=== PATIENT | female | born 1950 | race Caucasian/White ===

== ENCOUNTER → 2021-02-10 13:24 | Outpatient (CLI) | payer MEDICARE, SELFPAY ==
[2021-02-10] MEDS: COVID-19 VACC, Ad26(JANSSEN)/PF 0.5 ML IM (13:40)
== END ==
PROVIDERS: Visit Provider Internal Medicine
DX: Z23 Encounter for immunization (principal)
CPT/HCPCS: 0031A; 91303

== ENCOUNTER 2023-08-17 20:47 | Observation (INO) | payer MEDICARE, SELFPAY ==
[2023-08-17] VITALS (10 sets, daily range): BP systolic 122–171; BP diastolic 56–84; PULSE 79–119; RESP 18–24; TEMP 36.8–38.1; O2SAT 94–100; BMI 27.3
--- NOTE | 2023-08-17 21:01 | DI.CT.S_ITS ---
PROCEDURE: CT CERVICAL SPINE WO CON INDICATIONS: neck extension, altered mental status TECHNIQUE: Noncontrast 3 mm thick sections acquired from the skull base to the T4 level. Sagittal and coronal reformats were then constructed. For radiation dose reduction, the following was used: automated exposure control, adjustment of mA and/or kV according to patient size. COMPARISON: None. FINDINGS: Image quality: Excellent. Bones: No fractures or subluxation. There is multilevel degenerative disc disease and facet joint arthropathy. Visualized superior ribs are intact. Soft tissues: Prevertebral soft tissues are normal in thickness. No paravertebral hematomas. No apical pneumothoraces. IMPRESSION: 1. No fracture or subluxation. Dictated by: Ryley Flores M.D. on 08/17/2023 at 22:55 Approved by: Ryley Flores M.D. on 08/17/2023 at 22:57
--- NOTE | 2023-08-17 21:01 | DI.CT.S_ITS ---
PROCEDURE: CT HEAD/BRAIN WO CON INDICATIONS: altered mental status TECHNIQUE: Noncontrast 4.5 mm thick angled axial sections acquired from the foramen magnum to the vertex, with coronal and sagittal reformats. For radiation dose reduction, the following was used: automated exposure control, adjustment of mA and/or kV according to patient size. COMPARISON: None. FINDINGS: Image quality: Excellent. CSF spaces: Basal cisterns are patent. No extra-axial fluid collections. There is mild cerebral volume loss, with resultant ventricular and sulcal prominence. Brain: No intracranial hemorrhage, mass, or mass effect. There are subcortical, periventricular and deep white matter hypodensities consistent with mild chronic small vessel ischemic changes. The wright-white matter junction appears preserved. There is intracranial internal carotid artery atherosclerosis. Skull and face: Calvarium and visualized facial bones appear intact, without suspicious lesions. Sinuses: Visualized sinuses demonstrate mild mucosal thickening within the ethmoid and maxillary sinuses. Mastoid air cells are clear. IMPRESSION: 1. No acute intracranial abnormality. Dictated by: Ryley Flores M.D. on 08/17/2023 at 22:53 Approved by: Ryley Flores M.D. on 08/17/2023 at 22:55
--- NOTE | 2023-08-17 21:01 | DI.RAD.S_ITS ---
PROCEDURE: XR CHEST 1V INDICATIONS: sepsis TECHNIQUE: One view of the chest was acquired. COMPARISON: [facility], , CHEST 1 VIEW, 11/19/2013, 13:53. FINDINGS: Surgical changes and devices: None. Lungs and pleura: Lungs are clear. No pleural effusions or pneumothorax. Mediastinum: Mediastinal contours appear normal. Heart size is normal. Bones and chest wall: No suspicious bony lesions. Overlying soft tissues appear unremarkable. IMPRESSION: 1. No acute cardiopulmonary disease. Dictated by: Ryley Flores M.D. on 08/17/2023 at 22:57 Approved by: Ryley Flores M.D. on 08/17/2023 at 22:58
--- NOTE | 2023-08-17 21:07 | ED_ITS ---
HPI - General Adult General Chief complaint: Fever Stated complaint: Weakness Time Seen by Provider: 08/17/23 21:01 Source: patient and EMS Mode of arrival: EMS History of Present Illness HPI narrative: 73-year-old woman brought in by medics with altered mental staff. History per police and medics indicates that her dog had been working incessantly and neighbors called police. Patient was found lying in her bed with her neck extended somewhat confused. Medics were called. There is no evidence of overdose medications around her, her phone was found in another room and most recent phone call had been 12 hours prior. Patient was oriented to time and place but not to events. Was aware that she would made a phone call 12 hours be fore but not quite sure to home. Not complaining of headache but holding her neck in extension. Not complaining of any trauma. She was febrile with no signs of significant trauma no tenderness to neck palpation no significant muscle rigidity and no additional insight into events at this time. Related Data Home Medications Medication Instructions Recorded Confirmed No Known Home Medications 08/18/23 08/18/23 Allergies Allergy/AdvReac Type Severity Reaction Status Date / Time No Known Drug Allergies Allergy Verified 08/18/23 00:00 Review of Systems Review of Systems ROS Unobtainable: Unobtainable due to mental status/LOC Patient History Family History Mother Heart disease Hypertension Stroke Social History Smoking Status: Never smoker Exam Initial Vital Signs Initial Vital Signs: Vital Signs Pulse Rate 79 08/17/23 21:00 Respiratory Rate 23 08/17/23 21:00 Pulse Oximetry 100 08/17/23 21:00 General: Pale, confused, reasonably cooperative cooperative HEENT: Moist mucous membranes, normal sclera with reactive pupils, Neck: No JVD, holding her neck in extension. Not complaining of pain when her neck or lower back is manipulated. Respiratory: Lungs are clear to auscultation, no wheezing no rales no rhonchi. Full and symmetrical air movement Cardiac: Tachycardic but otherwise Regular rate and rhythm no murmurs no bruits Abdomen: Soft, nontender, good bowel tones, no flank pain Skin: Warm pale, no rashes no obvious cellulitis Neurologic: Grossly neurologically intact with no obvious asymmetries or abnormalities Extremities: No trauma, no lower extremity edema Psych: Cooperative, oriented to time and place but not to events and unable to supplement history Course Orders Ordered: ED Orders 08/17/23 21:01 CT cervical spine wo con Stat CT head/brain wo con Stat XR chest 1V Stat Arterial Blood Gas Stat EKG-12 Lead Stat 08/17/23 21:10 Complete Blood Count AUTO DIFF Stat Comprehensive Metabolic Panel Stat Lactate (Lactic Acid) Stat Procalcitonin Stat Troponin & CK Cardiac Panel Stat 08/17/23 21:12 Urinalysis and Microscopic Stat 08/17/23 21:15 Respiratory Panel (Film Array) Stat 08/17/23 21:30 Blood Culture Stat Sodium Chloride (Normal Saline 0.9%) 1,905.09 mls @ 635.03 mls/hr 30 ml/kg inf use over 3 hr (1905.09 ml) IV NOW ONE Stop: 08/18/23 00:05 Last Admin: 08/17/23 21:28 Dose: 635.03 mls/hr Documented By: JESSE Discontinued Medications Acetaminophen (Acetaminophen 325 Mg Tablet) 975 mg PO NOW ONE Stop: 08/17/23 21:02 Last Admin: 08/17/23 21:27 Dose: 975 mg Documented By: JESSE Cefepime HCl 2 gm/ Sodium (Chloride) 100 mls @ 200 mls/hr IV NOW ONE Stop: 08/17/23 21:02 Last Infusion: 08/17/23 22:53 Dose: 0 mls/hr Documented By: Admin: 08/17/23 22:18 Dose: 200 mls/hr Documented By: JESSE Vancomycin HCl (Vancomycin) 1,000 mg in 200 mls @ 200 mls/hr IV NOW ONE Stop: 08/17/23 22:00 Last Admin: 08/17/23 22:57 Dose: 200 mls/hr Documented By: JESSE Acyclovir 630 mg/ Dextrose 250 mls @ 250 mls/hr IV NOW ONE Stop: 08/17/23 21:02 Last Infusion: 08/17/23 23:26 Dose: 0 mls/hr Documented By: Admin: 08/17/23 21:58 Dose: 250 mls/hr Documented By: JESSE Vital Signs Vital signs: Vital Signs - 8 hr 08/17/23 21:01 08/17/23 21:27 08/17/23 21:00 Temperature 99.7 F H 100.4 F H Pulse Rate 118 H 79 Respiratory Rate 24 23 Blood Pressure 171/84 H Pulse Oximetry 96 100 Oxygen Delivery Method Room Air 08/17/23 21:30 08/17/23 22:00 08/17/23 22:04 Temperature 100.6 F H 100.6 F H Pulse Rate 85 80 Respiratory Rate 22 Blood Pressure 153/79 H Pulse Oximetry 96 96 Oxygen Delivery Method 08/17/23 22:04 08/17/23 22:30 08/17/23 22:30 Temperature 100.6 F H 99.5 F Pulse Rate 81 119 H Respiratory Rate 24 21 Blood Pressure 138/69 Pulse Oximetry 96 97 Oxygen Delivery Method 08/17/23 22:54 08/17/23 23:00 08/17/23 23:00 Temperature 99.0 F 98.8 F Pulse Rate 112 H Respiratory Rate 24 Blood Pressure 139/63 Pulse Oximetry 97 Oxygen Delivery Method Medical Decision Making Lab Data 08/17/23 21:10 08/17/23 21:10 Labs: Lab Results 08/17/23 08/17/23 08/17/23 Range/Units 21:10 21:10 21:10 WBC 6.1 (4.5-11.0) X10^3/uL RBC 3.52 L (4.0-5.2) X10^6/uL Hgb 11.6 L (12.0-16.0) g/dL Hct 33.1 L (36-46) % MCV 93.9 (80-100) fL MCH 32.8 (26-34) PG MCHC 34.9 (30-36) % RDW 13.6 (11.6-14.8) % Plt Count 133 L (150-400) X10^3/uL Neut % (Auto) 88.1 H (50-75) % Lymph % (Auto) 3.0 L (25-40) % [place] % (Auto) 8.4 (3-14) % Eos % (Auto) 0.0 L (2-4) % Baso % (Auto) 0.5 (0-2) % Neut # (Auto) 5400 (8697-8667) /uL Lymph # (Auto) 200 L (8473-4010) /uL [place] # (Auto) 500 (0-900) /uL Eos # (Auto) 0 (0-450) /uL Baso # (Auto) 0 (0-100) /uL Sodium 132 L (137-145) mmol/L Potassium 3.6 (3.4-5.1) mmol/L Chloride 100 (98-107) mmol/L Carbon Dioxide 21 L (22-32) mmol/L BUN 18 H (7-17) mg/dL Creatinine 0.68 (0.52-1.04) mg/dL Estimated GFR > 60 (>60) mL/min BUN/Creatinine Ratio 26.5 H (6-22) Glucose 179 H (80-110) mg/dL Lactate 1.1 (0.7-2.1) mmol/L Calcium 9.4 (8.4-10.2) mg/dL Total Bilirubin 0.5 (0.2-1.3) mg/dL AST 30 (14-36) IU/L ALT 18 (<35) IU/L Alkaline Phosphatase 63 (38-126) U/L Total Creatine Kinase 69 (30-135) U/L Troponin I < 0.012 (0.01-0.034) ng/mL Total Protein 8.2 (6.3-8.2) g/dL Albumin 4.3 (3.5-5.0) g/dL Globulin 3.9 (1.7-4.1) g/dL Albumin/Globulin Ratio 1.1 (1.0-2.8) Procalcitonin 0.05 (<0.5) ng/mL Urine Color Urine Appearance Urine pH (4.5-8.0) Ur Specific [place] (1.000-1.035) Urine Protein (Negative) Urine Glucose (UA) (Negative) g/dL Urine Ketones (NEGATIVE) Urine Occult Blood (Negative) Urine Nitrate (Negative) Urine Bilirubin (NEGATIVE) Urine Urobilinogen (0.2) E.U./dL Ur Leukocyte Esterase (NEGATIVE) Urine RBC (0-5/HPF) Urine WBC (0-5/HPF) Ur Squamous Epith Cells (0-5/HPF) Amorphous Sediment Urine Bacteria (None) Ur Culture Indicated? Chlamy pneumoniae PCR (Not Detect) Adenovirus (PCR) (Not Detect) B. pertussis DNA (PCR) (Not Detecte) B.parapertussis DNA PCR (Not Detecte) Coronavirus OC43 (PCR) (Not Detect) Coronavirus HKU1 (PCR) (Not Detect) Coronavirus 229E (PCR) (Not Detect) SARS-CoV-2 (PCR) (Not Detecte) Coronavirus NL63 (PCR) (Not Detect) Human Metapneumovir PCR (Not Detect) Influenza Type A (PCR) (Not Detect) Influenza Type B (PCR) (Not Detect) M. pneumoniae (PCR) (Not Detect) Parainfluenza 1 (PCR) (Not Detect) Parainfluenza 2 (PCR) (Not Detect) Parainfluenza 3 (PCR) (Not Detect) Parainfluenza 4 (PCR) (Not Detect) RSV (PCR) (Not Detect) Entero/Rhino (PCR) (Not Detect) 08/17/23 08/17/23 Range/Units 21:12 21:15 WBC (4.5-11.0) X10^3/uL RBC (4.0-5.2) X10^6/uL Hgb (12.0-16.0) g/dL Hct (36-46) % MCV (80-100) fL MCH (26-34) PG MCHC (30-36) % RDW (11.6-14.8) % Plt Count (150-400) X10^3/uL Neut % (Auto) (50-75) % Lymph % (Auto) (25-40) % [place] % (Auto) (3-14) % Eos % (Auto) (2-4) % Baso % (Auto) (0-2) % Neut # (Auto) (7485-5233) /uL Lymph # (Auto) (5200-8204) /uL [place] # (Auto) (0-900) /uL Eos # (Auto) (0-450) /uL Baso # (Auto) (0-100) /uL Sodium (137-145) mmol/L Potassium (3.4-5.1) mmol/L Chloride (98-107) mmol/L Carbon Dioxide (22-32) mmol/L BUN (7-17) mg/dL Creatinine (0.52-1.04) mg/dL Estimated GFR (>60) mL/min BUN/Creatinine Ratio (6-22) Glucose (80-110) mg/dL Lactate (0.7-2.1) mmol/L Calcium (8.4-10.2) mg/dL Total Bilirubin (0.2-1.3) mg/dL AST (14-36) IU/L ALT (<35) IU/L Alkaline Phosphatase (38-126) U/L Total Creatine Kinase (30-135) U/L Troponin I (0.01-0.034) ng/mL Total Protein (6.3-8.2) g/dL Albumin (3.5-5.0) g/dL Globulin (1.7-4.1) g/dL Albumin/Globulin Ratio (1.0-2.8) Procalcitonin (<0.5) ng/mL Urine Color Yellow Urine Appearance Clear Urine pH 7.5 (4.5-8.0) Ur Specific [place] 1.020 (1.000-1.035) Urine Protein Negative (Negative) Urine Glucose (UA) Negative (Negative) g/dL Urine Ketones 1+ H (NEGATIVE) Urine Occult Blood 1+ H (Negative) Urine Nitrate Negative (Negative) Urine Bilirubin Negative (NEGATIVE) Urine Urobilinogen 1.0 (0.2) E.U./dL Ur Leukocyte Esterase Negative (NEGATIVE) Urine RBC 5-10/hpf H (0-5/HPF) Urine WBC 0-1/hpf (0-5/HPF) Ur Squamous Epith Cells 0-1 /hpf (0-5/HPF) Amorphous Sediment 2+ Urine Bacteria Occasional (0-1) (None) Ur Culture Indicated? Cult not indicated Chlamy pneumoniae PCR Not detected (Not Detect) Adenovirus (PCR) Not detected (Not Detect) B. pertussis DNA (PCR) Not detected (Not Detecte) B.parapertussis DNA PCR Not detected (Not Detecte) Coronavirus OC43 (PCR) Not detected (Not Detect) Coronavirus HKU1 (PCR) Not detected (Not Detect) Coronavirus 229E (PCR) Not detected (Not Detect) SARS-CoV-2 (PCR) Detected H (Not Detecte) Coronavirus NL63 (PCR) Not detected (Not Detect) Human Metapneumovir PCR Not detected (Not Detect) Influenza Type A (PCR) Not detected (Not Detect) Influenza Type B (PCR) Not detected (Not Detect) M. pneumoniae (PCR) Not detected (Not Detect) Parainfluenza 1 (PCR) Not detected (Not Detect) Parainfluenza 2 (PCR) Not detected (Not Detect) Parainfluenza 3 (PCR) Not detected (Not Detect) Parainfluenza 4 (PCR) Not detected (Not Detect) RSV (PCR) Not detected (Not Detect) Entero/Rhino (PCR) Not detected (Not Detect) MDM Narrative Medical decision making narrative: CC: Altered mental status Complicating co-morbidities: Depression Data collected from: patient, medics, police Social determinants of health that may influence the patients condition: Confusion, lives alone no close family Differential considered: Differential is wide and includes bacterial infection including meningitis, viral infection including viral encephalitis, seizure, stroke, medication overdose accidental or purposeful Exam documented above, pertinent findings include: Odd overall presentation with extension of her head and neck, globally weak but no focal neurologic lesions. She is able to answer direct specific questions but overall is confused and not aware of situational details Lab Test results independently reviewed as above. Pertinent findings: CBC shows no significant leukocytosis, mild anemia at 11.6 and 33.1 Chemistries show sodium of 132 potassium appropriate normal renal function glucose at 179 Initial lactic acid is 1.1 Initial troponin is undetectable Procalcitonin is undetectable Urine has ketones and red cells does not look infected Respiratory panel returned positive for COVID Venous blood gas shows hyperventilation with a pH 7.5 and a CO2 of 30 Independently reviewed EKG sinus tachycardia at a rate of 115, normal intervals and normal axis, mild lateral ST depression without any corresponding ST elevation Imaging studies independently reviewed: Chest x-ray shows no acute disease CT scan of her brain done for altered mental status shows no acute intracranial abnormalities CT scan of the cervical spine because of the on initial presentation and persistent extension of her C-spine shows no fractures or subluxation Consultations: Treatments: Patient has responded to saline with heart rate coming down nicely. She has not been hypotensive, she is not febrile at this time. Room air saturations are ranging from 95-100%. Re-evaluations: 1230 a.m.. After fluid resuscitation patient is re-evaluated. She is significantly improved. She is alert and conversant globally weak not hypoxic. Notes that she has never had COVID but has been vaccinated. She did have a friend in her [employer] study class that recently was COVID positive. Discussion: 73-year-old woman who lives independently global weakness significantly altered mental status on arrival and has responded nicely to si mple fluid resuscitation. No evidence of sepsis or severe pneumonia with hypoxia. Because of the altered mental status and global weakness will suggest hospitalization until she is strong enough to eat and move independently. Will discuss with the hospitalist service. Discharge Plan Departure Patient Disposition: Admitted as Observation Clinical Impression: Acute alteration in mental status, COVID
[2023-08-17 21:22] LABS: Appearance Urine UA CLEAR; Bilirubin Urine UA NEGATIVE (NEGATIVE); Color Urine UA YELLOW; Glucose Urine UA NEGATIVE (Negative); Ketones Urine UA 1+ (NEGATIVE); Leukocyte Esterase Urine UA NEGATIVE (NEGATIVE); Nitrite Urine UA NEGATIVE (Negative); Occult Blood Urine UA 1+ (Negative); Protein Urine UA NEGATIVE (Negative)
[2023-08-17] MEDS: ACETAMINOPHEN 325 MG TABLET 975 MG PO (21:27)
[2023-08-17 21:28] LABS: Add Manual Diff / Slide Review NO; Basophils Absolute Auto 0 /uL (0-100); Basophils Percent Auto 0.5 % (0-2); Eosinophils Absolute Auto 0 /uL (0-450); Hematocrit 33.1 % (36-46); Hemoglobin 11.6 g/dL (12.0-16.0); Lymphocytes Absolute Auto 200 /uL (1100-4500); Mean Corpuscular HGB Conc 34.9 % (30-36); Mean Corpuscular Hemoglobin 32.8 PG (26-34); Mean Corpuscular Volume 93.9 fL (80-100); Monocytes Absolute Auto 500 /uL (0-900); Monocytes Percent Auto 8.4 % (3-14); Neutrophils Absolute Auto 5400 /uL (1500-7000); Neutrophils Percent Auto 88.1 % (50-75); Platelet Count 133 X10^3/uL (150-400); Red Blood Cell Count 3.52 X10^6/uL (4.0-5.2); Red Cell Distribution Width 13.6 % (11.6-14.8); White Blood Cell Count 6.1 X10^3/uL (4.5-11.0)
[2023-08-17] MEDS: SODIUM CHLORIDE 0.9% 1,905.09 ML 635.03 ML IV (21:28)
[2023-08-17 21:35] LABS: pH Urine UA 7.5 (4.5-8.0)
[2023-08-17 21:36] LABS: Amorphous Sediment Urine 2+; Bacteria Urine Occasional (0-1); RBC Urine 5-10/HPF (0-5/HPF); Squamous Epithelial Cell Urine 0-1 /HPF (0-5/HPF); WBC Urine 0-1/HPF (0-5/HPF)
[2023-08-17 21:37] LABS: Culture Indicated Urine Cult Not Indicated
[2023-08-17 21:41] LABS: Alanine Aminotransferase 18 IU/L (<35); Albumin 4.3 g/dL (3.5-5.0); Albumin Globulin Ratio 1.1 (1.0-2.8); Alkaline Phosphatase 63 U/L (38-126); Aspartate Aminotransferase 30 IU/L (14-36); BUN Creatinine Ratio 26.5 (6-22); Bilirubin Total 0.5 mg/dL (0.2-1.3); Blood Urea Nitrogen 18 mg/dL (7-17); Calcium 9.4 mg/dL (8.4-10.2); Carbon Dioxide 21 mmol/L (22-32); Chloride 100 mmol/L (98-107); Creatine Kinase 69 U/L (30-135); Estimated Glomerular Filt Rate > 60 mL/min (>60); Globulin 3.9 g/dL (1.7-4.1); Glucose 179 mg/dL (80-110); HEMOLYSIS < 15 (0-50); Lactate (Lactic Acid) 1.1 mmol/L (0.7-2.1); Potassium 3.6 mmol/L (3.4-5.1); Sodium 132 mmol/L (137-145); Total Protein 8.2 g/dL (6.3-8.2)
[2023-08-17 21:52] LABS: Troponin I < 0.012 ng/mL (0.01-0.034)
[2023-08-17 21:57] LABS: Procalcitonin 0.05 ng/mL (<0.5)
[2023-08-17] MEDS: WATER IV (21:58)
[2023-08-17] MEDS: DEXTROSE 5% IV (21:58)
[2023-08-17] MEDS: ACYCLOVIR IV (21:58)
[2023-08-17 22:17] LABS: Adenovirus Not Detected (Not Detect); B. parapertussis Not Detected (Not Detecte); Bordetella pertussis Not Detected (Not Detecte); Chlamydophila pneumoniae Not Detected (Not Detect); Coronavirus 229E Not Detected (Not Detect); Coronavirus HKU1 Not Detected (Not Detect); Coronavirus NL 63 Not Detected (Not Detect); Coronavirus OC43 Not Detected (Not Detect); Human Metapneumovirus Not Detected (Not Detect); Human Rhinovirus/Enterovirus Not Detected (Not Detect); Influenza A Not Detected (Not Detect); Influenza B Not Detected (Not Detect); Mycoplasma pneumoniae Not Detected (Not Detect); Parainfluenza Virus 1 Not Detected (Not Detect); Parainfluenza Virus 2 Not Detected (Not Detect); Parainfluenza Virus 3 Not Detected (Not Detect); Parainfluenza Virus 4 Not Detected (Not Detect); Respiratory Syncytial Virus Not Detected (Not Detect)
[2023-08-17 22:18] LABS: SARS- CoV-2 Detected (Not Detecte)
[2023-08-17] MEDS: CEFEPIME 2 GM in SODIUM CHLORIDE 0.9% 100 ML IV (22:18)
[2023-08-17] MEDS: VANCOMYCIN 1,000 MG/200 ML PIGGYBACK 200 MG IV (22:57)
[2023-08-18] VITALS (17 sets, daily range): BP systolic 109–158; BP diastolic 57–82; PULSE 18–105; RESP 14–24; TEMP 36.1–37.6; O2SAT 93–99; BMI 27.3
--- NOTE | 2023-08-18 00:52 | P.HP_ITS ---
History of Present Illness History of Present Illness Date Patient Seen: 08/18/23 Time Patient Seen: 02:00 Chief complaint: Weakness Narrative: 73 y/o F brought in since she was found with ams and lethargic. pt slow to respond but no hx of fall or focal weakness or cough or sob or cp. mentation improved with ivf. Pt was found to have low grade fever and tachycardia and positive covid test but no infoltrate in cxr. Her work up including CT head and neck negative. Her u/a and lactic acid/procalcitonin are negative as well. there was no hypotension or hypoxia. fever and tachycardia and AMS improved in the Ed [facility] Family History Mother Heart disease Hypertension Stroke Social History Smoking Status: Never smoker Meds Home Medications and Allergies Home Medications Medication Instructions Recorded Confirmed Type No Known Home Medications 08/18/23 08/18/23 History Allergies Allergy/AdvReac Type Severity Reaction Status Date / Time No Known Drug Allergies Allergy Verified 08/18/23 00:00 Review of Systems Review of Systems Narrative: negative exept what was mentioned in the HPI Exam Vital Signs (past 8 hours): - 08/17/23 21:01 08/17/23 21:27 08/17/23 21:00 Temperature 99.7 F H 100.4 F H Pulse Rate 118 H 79 Respiratory Rate 24 23 Blood Pressure 171/84 H Pulse Oximetry 96 100 Oxygen Delivery Method Room Air 08/17/23 21:30 08/17/23 22:00 08/17/23 22:04 Temperature 100.6 F H 100.6 F H Pulse Rate 85 80 Respiratory Rate 22 Blood Pressure 153/79 H Pulse Oximetry 96 96 Oxygen Delivery Method 08/17/23 22:04 08/17/23 22:30 08/17/23 22:30 Temperature 100.6 F H 99.5 F Pulse Rate 81 119 H Respiratory Rate 24 21 Blood Pressure 138/69 Pulse Oximetry 96 97 Oxygen Delivery Method 08/17/23 22:54 08/17/23 23:00 08/17/23 23:00 Temperature 99.0 F 98.8 F Pulse Rate 112 H Respiratory Rate 24 Blood Pressure 139/63 Pulse Oximetry 97 Oxygen Delivery Method 08/17/23 23:30 08/17/23 23:30 08/18/23 00:00 Temperature 98.2 F Pulse Rate 110 H Respiratory Rate 18 Blood Pressure 122/56 L 121/57 L Pulse Oximetry 94 Oxygen Delivery Method 08/18/23 00:00 Temperature 98.1 F Pulse Rate 105 H Respiratory Rate 24 Blood Pressure Pulse Oximetry 95 Oxygen Delivery Method Oxygen Delivery Method Room Air Const General: comfortable Neck Neck: normal visual inspection Cardio Rate: regular rate Rhythm: regular rhythm GI Inspection: normal to inspection Neuro General: patient alert and patient awake Other: no gross focal neurological deficits Objective ECG Impression: no acute ischemia Labs 08/17/23 21:10 08/17/23 21:10 Labs: Laboratory Results - last 24 hr 08/17/23 08/17/23 08/17/23 21:10 21:10 21:10 WBC 6.1 RBC 3.52 L Hgb 11.6 L Hct 33.1 L MCV 93.9 MCH 32.8 MCHC 34.9 RDW 13.6 Plt Count 133 L Neut % (Auto) 88.1 H Lymph % (Auto) 3.0 L [place] % (Auto) 8.4 Eos % (Auto) 0.0 L Baso % (Auto) 0.5 Neut # (Auto) 5400 Lymph # (Auto) 200 L [place] # (Auto) 500 Eos # (Auto) 0 Baso # (Auto) 0 Sodium 132 L Potassium 3.6 Chloride 100 Carbon Dioxide 21 L BUN 18 H Creatinine 0.68 Estimated GFR > 60 BUN/Creatinine Ratio 26.5 H Glucose 179 H Lactate 1.1 Calcium 9.4 Total Bilirubin 0.5 AST 30 ALT 18 Alkaline Phosphatase 63 Total Creatine Kinase 69 Troponin I < 0.012 Total Protein 8.2 Albumin 4.3 Globulin 3.9 Albumin/Globulin Ratio 1.1 Procalcitonin 0.05 Urine Color Urine Appearance Urine pH Ur Specific [place] Urine Protein Urine Glucose (UA) Urine Ketones Urine Occult Blood Urine Nitrate Urine Bilirubin Urine Urobilinogen Ur Leukocyte Esterase Urine RBC Urine WBC Ur Squamous Epith Cells Amorphous Sediment Urine Bacteria Ur Culture Indicated? Chlamy pneumoniae PCR Adenovirus (PCR) B. pertussis DNA (PCR) B.parapertussis DNA PCR Coronavirus OC43 (PCR) Coronavirus HKU1 (PCR) Coronavirus 229E (PCR) SARS-CoV-2 (PCR) Coronavirus NL63 (PCR) Human Metapneumovir PCR Influenza Type A (PCR) Influenza Type B (PCR) M. pneumoniae (PCR) Parainfluenza 1 (PCR) Parainfluenza 2 (PCR) Parainfluenza 3 (PCR) Parainfluenza 4 (PCR) RSV (PCR) Entero/Rhino (PCR) 08/17/23 08/17/23 21:12 21:15 WBC RBC Hgb Hct MCV MCH MCHC RDW Plt Count Neut % (Auto) Lymph % (Auto) [place] % (Auto) Eos % (Auto) Baso % (Auto) Neut # (Auto) Lymph # (Auto) [place] # (Auto) Eos # (Auto) Baso # (Auto) Sodium Potassium Chloride Carbon Dioxide BUN Creatinine Estimated GFR BUN/Creatinine Ratio Glucose Lactate Calcium Total Bilirubin AST ALT Alkaline Phosphatase Total Creatine Kinase Troponin I Total Protein Albumin Globulin Albumin/Globulin Ratio Procalcitonin Urine Color Yellow Urine Appearance Clear Urine pH 7.5 Ur Specific [place] 1.020 Urine Protein Negative Urine Glucose (UA) Negative Urine Ketones 1+ H Urine Occult Blood 1+ H Urine Nitrate Negative Urine Bilirubin Negative Urine Urobilinogen 1.0 Ur Leukocyte Esterase Negative Urine RBC 5-10/hpf H Urine WBC 0-1/hpf Ur Squamous Epith Cells 0-1 /hpf Amorphous Sediment 2+ Urine Bacteria Occasional (0-1) Ur Culture Indicated? Cult not indicated Chlamy pneumoniae PCR Not detected Adenovirus (PCR) Not detected B. pertussis DNA (PCR) Not detected B.parapertussis DNA PCR Not detected Coronavirus OC43 (PCR) Not detected Coronavirus HKU1 (PCR) Not detected Coronavirus 229E (PCR) Not detected SARS-CoV-2 (PCR) Detected H Coronavirus NL63 (PCR) Not detected Human Metapneumovir PCR Not detected Influenza Type A (PCR) Not detected Influenza Type B (PCR) Not detected M. pneumoniae (PCR) Not detected Parainfluenza 1 (PCR) Not detected Parainfluenza 2 (PCR) Not detected Parainfluenza 3 (PCR) Not detected Parainfluenza 4 (PCR) Not detected RSV (PCR) Not detected Entero/Rhino (PCR) Not detected Assessment & Plan Assessment & Plan narrative: 73 y/o F with: # AMS: resolved, possibly due to covid versus vesovegal, can not rule out TIA, tele, asa, lipitor, brain MRI, echo, ivf, neurochecks, orthostatic BPs, fall precautions # covid+: no sob or cough but at high risk with age and AMS, Start paxlovid, monitor, isolate # Hx of HTN: prn meds at this time # Hx of CVA: continue home meds
[2023-08-18 00:57] LABS: UR Morphine/Opiate cutoff 300 Negative (Negative); Ur Creatinine Normal (Normal); Ur Specific Gravity Normal (Normal); Urine Amphetamines Negative (Negative); Urine Barbiturates Negative (Negative); Urine Benzodiazepines Negative (Negative); Urine Cocaine Negative (Negative); Urine MDMA Negative (Negative); Urine Methadone Negative (Negative); Urine Methamphetamines Negative (Negative); Urine Oxycodone Negative (Negative); Urine Phencyclidine Negative (Negative); Urine Tetrahydrocannabinol Negative (Negative); Urine Tricyclic Antidepressant Negative (Negative); Urine pH Normal (Normal)
[2023-08-18] MEDS: SODIUM CHLORIDE 0.9% 1,000 ML 100 ML IV (02:14)
--- NOTE | 2023-08-18 02:40 | DI.ECHO.S_ITS ---
[place] [facility]---------+ [facility] +---------+ : : [address] : : : : [id number] : : : : Phone: [phone]---------+ Echocardiogram Report + + :Name: JOVAN MORGAN Study Date: 08/18/2023 Height: 60 in : :[facility] ReadingLocation: Weight: 140 lb : : Gender: Female BSA: 1.6 m2 : :: 1950 Age: 73 yrs BP: 130/78 mmHg: :Reason For Study: TIA : :Ordering Physician: JARETH, : :VERN Soriano MD Performed By: Tonia Dunlap : :Referring: VERN TEMPLETON MD : + + Interpretation Summary Normal sinus rhythm. Normal LV size and wall thickness. Normal wall motion and LV systolic function. Ejection fraction is 60-65%. Stage I diastolic dysfunction. Mild left atrial enlargement ; otherwise normal chamber sizes. No significant valvular abnormalities. No source of embolism found. No PFO based on color flow Doppler. No prior study available for comparison. Procedure: A two-dimensional transthoracic echocardiogram with color flow and Doppler was performed. The study quality was technically adequate. There is no prior echocardiogram noted for this patient. The patient was in sinus rhythm with heart rates between 85-88 bpm during the exam. Left Ventricle: The left ventricle is normal in size and wall thickness. The ejection fraction is estimated to be 60-65%. Right Ventricle: The right ventricle is normal in size and function. Atria: The left atrium is mildly dilated. Right atrial size is normal. There is no Doppler evidence for an interatrial shunt. Mitral Valve: The mitral valve is normal in structure and function. There is mild mitral regurgitation. Aortic Valve: The aortic valve is trileaflet. The aortic valve opens well. There is no aortic valve stenosis. No aortic regurgitation is present. Tricuspid Valve: The tricuspid valve is normal in structure and function. There is mild tricuspid regurgitation. Pulmonic Valve: The pulmonic valve leaflets are thin and pliable; valve motion is normal. There is no pulmonic valvular regurgitation. Great Vessels: The aortic root is normal size. The dimensions of the ascending aorta are normal. The IVC is dilated (diameter is greater than 2.1 cm) and it collapses less than 50% with a sniff. This suggests a high right atrial pressure of 15 mm Hg. Pericardium/ Pleura There is no pericardial effusion. There is no pleural effusion. MMode/2D Measurements & Calculations LVIDd: 4.7 cm LVOT diam: 2.0 cm LVIDs: 3.0 cm Ao root diam: 3.2 cm FS: 35.9 % asc Aorta Diam: 2.9 cm IVSd: 1.2 cm Ao Arch Diam (Prox Trans): 2.2 cm LVPWd: 0.91 cm LV horton. diameter/BSA (cm/m^2): 3.0 LV sys. diameter/BSA (cm/m^2): 1.9 LA A2 area: 21.3 cm2 RA long axis: 4.4 cm LA A4 area: 18.0 cm2 RA area: 13.8 cm2 LA length (vol): 5.3 cm RA vol: 36.9 ml LA vol: 61.5 ml RA : 23.0 ml/m2 LA vol index: 38.3 ml/m2 IVC diam: 2.6 cm RVD1 (basal): 3.5 cm RVD2 (mid): 3.6 cm TAPSE: 2.3 cm Doppler Measurements & Calculations Ao V2 max: 157.8 cm/sec LVOT Max Micah: 96.7 cm/sec Ao V2 mean: 109.3 cm/sec LV V1 max P.7 mmHg Ao max P.0 mmHg LV V1 VTI: 20.8 cm Ao mean P.3 mmHg PABLO(I,D): 2.2 cm2 Ao V2 VTI: 31.2 cm PABLO(V,D): 2.0 cm2 sev ratio: 0.67 PABLO indexed to BSA (cm^2/m^2): 1.4 MV E max micah: 82.4 cm/sec PA V2 max: 100.5 cm/sec MV A max micah: 126.3 cm/sec PA V2 mean: 77.3 cm/sec MV E/A: 0.65 PA mean P.5 mmHg Med Peak E' Micah: 7.5 cm/sec PA pr(Accel): 17.3 mmHg E/E' med: 11.0 Lat Peak E' Micah: 10.0 cm/sec E/E' lat: 8.3 E/e' average: 9.6 MV dec time: 0.16 sec SV(LVOT): 67.9 ml Electronically signed by: Katarina Che M.D. on Reading Physician:08/18/2023 11:49 AM
[2023-08-18] MEDS: ONDANSETRON 4 MG/2 ML INJ IV (03:36)
[2023-08-18] MEDS: ACETAMINOPHEN 325 MG TABLET PO ×2 (04:07→09:47)
[2023-08-18 05:21] LABS: PCO2 ABG 30.2 mmHg (35-45); PO2 ABG 84 mmHg (80-100); pH ABG 7.52 (7.35-7.45)
[2023-08-18 05:22] LABS: Fractionated Inspired Oxygen 21; HCO3 ABG 25 mmol/L (23-27); Oxygen Saturation ABG 97 % (95-100); TCO2 ABG 26 mmol/L (23-27)
[2023-08-18 07:54] LABS: Add Manual Diff / Slide Review NO; Basophils Absolute Auto 0 /uL (0-100); Basophils Percent Auto 0.3 % (0-2); Eosinophils Absolute Auto 0 /uL (0-450); Hematocrit 28.8 % (36-46); Lymphocytes Absolute Auto 200 /uL (1100-4500); Lymphocytes Percent Auto 5.2 % (25-40); Mean Corpuscular HGB Conc 34.8 % (30-36); Mean Corpuscular Hemoglobin 32.6 PG (26-34); Mean Corpuscular Volume 93.6 fL (80-100); Monocytes Absolute Auto 500 /uL (0-900); Monocytes Percent Auto 11.6 % (3-14); Neutrophils Absolute Auto 3500 /uL (1500-7000); Neutrophils Percent Auto 82.9 % (50-75); Platelet Count 103 X10^3/uL (150-400); Red Blood Cell Count 3.08 X10^6/uL (4.0-5.2); Red Cell Distribution Width 13.4 % (11.6-14.8); White Blood Cell Count 4.2 X10^3/uL (4.5-11.0)
[2023-08-18 08:18] LABS: BUN Creatinine Ratio 18.5 (6-22); Blood Urea Nitrogen 10 mg/dL (7-17); Calcium 8.7 mg/dL (8.4-10.2); Carbon Dioxide 21 mmol/L (22-32); Chloride 104 mmol/L (98-107); Estimated Glomerular Filt Rate > 60 mL/min (>60); Glucose 142 mg/dL (80-110); HEMOLYSIS < 15 (0-50); Potassium 3.4 mmol/L (3.4-5.1); Sodium 131 mmol/L (137-145)
[2023-08-18] MEDS: HEPARIN 5,000 UNIT/ML VIAL 5000 UNIT SUBCUT ×2 (09:19→21:07)
[2023-08-18] MEDS: ASPIRIN EC 81 MG TABLET PO (09:20)
--- NOTE | 2023-08-18 11:09 | CM.DANOTE ---
Addendum entered by Tahira Tierney R.N. 08/18/23 15:42: April at [facility] confirmed is now contracted with [facility]. She will submit auth as soon as O.T. note is in, can't guarantee that they will auth her, since she was a one assist. Addendum entered by Tahira Tierney R.N. 08/18/23 15:04: Confirmed with Charley at [facility], would have to be here 10 days for them to accept COVID, and she indicated that insurance most likely will not approve, she did move 35 feet. Addendum entered by Tahira Tierney R.N. 08/18/23 14:34: Left message with Marisa at [facility] to see if they are contracted with [employer] as of yet, and if they have COVID beds. Gave her patient information. Just noticed that she was one assist with P.T, recommending 24 assist versus skilled, most likely will not qualify with her insurance. As stated in prior notes, friend, Eliza, will see if she can find someone at the [employer] to assist patient when she goes home. Addendum entered by Tahira Tierney R.N. 08/18/23 12:40: Dr. Langston came by, had just seen patient, stated, she most likely can go today, her mentation is more clear, just some sinus issues. Will work with P.T, friend will most likely be the one to transport. Will print out providers for [facility]. Addendum entered by Tahira Tierney R.N. 08/18/23 12:15: Patient's friend, Eliza, called back. Stated that she is in touch with patient's mental counselor, Flaca. Did not feel comfortable giving out her number as of yet. She stated that their [employer], [employer], is willing to assist with meal delivery, may be able to see if someone can stay with her. She is updated that patient could discharge today if she does well with P.T, versus tomorrow. No other medical care needs. Original Note: DCP: Case received, EMR reviewed. Attempted to call patient, is COVID positive, and have not been able to reach her, no other family listed. Friend, Eliza Humera, came in to see patient. She is a friend. Her phone number is: [phone]. She was able to offer some information to complete DCP assessment. Patient is a 73 year old female who admitted early this morning to the care of the hospitalist team. PCP: None Payer: confirmed: [employer]. Patient came to the hospital via ambulance secondary to altered mental status. Notes indicate that police and medics indicated that dog had been working incessantly, neighbors had called 911. Patient was found lying in her bed, somewhat confused'. There was no evidence of overdose medications, phone was found in another room. Patient was febrile, oriented to tome and place, but not events. Patient was diagnosed with COVID, was vaccinated, notes also indicate that patient has a friend in her [employer] study class that was recently COVID positive. Patient's symptoms had improved in the ED, per hospitalist today, most likely was a social admission. Patient will have some testing, rule out TIA, vasovegal. It is also noted that MRI was ordered. She is also to be working with P.T, and O.T. Patient's friend, Eliza Grubbs, came in, her phone is listed in note above. Confirmed that patient resides alone here in [place]. She has no family, gave her son up for adoption when born. Preston William, who is listed on face sheet is a friend, as Eliza is. Patient is independent at baseline, has no primary care provider. Friend indicated, she has trust issues, has a counselor, but not sure who. Asked her if she knows if patient is on any type of Medicaid, friend indicated, she is very limited on her finances. Asked her if she feels if patient can fill out Medicaid application, stated, she's not sure if she can. Let her know that patient most likely will need to go home, she does not qualify for any type of home health, has no provider, but can get her set up with someone at [facility], if she is willing to do so. Called [facility], spoke to Karen. Asked her if patient is on Medicaid. 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 Karen was able to state that mayank has an income of about $834.00 per month, but has a checking and saving account of about $60,000. She did indicate that patient may qualify for [employer], which is a resource for seniors. Patient has [employer] Medicare. Did speak to Cherie at [facility], they have no quarantine beds, but did leave a message with Charley at [facility]. [facility] does not take COVID positive patients. Plan may most likely need to be home, but do need to have patient work with P.T. P: DCP to continue to follow. Patient is OBS, social admission, can attempt skilled, most likely will not be able to accept due to COVID, but have not yet heard back from [facility]. Barrier is that patient has no provider, lives alone, only has friends in the area. Will follow closely and collaborate with the therapy team. Tahira Tierney RN/Brake Mechanic Discharge Planning/Care Management CM Discharge Assessment Start: 08/18/23 11:03 Freq: Status: Active Protocol: Document 08/18/23 11:03 (Rec: 08/18/23 11:09 [id number]) Discharge Planning Assessment Assigned Flower Maker Tahira Tierney RN/Brake Mechanic Advance Directives? No History Provided By Patient,Medical Record Prior Living Arrangements Apartment/Condo Household Members none Type of transporation used prior to Drives own vehicle admit Independent with ADL's Yes Is patient alert and oriented? Yes Caregiver for Another No Barriers to Discharge Yes Comment Lives alone, has no primary care provider or family, has anxiety about sharing any of her information, has limited finances, can't order home health, no PCP, will not qualify for skilled stay, social admission, is also COVID positive Discharge Plan Home Transportation Arrangement Friend Referrals Initiated Other Additional Comment Will see how she does with P.T . If patient plan is home with home health Will not qualify, has no PCP : Has signed face to face form been completed? Whiteboard Updated in Patient Room with No name and ext. # of Flower Maker Comment Patient is COVID positive Review Status In Process Next Review Type Continued Stay Review
--- NOTE | 2023-08-18 12:09 | PT.IIE ---
Physical Therapy Inpatient Evaluation/Re-Eval M1 PT/OT-IP Prior Functional Status Start: 08/18/23 13:58 Freq: NEEDED Status: Active Protocol: Document 08/18/23 12:09 AB (Rec: 08/18/23 14:10 AB [email or web address]) Medical Review Prior Functional Status Medical History Reviewed Yes Communication able to make needs known Mobility and Gait pt stated that she is independent with all mobilities and ambulation without AD Social History Household Members none Living Arrangements Apartment/Condo Number of Floors (Floors) One Floor Number of Stairs To Enter/Railing? no steps to enter Home Environment Standard Height Toilet,Tub/ Shower Home Equipment Straight Cane,Grab Bars In Shower M2 PT-IP Current Condition Start: 08/18/23 13:58 Freq: NEEDED Status: Active Protocol: Document 08/18/23 12:09 AB (Rec: 08/18/23 14:10 AB [email or web address]) Physical Therapy Current Condition Current Condition Evaluation Date 08/18/23 Treatment Diagnosis COVID; generalized weakness Onset Date 08/18/23 M3 PT-IP Subjective Start: 08/18/23 13:58 Freq: NEEDED Status: Active Protocol: Document 08/18/23 12:09 AB (Rec: 08/18/23 14:10 AB [email or web address]) Subjective Physical Therapy Visit Type Type Initial Evaluation Visit Start Time 12:09 Visit Stop Time 12:38 Total Visit Minutes 29 Number of FREELANCE PROGRAMMER/APP DEVELOPER Visits 0 Physical Therapy Visit Comments Patient Comments agreeable to do PT Therapy Pain Assessment Pain Present Pain Present Denied Pain M4 PT-IP Mobility and Gait Start: 08/18/23 13:58 Freq: NEEDED Status: Active Protocol: Document 08/18/23 12:09 AB (Rec: 08/18/23 14:10 AB [email or web address]) PT-Bed Mobility Assessment Supine to Sit Supine to Sit Standby Assistance PT-Transfer Assessment Sit to and From Stand Sit to and from Stand Contact Guard Assistance,1 Person Assistance,Use of Upper Extremities Equipment Transfer Assistive Device Gait Belt,Front Wheeled Walker Orthotic/Prosthetic Devices or Brace: No Transfers Transfer Destination Chair Transfer Technique ambulated Transfer Ability Level of Assist Minimal Assistance,1 Person Assistance,Use of Upper Extremities Comments Mobility Comments pt supine in bed. O2 sat at RA 94%. pt with confusion. completed supine to sit SBA and cues. able to sit on EO bSBA. completed sit to stand CGA and ambulated in room using FWW min A ~ 35 ft with ( +) LOB x 1 requiring min A for recovery. presents with dragging antalgic gait with increase lateral lean to the R . pt agreed to sit up on the chair. positioned pt on the chair. call light and table placed within reach. set up lunch tray for pt. Gait Assessment Gait Gait Assistance Required: Minimum Assistance Distance (Feet) 35 Able to Maintain Weight Bearing Status Yes During Gait Assistive Devices Assistive Device Gait Belt,Front Wheeled Walker Orthotic/Prosthetic Devices or Brace: No Gait Deviations General Gait Pattern Antalgic,Decreased Stride Length,Decreased Feet Clearance,Step-to Gait Factors Limiting Gait Function Factors Limiting Gait Function Decreased Activity Tolerance, Decreased Strength,Difficulty Following Directions,Limited Range of Motion,Poor Balance, Poor Safety Awareness PT-Balance Assessment Sitting Balance and Reactions Static Sitting Balance Ability Good Dynamic Sitting Balance Ability Good Standing Balance and Reactions Static Standing Balance Ability Fair Dynamic Standing Balance Ability Fair Device Used FWW M5 PT-IP Objective Assessments Start: 08/18/23 13:58 Freq: NEEDED Status: Active Protocol: Document 08/18/23 12:09 AB (Rec: 08/18/23 14:10 AB [email or web address]) Orientation Orientation/Cognition Level of Alertness Alert Orientation Name,Place,Situation Language Function Ability No Deficits Noted Safety Awareness Decreased Safety Awareness Memory Description Short Term Impaired Comments with slight confusion Gross Range of Motion Lower Extremity ROM Assessment Within Functional Limits Strength Lower Extremity Strength Hip 4-/5 Knee 4-/5 Sensation Assessment Sensation Gross Sensation WNL Muscle Tone Muscle Tone WNL Yes M6 PT-IP Treatment Start: 08/18/23 13:58 Freq: NEEDED Status: Active Protocol: Document 08/18/23 12:09 AB (Rec: 08/18/23 14:10 AB [email or web address]) Physical Therapy Treatment Education Education Provided Safety M7 PT-IP Assessment and Plan Start: 08/18/23 13:58 Freq: NEEDED Status: Active Protocol: Document 08/18/23 12:09 AB (Rec: 08/18/23 14:10 AB [id number]) PT Summary Assessment and Plan Potential Rehabilitation Potential Fair Status of Condition at Evaluation Evolving Summary Impairments Pain,ROM,Strength,Balance, Coordination,Sensation,Tone, Cognition,Bed Mobility, Transfers,Gait,Activity Tolerance Assessment Summary pt found to have AMS and brought to the ED by EMS. Pt found to have COVID and admitted to the hospital for observation. pt continues to present with confusion affecting safety awareness and mobility independence. Pt was independent with mobility and ambulation without use of AD prior to hospitalization but currently requiring SBA for bed mobility, CGA for sit to stand but requires min A for ambulation using FWW with (+) LOB requiring min A for steadiness. pt lives alone and will need assistance if pt goes home. D/C plan: SNF vs home with 24/7 and HHPT. Goals Bed Mobility Goal Independent Transfer Goal Independent,Front Wheeled Walker Gait Goal Independent,Front Wheel Walker Gait Distance 150 Other Goals improve transfers and ambulation without AD 250 ft SBA Days to Meet Goals 10 Frequency of Treatment Frequency Of Treatment Once a Day Treatment Plan Physical Therapy Treatment Plan Bed Mobility Training,Transfer Training,Gait Training, Therapeutic Exercise,Balance Retraining,Discharge Planning, Hot or Cold Pack,Neuromuscular Re-ed,Coordination Retraining Precautions Other Precautions falls; COVID Recommendations To Nursing Amount of Assist Needed 1 Person Assist Discharge Recommendations PT Discharge Recommendations Home with 21/06 Assist Available,Home Health,SNF Rehab,Home vs SNF Equipment Needed for Home Before FWW: if pt goes home and not Discharge safe without AD Transportation Needs at Discharge Private Vehicle,Wheelchair/ Cabulance
--- NOTE | 2023-08-18 14:07 | P.HP_ITS ---
History of Present Illness History of Present Illness Date Patient Seen: 08/18/23 Time Patient Seen: 11:50 Chief complaint: Weakness Narrative: 73 y/o F brought in since she was found with ams and lethargic per overnight provider. She was slow to respond but no hx of fall or focal weakness or cough or sob or cp. Mentation improved with IV fluids. Pt was found to have low grade fever and tachycardia and positive covid test but no infoltrate in cxr. Her work up including CT head and neck negative. Her u/a and lactic acid/procalcitonin are negative as well. there was no hypotension or hypoxia. fever and tachycardia and AMS improved in the Ed. Her mentation has improved but she is weak. PT admitted initially by overnight provider. Today patient complains of 10 days of sinus pressure with drainage, unclear as to the onset of her symptoms. She was a 1 person assist with PT and could not recommend discharge home. Will continue supportive care. [facility] Family History Mother Heart disease Hypertension Stroke Social History household members: none Smoking Status: Never smoker alcohol intake: never Meds Home Medications and Allergies Home Medications Medication Instructions Recorded Confirmed Type No Known Home Medications 08/18/23 08/18/23 History Allergies Allergy/AdvReac Type Severity Reaction Status Date / Time No Known Drug Allergies Allergy Verified 08/18/23 00:00 Review of Systems Review of Systems Narrative: All other systems reviewed with the patient and are negative unless otherwise stated. Exam Vital Signs (past 8 hours): - 08/18/23 10:00 08/18/23 12:01 08/18/23 09:00 Temperature 99.7 F H Pulse Rate 93 H Pulse Rate [Orthostatic Lying] 90 Pulse Rate [Orthostatic Sitting] 94 H Pulse Rate [Orthostatic Standing] 88 Respiratory Rate 18 Blood Pressure 118/82 Blood Pressure [Orthostatic Lying] 148/79 H Blood Pressure [Orthostatic Sitting] 158/78 H Blood Pressure [Orthostatic Standing] 156/82 H Pulse Oximetry 93 96 Oxygen Delivery Method Room Air Oxygen Flow Rate 0 08/18/23 13:00 08/18/23 13:57 Temperature 99.0 F Pulse Rate 90 Pulse Rate [Orthostatic Lying] Pulse Rate [Orthostatic Sitting] Pulse Rate [Orthostatic Standing] Respiratory Rate 17 Blood Pressure 148/79 H Blood Pressure [Orthostatic Lying] Blood Pressure [Orthostatic Sitting] Blood Pressure [Orthostatic Standing] Pulse Oximetry 95 95 Oxygen Delivery Method Room Air Oxygen Flow Rate 0 0 Oxygen Delivery Method Room Air Oxygen Flow Rate 0 Narrative Exam Narrative: General:? Patient is well developed and well nourished, in no distress at this time. HEENT:? Normocephalic, atraumatic, extraocular muscles intact, oral pharynx is clear and mucous membranes are moist. + frontal sinus tenderness Neck: supple and symmetric, trachea is midline, no cervical adenopathy. Chest:? Normal AP diameter and contour without kyphoscoliosis, no tachypnea, equal chest rise bilaterally. Lungs:? CTA b/l no wheezing rhonchi or rales. Cardio:?RRR no m/r/g. Abdomen: S NT ND. Musculoskeletal:? Muscle strength and tone are equal within normal limits, no deformity. Extremities: No edema or joint effusions. No cyanosis or clubbing. Skin:? Pale,? Warm to touch,dry and intact without rashes, ulcerations or petechiae.? Neuro:? Alert and orientated x3,? sensation to touch intact in all extremities, no gross deficits noted of cranial nerves. Psych:? Patient has a well-kept appearance, appropriate affect, mental status attitude thought context and judgment are appropriate for age. Objective Labs 08/18/23 07:32 08/18/23 07:32 Labs: Laboratory Results - last 24 hr 08/17/23 08/17/23 08/17/23 21:01 21:10 21:10 WBC 6.1 RBC 3.52 L Hgb 11.6 L Hct 33.1 L MCV 93.9 MCH 32.8 MCHC 34.9 RDW 13.6 Plt Count 133 L Neut % (Auto) 88.1 H Lymph % (Auto) 3.0 L [place] % (Auto) 8.4 Eos % (Auto) 0.0 L Baso % (Auto) 0.5 Neut # (Auto) 5400 Lymph # (Auto) 200 L [place] # (Auto) 500 Eos # (Auto) 0 Baso # (Auto) 0 ABG pH 7.52 H ABG pCO2 30.2 L ABG pO2 84 ABG HCO3 25 ABG Total CO2 26 ABG O2 Saturation 97 ABG Base Excess 2.0 FiO2 21 Sodium 132 L Potassium 3.6 Chloride 100 Carbon Dioxide 21 L BUN 18 H Creatinine 0.68 Estimated GFR > 60 BUN/Creatinine Ratio 26.5 H Glucose 179 H Lactate Calcium 9.4 Total Bilirubin 0.5 AST 30 ALT 18 Alkaline Phosphatase 63 Total Creatine Kinase 69 Troponin I < 0.012 Total Protein 8.2 Albumin 4.3 Globulin 3.9 Albumin/Globulin Ratio 1.1 Procalcitonin 0.05 Urine Color Urine Appearance Urine pH Ur Specific [place] Urine Protein Urine Glucose (UA) Urine Ketones Urine Occult Blood Urine Nitrate Urine Bilirubin Urine Urobilinogen Ur Leukocyte Esterase Urine RBC Urine WBC Ur Squamous Epith Cells Amorphous Sediment Urine Bacteria Ur Culture Indicated? U Opiates 300ng/mL cut Ur Oxycodone Screen Urine Methadone Screen Ur Barbiturates Screen U Tricyclic Antidepress Ur Phencyclidine Scrn Ur Amphetamines Screen U Methamphetamines Scrn Ur MDMA Scrn (Ecstasy) U Benzodiazepines Scrn Urine Cocaine Screen U Marijuana (THC) Screen Chlamy pneumoniae PCR Adenovirus (PCR) B. pertussis DNA (PCR) B.parapertussis DNA PCR Coronavirus OC43 (PCR) Coronavirus HKU1 (PCR) Coronavirus 229E (PCR) SARS-CoV-2 (PCR) Coronavirus NL63 (PCR) Human Metapneumovir PCR Influenza Type A (PCR) Influenza Type B (PCR) M. pneumoniae (PCR) Parainfluenza 1 (PCR) Parainfluenza 2 (PCR) Parainfluenza 3 (PCR) Parainfluenza 4 (PCR) RSV (PCR) Entero/Rhino (PCR) 08/17/23 08/17/23 08/17/23 21:10 21:12 21:12 WBC RBC Hgb Hct MCV MCH MCHC RDW Plt Count Neut % (Auto) Lymph % (Auto) [place] % (Auto) Eos % (Auto) Baso % (Auto) Neut # (Auto) Lymph # (Auto) [place] # (Auto) Eos # (Auto) Baso # (Auto) ABG pH ABG pCO2 ABG pO2 ABG HCO3 ABG Total CO2 ABG O2 Saturation ABG Base Excess FiO2 Sodium Potassium Chloride Carbon Dioxide BUN Creatinine Estimated GFR BUN/Creatinine Ratio Glucose Lactate 1.1 Calcium Total Bilirubin AST ALT Alkaline Phosphatase Total Creatine Kinase Troponin I Total Protein Albumin Globulin Albumin/Globulin Ratio Procalcitonin Urine Color Yellow Urine Appearance Clear Urine pH 7.5 Ur Specific [place] 1.020 Urine Protein Negative Urine Glucose (UA) Negative Urine Ketones 1+ H Urine Occult Blood 1+ H Urine Nitrate Negative Urine Bilirubin Negative Urine Urobilinogen 1.0 Ur Leukocyte Esterase Negative Urine RBC 5-10/hpf H Urine WBC 0-1/hpf Ur Squamous Epith Cells 0-1 /hpf Amorphous Sediment 2+ Urine Bacteria Occasional (0-1) Ur Culture Indicated? Cult not indicated U Opiates 300ng/mL cut Negative Ur Oxycodone Screen Negative Urine Methadone Screen Negative Ur Barbiturates Screen Negative U Tricyclic Antidepress Negative Ur Phencyclidine Scrn Negative Ur Amphetamines Screen Negative U Methamphetamines Scrn Negative Ur MDMA Scrn (Ecstasy) Negative U Benzodiazepines Scrn Negative Urine Cocaine Screen Negative U Marijuana (THC) Screen Negative Chlamy pneumoniae PCR Adenovirus (PCR) B. pertussis DNA (PCR) B.parapertussis DNA PCR Coronavirus OC43 (PCR) Coronavirus HKU1 (PCR) Coronavirus 229E (PCR) SARS-CoV-2 (PCR) Coronavirus NL63 (PCR) Human Metapneumovir PCR Influenza Type A (PCR) Influenza Type B (PCR) M. pneumoniae (PCR) Parainfluenza 1 (PCR) Parainfluenza 2 (PCR) Parainfluenza 3 (PCR) Parainfluenza 4 (PCR) RSV (PCR) Entero/Rhino (PCR) 08/17/23 08/18/23 08/18/23 21:15 07:32 07:32 WBC 4.2 L RBC 3.08 L Hgb 10.0 L Hct 28.8 L MCV 93.6 MCH 32.6 MCHC 34.8 RDW 13.4 Plt Count 103 L Neut % (Auto) 82.9 H Lymph % (Auto) 5.2 L [place] % (Auto) 11.6 Eos % (Auto) 0.0 L Baso % (Auto) 0.3 Neut # (Auto) 3500 Lymph # (Auto) 200 L [place] # (Auto) 500 Eos # (Auto) 0 Baso # (Auto) 0 ABG pH ABG pCO2 ABG pO2 ABG HCO3 ABG Total CO2 ABG O2 Saturation ABG Base Excess FiO2 Sodium 131 L Potassium 3.4 Chloride 104 Carbon Dioxide 21 L BUN 10 Creatinine 0.54 Estimated GFR > 60 BUN/Creatinine Ratio 18.5 Glucose 142 H Lactate Calcium 8.7 Total Bilirubin AST ALT Alkaline Phosphatase Total Creatine Kinase Troponin I Total Protein Albumin Globulin Albumin/Globulin Ratio Procalcitonin Urine Color Urine Appearance Urine pH Ur Specific [place] Urine Protein Urine Glucose (UA) Urine Ketones Urine Occult Blood Urine Nitrate Urine Bilirubin Urine Urobilinogen Ur Leukocyte Esterase Urine RBC Urine WBC Ur Squamous Epith Cells Amorphous Sediment Urine Bacteria Ur Culture Indicated? U Opiates 300ng/mL cut Ur Oxycodone Screen Urine Methadone Screen Ur Barbiturates Screen U Tricyclic Antidepress Ur Phencyclidine Scrn Ur Amphetamines Screen U Methamphetamines Scrn Ur MDMA Scrn (Ecstasy) U Benzodiazepines Scrn Urine Cocaine Screen U Marijuana (THC) Screen Chlamy pneumoniae PCR Not detected Adenovirus (PCR) Not detected B. pertussis DNA (PCR) Not detected B.parapertussis DNA PCR Not detected Coronavirus OC43 (PCR) Not detected Coronavirus HKU1 (PCR) Not detected Coronavirus 229E (PCR) Not detected SARS-CoV-2 (PCR) Detected H Coronavirus NL63 (PCR) Not detected Human Metapneumovir PCR Not detected Influenza Type A (PCR) Not detected Influenza Type B (PCR) Not detected M. pneumoniae (PCR) Not detected Parainfluenza 1 (PCR) Not detected Parainfluenza 2 (PCR) Not detected Parainfluenza 3 (PCR) Not detected Parainfluenza 4 (PCR) Not detected RSV (PCR) Not detected Entero/Rhino (PCR) Not detected Assessment & Plan Assessment & Plan narrative: 73 y/o F with no significant PMH, admitted with improved acute encephalopathy and COVID. #acute metabolic encephalopathy, improved - likely due to COVID with dehydration. Now mentation improved. Given no neurological findings and improvement, will not persue evaluation for TIA as seems highly unlikely. No need for MRI. TTE was ordered and performed given initial concern for possible TIA. Now pending read. - Continue PT/OT, needs 24/7 at home or possible SNF. Will see how she improves with supportive care. #COVID 19 - continue supportive care. Paxlovid not in pharmacy and given unknown onset of symptoms not indicated currently. - as above continue PT/OT. #bacterial sinusitis - with 10 days of sinus pressure will start augmentin for superimposed bacterial sinus infection DVT: HSQ BID Code: Full, surrogate patient elects friend Preston I have utilized all available immediate resources to obtain, update, or review the patient's current medications. Dispo: pending improvement with PT and OT. will likely need to discharge home, possible SNF depending on progress.
[2023-08-18] MEDS: AMOXICILLIN/CLAV 875/125 MG 1 TAB PO ×2 (14:31→21:07)
[2023-08-18] MEDS: ACETAMINOPHEN 325 MG TABLET 650 MG PO ×2 (14:32→21:06)
--- NOTE | 2023-08-18 16:00 | OT.IP.EVAL ---
Occupational Therapy Inpatient Evaluation/Re-Eval M1 PT/OT-IP Prior Functional Status Start: 08/18/23 16:02 Freq: NEEDED Status: Active Protocol: Document 08/18/23 16:02 [facility] (Rec: 08/18/23 16:29 [facility] [id number]) Medical Review Prior Functional Status Medical History Reviewed Yes Communication able to make needs known Mobility and Gait pt stated that she is independent with all mobilities and ambulation without AD Activities of Daily Living and IADL's Pt states was completely independent with all ADL,IADL, drives and take care fo her dog. Social History Household Members none Living Arrangements Apartment/Condo Number of Floors (Floors) One Floor Number of Stairs To Enter/Railing? no steps to enter Home Environment Standard Height Toilet,Tub/ Shower Home Equipment Straight Cane,Grab Bars In Shower M2 OT-IP Current Condition Start: 08/18/23 16:02 Freq: Status: Active Protocol: Document 08/18/23 16:02 [facility] (Rec: 08/18/23 16:29 [facility] [id number]) Occupational Therapy Current Condition Current Condition Evaluation Date 08/18/23 Treatment Diagnosis COVID+, acute encephalopathy Diagnosis Onset Date 08/18/23 M3 OT- IP Subjective and Pain Start: 08/18/23 16:02 Freq: Status: Active Protocol: Document 08/18/23 16:02 [facility] (Rec: 08/18/23 16:29 [facility] [id number]) OT- Subjective Occupational Therapy Visit Type Type Initial Evaluation Visit Start Time 15:20 Visit Stop Time 15:59 Total Visit Minutes 39 Occupational Therapy Visit Comments Patient Comments Pt agreed to get up and needing to use the bathroom. Patient/Caregiver Goals To go home. OT Pain Assessment Pain When Pain Assessed At Rest Pain Present Pain Present Denied Pain M4 OT- IP ADL's Start: 08/18/23 16:02 Freq: Status: Active Protocol: Document 08/18/23 16:02 [facility] (Rec: 08/18/23 16:29 [facility] [id number]) OT [id number] Comments OT Self-Feeding Comments Not at meal time. OT ADL-Grooming General Evaluation Grooming Ability Standby Assistance Areas Needing Assistance Retrieving/Set-up of Grooming Items Comments OT Grooming Comments Pt able to do grooming needs while standing in front of the sink. OT ADL-Oral Care General Eval Oral Care Ability Independent Comments Oral Care Comments Pt having blood while brushing her teeth, pt states has bleeding gums usually. Hospitalist notified. OT ADL-Dressing General Eval Lower Body Dressing Ability Independent,Standby Assistance Comments OT Dressing Comments Pt able to independently arben/ doff her brief and socks and needing cues to sit for safety . OT ADL-Toileting General Evaluation Toileting Ability Standby Assistance Comments OT Toileting Comments Pt vc to back up to the toilet all the way and just needing distant SBA for safety. Pt brief was soaked and able to have pt change out her brief as pt initially not aware and trying to pull up her wet brief and cues to change out her brief.Pt states at homes that she frequently goes to the bathroom at night and able to tell. OT ADL-Bathing Comments OT Bathing Comments NOt performed. Pt may benefit from a shower chair at home to use. M5 OT- IP IADL's Start: 08/18/23 16:02 Freq: Status: Active Protocol: Document 08/18/23 16:02 [facility] (Rec: 08/18/23 16:29 [facility] [id number]) OT-Instrumental Activities of Daily Living Deficits IADL Deficits Identified Deficits Home Safety Awareness Awareness of Need for Assistance at Home Decreased Awareness Ability to Problem Solve Emergency Able to Problem Solve Situations Home Safety Comments Pt able to answer all home safety questions accurately. Medication Management Medication Management Comments Pt states does not take medications. Money Management Money Management Comments Pt needing increased time to recall how she pays her bills. Meal Preparation Meal Preparation Comments Pt is very vague on what she eats during the day, Eggos, bagels, and veggies. Driving Driving Concerns Identified Regarding Safety M6 OT- IP Functional Cognition Start: 08/18/23 16:02 Freq: Status: Active Protocol: Document 08/18/23 16:02 [facility] (Rec: 08/18/23 16:29 [facility] [id number]) Cognitive Factors Limiting Selfcare Function Cognitive Ability Level of Alertness Alert,Confusional State Patient Orientation Name,Age,Birthday,Month,Date, Year,Day of Week,Place, Situation Attention Span Ability Capable of Focused Attention, Unable to Sustain Attention Ability to Follow Commands Able to Follow One Step Commands with Increased Time, Able to Follow One Step Commands with Repetition Memory Description Short Term Impaired,Working Impaired Safety Awareness Underestimates Need for Assistance Problem Solving Ability Needs Assist to Identify Solutions Executive Function Ability Unable to Filter Distractions, Unable to Organize Plans, Unable to Remember Details Cognitive Tests SLUMS Pt scored 6/30 which implies dementia. Pt has COVID and did not sleep well which may be also affecting her cognitive status. Pt just able to answer day of week, year, and state we live in correctly. able to add 3+20, and able to place an X on the triangle and pick out the largest space out of 3 shapes. Pt writing the numbers of the clock on the right hand side of the clock. Cognitive Comments Cognitive Assessment Comments Pt having trouble with word finding, following new directions, needing increased time to process and think at this time. OT- Vision and Hearing OT- Hearing Assessment OT- Hearing Assessment WFL OT- Vision Assessment Visual Acuity Glasses For Reading Occular Pursuits Impaired Horizontal Visual Convergence WFL Visual Doyle WFL Vision Assessment Comments Pt having difficulty to scan her eyes from midline to the left with delayed response. At times pt has a blank gaze. M7 OT- IP Mobility and Balance Start: 08/18/23 16:02 Freq: Status: Active Protocol: Document 08/18/23 16:02 [facility] (Rec: 08/18/23 16:29 [facility] [id number]) OT-Transfer Assessment Sit to and From Stand Sit to and from Stand Standby Assistance Transfers Transfer Ability Standby Assistance,Contact Guard Assistance Technique Transfer Destination Chair,Toilet Transfer Technique Stand Step Pivot Devices Transfer Assistive Devices None Comments Mobility Comments Pt able to stand from the recliner and get to the bathroom with surface to hold to and needing occasional CGA for balance. OT- Balance Assessment Sitting Balance and Reactions Static Sitting Balance Ability Good Dynamic Sitting Balance Ability Good Standing Balance and Reactions Static Standing Balance Ability Fair Dynamic Standing Balance Ability Fair M8 OT- IP Objective Assessments Start: 08/18/23 16:02 Freq: Status: Active Protocol: Document 08/18/23 16:02 [facility] (Rec: 08/18/23 16:29 [facility] [id number]) OT Gross Range of Motion Upper Extremity Range of Motion Assessment Within Functional Limits OT Strength Upper Extremity Strength Assessment Within Functional Limits Comments Strength Comments WFL for age and lifestyle. OT- Coordination Assessment Comments Coordination Comments Increased time after able to comprehand the directions. OT-Muscle Tone Assessment Muscle Tone WNL Yes OT Sensation Assessment Comments Summary Comments Intact for light touch. Decreased proprioception for her wrist and hands. M9 OT- IP Assessment and Plan Start: 08/18/23 16:02 Freq: Status: Active Protocol: Document 08/18/23 16:02 [facility] (Rec: 08/18/23 16:29 [facility] [id number]) OT Summary Assessment and Plan Potential Rehabilitation Potential Good Analytic Complexity at Evaluation Moderate Summary OT Impairments Balance,Functional Cognition, Functional Mobility,Self- Feeding,Grooming,Dressing, Toileting,Bathing,Toilet Transfers,Shower Transfers, Activity Tolerance Progress Towards Goals Progressing Toward Goals,Slow Progress due to Cognition Assessment Summary Pt MOD complexity and main barrier are decreased functional cognition of having difficulty to follow new commands, getting her words out, increased time to process and comprehend information at this time, and also decreased dynamic balance and proprioception with her wrist and hands. Pt scored 6/30 which implies dementia. Pt feel that she is not thinking as well and that she has not slept well. At this time pt is moving with SBA to occasional CGA for balance in the room. Pt would benefit from 24/7 assist for safety and cognitive needs at home versus short skilled rehab. Goals Self-Feeding Goal Independent Grooming Goal Independent Dressing Goal Independent Toileting Goal Independent Bathing Goal Independent Toilet Transfer Goal Independent Shower Transfer Goal Independent Days to Meet Goals 15 Frequency of Treatment Frequency Of Treatment Once a Day Treatment Plan OT Treatment Plan ADL Training,Functional Cognition Training,Functional Mobility,Patient/Family Education,Discharge Planning Discharge Recommendations OT Discharge Recommendations Home with 24/7 Assist Available,Home Health,SNF Rehab Home Equipment Needs shower chair, FWW? Transportation Needs at Discharge Private Vehicle
--- NOTE | 2023-08-18 22:21 | PC.NURSE ---
arrived at 2150 got report from Lynsey Sheth, vitals signs were not done. Care was transferred to ut at 2150.
[2023-08-19 02:00] VITALS: O2SAT 96
[2023-08-19 06:00] VITALS: O2SAT 96
[2023-08-19 06:15] LABS: Add Manual Diff / Slide Review NO; Basophils Absolute Auto 0 /uL (0-100); Basophils Percent Auto 0.6 % (0-2); Eosinophils Absolute Auto 0 /uL (0-450); Eosinophils Percent Auto 0.1 % (2-4); Hematocrit 32.3 % (36-46); Hemoglobin 11.3 g/dL (12.0-16.0); Lymphocytes Absolute Auto 500 /uL (1100-4500); Lymphocytes Percent Auto 13.2 % (25-40); Mean Corpuscular HGB Conc 34.8 % (30-36); Mean Corpuscular Hemoglobin 32.2 PG (26-34); Mean Corpuscular Volume 92.5 fL (80-100); Monocytes Absolute Auto 600 /uL (0-900); Monocytes Percent Auto 14.9 % (3-14); Neutrophils Absolute Auto 2700 /uL (1500-7000); Neutrophils Percent Auto 71.2 % (50-75); Platelet Count 103 X10^3/uL (150-400); Red Cell Distribution Width 13.2 % (11.6-14.8); White Blood Cell Count 3.8 X10^3/uL (4.5-11.0)
[2023-08-19 06:24] LABS: Blood Urea Nitrogen 11 mg/dL (7-17); Carbon Dioxide 26 mmol/L (22-32); Chloride 103 mmol/L (98-107); Estimated Glomerular Filt Rate > 60 mL/min (>60); Glucose 105 mg/dL (80-110); HEMOLYSIS < 15 (0-50); Potassium 3.9 mmol/L (3.4-5.1); Sodium 133 mmol/L (137-145)
[2023-08-19] MEDS: ASPIRIN EC 81 MG TABLET PO (09:19)
[2023-08-19] MEDS: AMOXICILLIN/CLAV 875/125 MG 1 TAB PO (09:19)
[2023-08-19] MEDS: HEPARIN 5,000 UNIT/ML VIAL 5000 UNIT SUBCUT (09:19)
[2023-08-19] MEDS: ACETAMINOPHEN 325 MG TABLET 650 MG PO (09:20)
[2023-08-19 10:00] VITALS: O2SAT 97
--- NOTE | 2023-08-19 10:10 | PT.IPTN ---
Physical Therapy Treatment Note M2 PT-IP Current Condition Start: 08/18/23 13:58 Freq: NEEDED Status: Active Protocol: Document 08/18/23 12:09 AB (Rec: 08/18/23 14:10 AB [id number]) Physical Therapy Current Condition Current Condition Evaluation Date 08/18/23 Treatment Diagnosis COVID; generalized weakness Onset Date 08/18/23 M3 PT-IP Subjective Start: 08/18/23 13:58 Freq: NEEDED Status: Active Protocol: Document 08/19/23 10:41 TS (Rec: 08/19/23 11:05 TS [id number]) Subjective Physical Therapy Visit Type Type Treatment Note Visit Start Time 10:10 Visit Stop Time 10:35 Total Visit Minutes 25 Number of PALEOLOGY TEACHER Visits 1 Physical Therapy Visit Comments Patient Comments Pt found walking in room with no AD, reports she is feeling better and would like to go home and not to a rehab facility. M4 PT-IP Mobility and Gait Start: 08/18/23 13:58 Freq: NEEDED Status: Active Protocol: Document 08/19/23 10:41 TS (Rec: 08/19/23 11:05 TS [id number]) PT-Transfer Assessment Sit to and From Stand Sit to and from Stand Standby Assistance Equipment Transfer Assistive Device None Orthotic/Prosthetic Devices or Brace: No Comments Mobility Comments Sit to stand from bed with no AD SBA with BUE support pushing from knees, has good balance in standing with WBOS. She ambulated in room ~150' SBA with no AD, she has a WBOS and tends to keep eyes on ground, has no buckling or LOB . She peformed head turns with gait to R, L and towards ceiling, had no LOB, did drift slightly to what direction she was looking. She performed sit to stand x5 in ~20secs with single UE support pushing up from bedside chair. She performed balance testing of tandem stance, NBOS with eyes open/closed and SLS. She could hold balance for ~30secs with NBOS eyes clsoed/open, SLS for ~3 secs and tandem stance for ~3 secs before needing hand support. Pt was left sitting EOB, RN notified. Gait Assessment Gait Gait Assistance Required: Standby Assistance Distance (Feet) 150 Able to Maintain Weight Bearing Status Yes During Gait Assistive Devices Assistive Device None,Gait Belt Orthotic/Prosthetic Devices or Brace: No Gait Deviations General Gait Pattern Decreased Stride Length, Decreased Feet Clearance,Wide Based Gait Factors Limiting Gait Function Factors Limiting Gait Function Decreased Activity Tolerance, Decreased Strength,Limited Range of Motion,Poor Balance, Poor Safety Awareness Comments Gait Comments See mobility comments PT-Balance Assessment Sitting Balance and Reactions Static Sitting Balance Ability Normal Dynamic Sitting Balance Ability Good Standing Balance and Reactions Static Standing Balance Ability Good Dynamic Standing Balance Ability Good Functional Assessments Functional Tests 5 Times Sit to Stand ~20 secs Other Functional Tests Performed See mobility comments. M5 PT-IP Objective Assessments Start: 08/18/23 13:58 Freq: NEEDED Status: Active Protocol: Document 08/18/23 12:09 AB (Rec: 08/18/23 14:10 AB [id number]) Orientation Orientation/Cognition Level of Alertness Alert Orientation Name,Place,Situation Language Function Ability No Deficits Noted Safety Awareness Decreased Safety Awareness Memory Description Short Term Impaired Comments with slight confusion Gross Range of Motion Lower Extremity ROM Assessment Within Functional Limits Strength Lower Extremity Strength Hip 4-/5 Knee 4-/5 Sensation Assessment Sensation Gross Sensation WNL Muscle Tone Muscle Tone WNL Yes M6 PT-IP Treatment Start: 08/18/23 13:58 Freq: NEEDED Status: Active Protocol: Document 08/19/23 10:41 TS (Rec: 08/19/23 11:05 TS [id number]) Physical Therapy Treatment Education Education Provided Safety M7 PT-IP Assessment and Plan Start: 08/18/23 13:58 Freq: NEEDED Status: Active Protocol: Document 08/19/23 10:41 TS (Rec: 08/19/23 11:05 TS [id number]) PT Summary Assessment and Plan Potential Rehabilitation Potential Fair Summary Impairments Pain,ROM,Strength,Balance, Coordination,Sensation,Tone, Cognition,Bed Mobility, Transfers,Gait,Activity Tolerance Progress Towards Goals Progressing Toward Goals Assessment Summary Pt is making progress with her mobility this session. She progressed her gait to SBA ~ 150' with no AD, she performed head turns with gait and had no LOB, does tend to slightly drift in what direction she is looking. She performed sit to stand x5 ~20secs with single UE support with counting her own reps. She performed tandem stance, SLS and NBOS with eyes closed/opened. Had difficulty maintaining balance with tandem stance and SLS but could keep balance with use of counter support. She held for ~30secs with NBOS with no support. Pt could follow instructions well and did not appear to have any confusion when speaking with therapist. PT at this time is recommending home w/assist w/ HHPT. Pt would benefit from continued PT for balance improvements. Goals Bed Mobility Goal Independent Transfer Goal Independent,Front Wheeled Walker Gait Goal Independent,Front Wheel Walker Gait Distance 150 Other Goals improve transfers and ambulation without AD 250 ft SBA Days to Meet Goals 10 Frequency of Treatment Frequency Of Treatment Once a Day Treatment Plan Physical Therapy Treatment Plan Bed Mobility Training,Transfer Training,Gait Training, Therapeutic Exercise,Balance Retraining,Discharge Planning, Hot or Cold Pack,Neuromuscular Re-ed,Coordination Retraining Precautions Other Precautions falls; COVID Discharge Recommendations PT Discharge Recommendations Home with Assistance,Home Health,Outpatient PT Transportation Needs at Discharge Private Vehicle,Wheelchair/ Cabulance
[2023-08-19 10:57] VITALS: BP 174/97; PULSE 94; RESP 17; TEMP 36.7; O2SAT 97
--- NOTE | 2023-08-19 11:02 | P.DS_ITS ---
History of Present Illness History of Present Illness Date Patient Seen: 08/19/23 Time Patient Seen: 11:02 Chief complaint: Weakness Narrative: 73 y/o F brought in since she was found with ams and lethargic per overnight provider. She was slow to respond but no hx of fall or focal weakness or cough or sob or cp. Mentation improved with IV fluids. Pt was found to have low grade fever and tachycardia and positive covid test but no infoltrate in cxr. Her work up including CT head and neck negative. Her u/a and lactic acid/procalcitonin are negative as well. there was no hypotension or hypoxia. fever and tachycardia and AMS improved in the Ed. Her mentation has improved but she is weak. PT admitted initially by overnight provider. Today patient complains of 10 days of sinus pressure with drainage, unclear as to the onset of her symptoms. She was a 1 person assist with PT and could not recommend discharge home. Will continue supportive care. Discharge Providers Provider Date of admission: 08/18/23 00:59 Discharge Date: 08/19/23 Consults: 08/18/23 01:09 Consult to Occupational Therapy Evaluate & Treat Comment: Physician Instructions: Evaluate and treat Consult to Physical Therapy Evaluate & Treat Comment: Physician Instructions: Evaluate and Treat Discharge provider: Jonnathan Langston DO Summary Hospital Course Discharge Diagnosis: #acute metabolic encephalopathy, probably in combination with chronic cognitive impairment #COVID 19 #bacterial sinusitis Hospital Course: This is a 73 year old female brought into the ER by EMS reportedly confused. This appeared to improve quickly with fluid administration and she was also noted to have COVID but no respiratory symptoms. Echocardiogram was ordered as possible TIA evaluation, and is still pending at the time of this writing, but given no focal neurological deficits and improvement prior to arrival to the hospital floor evaluation with MRI was not persued. She did complain of 10 days of sinus pressure with frontal tenderness and was started on augmentin for probable superimposed bacterial sinusitis on top of her COVID. She was evaluated by PT and OT. Her SLUMS testing was 6/30 consistent with a severe cognitive impairment. She was able to shower on her own on the day of discharge. After case management evaluation patient was deemed appropriate for discharge home, she was encouraged to look into professor of marketing care options and look for an appropriate DPOA. Time Spent with Patient Time spent: Greater than 30 minutes Exam Vital Signs (past 8 hours): - 09/21/23 06:00 08/19/23 10:00 08/19/23 10:57 Temperature 98.0 F Pulse Rate 94 H Respiratory Rate 17 Blood Pressure 174/97 H Pulse Oximetry 96 97 97 Oxygen Delivery Method Room Air Room Air Oxygen Flow Rate 0 0 Oxygen Delivery Method Room Air Oxygen Flow Rate 0 Narrative Exam Narrative: General:? Patient is well developed and well nourished, in no distress at this time. HEENT:? Normocephalic, atraumatic, extraocular muscles intact, oral pharynx is clear and mucous membranes are moist. + frontal sinus tenderness Neck: supple and symmetric, trachea is midline, no cervical adenopathy. Chest:? Normal AP diameter and contour without kyphoscoliosis, no tachypnea, equal chest rise bilaterally. Lungs:? CTA b/l no wheezing rhonchi or rales. Cardio:?RRR no m/r/g. Abdomen: S NT ND. Musculoskeletal:? Muscle strength and tone are equal within normal limits, no deformity. Extremities: No edema or joint effusions. No cyanosis or clubbing. Skin:? Pale,? Warm to touch,dry and intact without rashes, ulcerations or petechiae.? Neuro:? Alert and orientated x3,? sensation to touch intact in all extremities, no gross deficits noted of cranial nerves. Psych:? Patient has a well-kept appearance, appropriate affect, mental status attitude thought context and judgment are appropriate for age. Objective Labs 08/19/23 05:55 08/19/23 05:55 Labs: Laboratory Results - last 24 hr 08/19/23 08/19/23 05:55 05:55 WBC 3.8 L RBC 3.50 L Hgb 11.3 L Hct 32.3 L MCV 92.5 MCH 32.2 MCHC 34.8 RDW 13.2 Plt Count 103 L Neut % (Auto) 71.2 Lymph % (Auto) 13.2 L Davie % (Auto) 14.9 H Eos % (Auto) 0.1 L Baso % (Auto) 0.6 Neut # (Auto) 2700 Lymph # (Auto) 500 L Davie # (Auto) 600 Eos # (Auto) 0 Baso # (Auto) 0 Sodium 133 L Potassium 3.9 Chloride 103 Carbon Dioxide 26 BUN 11 Creatinine 0.61 Estimated GFR > 60 BUN/Creatinine Ratio 18.0 Glucose 105 Calcium 9.0 PFSH Family History Mother Heart disease Hypertension Stroke Social History household members: none Smoking Status: Never smoker alcohol intake: never Discharge Plan Discharge Plan Patient Disposition: Home Provider Discharge Comment: You were admitted to the hospital with weakness and COVID. You improved with supportive care. Discharge home. Discharge orders & Medications Prescriptions: New amoxicillin-pot clavulanate 875-125 mg tablet 1 tab PO BID 7 Days Qty: 14 0RF Diet/Activity/Treatments Diet: Diet as Tolerated and Regular Activity: As tolerated with no restrictions Visit Report/Discharge Packet Instructions: DI for COVID-19 (Suspected or Confirmed ) Stand Alone Forms: Patient Portal/API, Stroke Signs & Symptoms Discharge Data Attending Provider: Nixon Carranza Admit Date/Time: 08/18/23 00:59 Discharges patient from system. Discharge Date/Time: 08/19/23 14:55
--- NOTE | 2023-08-19 11:43 | CM.DPC ---
DCP Discharge Home Per MD, pt is medically stable for discharge today and awaiting final PT to determine SNF vs home. BRANDY called [facility] and they confirm they submitted auth for SNF but pt borderline for approval as she is not requiring much assist. [facility] wants to confirm pt is agreeable to SNF and that she would have a safe d/c plan home from SNF as she lives alone. BRANDY spoke to pt's good friend Eliza ([phone]) and discussed need for better LTC planning, establishing with PCP and setting up DPOA and Eliza is willing to assist pt and encourage her with these things but also recommends being in contact with pt's good friend Zoey from her small group at [facility] but does not have Pat's number. Per OT, pt scored 6/30 on SLUMS but likely would be a higher score if pt had adequate sleep and not in the hospital setting. Per DIRECTOR DESIGN and RN, pt showered herself independently and ambulated without assist or device and completed multiple sit to stands and does not feel SNF needed at d/c. Pt was able to answer questions appropriately and participate appropriately. Recommend safe d/c home but would benefit from LTC planning. BRANDY updated [facility] on new plan of home today. BRANDY met bedside with pt and explained role and she confirms she still feels a little anxious and also just more confused and strange with COVID but on room air and ambulating well. Pt agreeable to d/c to home today and BRANDY discussed the importance of establishing with PCP, DPOA, and in-home CG supports for even once a week to start. BRANDY provided the brochures for DPOA and list for local PCP and also the private CG list and the purpose behind all. BRANDY also attached sticky notes with reminders for the purpose of the pwk. Pt states she is in agreement with all and would like to establish with PCP in the [facility]. Pt plans to call 2 of her friends for a ride to her apt near the hospital for this afternoon. Pt does not qualify for as she is not homebound status as she is mobilizing well and has no PCP at this time. BRANDY updated RN. Plan: Patient to discharge home today via friend POV and will follow up with DPOA pwk, establishing with PCP, and has in-home resource list. SREEDHAR Estes
[2023-08-19 13:56] VITALS: O2SAT 95
== END 2023-08-19 14:55 | disposition home or self-care (01) ==
LOC: ED 08-18 00:28 → AC 08-18 01:02
PROVIDERS: Internal Medicine; Admitting Provider Hospitalist; Emergency Provider Emergency Medicine; Visit Provider Hospitalist
DX: U07.1 COVID-19 (principal); G93.41 Metabolic encephalopathy; I10 Essential (primary) hypertension; Z86.73 Personal history of transient ischemic attack (TIA), and cerebral infarction without residual deficits
CPT/HCPCS: 36415; 36600; 70450; 71045; 72125; 80048; 80053; 80305; 81001; 82550; 82805; 83605; 84145; 84484; 85025; 87040; 87633; 93005; 93306; 96365; 96367; 96368; 96372; 96375; 97116; 97162; 97166; 97530; 97535; 99284; G0378; J0692; J1644; J2405

== ENCOUNTER → 2023-10-14 16:55 | Outpatient (CLI) | payer MEDICARE, SELFPAY ==
[2023-08-18 02:00] VITALS: BMI 27.3
[2023-10-14 17:49] LABS: Add Manual Diff / Slide Review NO; Basophils Absolute Auto 100 /uL (0-100); Eosinophils Absolute Auto 0 /uL (0-450); Eosinophils Percent Auto 0.3 % (2-4); Hemoglobin 11.5 g/dL (12.0-16.0); Lymphocytes Absolute Auto 1400 /uL (1100-4500); Lymphocytes Percent Auto 25.6 % (25-40); Mean Corpuscular HGB Conc 34.9 % (30-36); Mean Corpuscular Hemoglobin 32.7 PG (26-34); Mean Corpuscular Volume 93.7 fL (80-100); Monocytes Absolute Auto 500 /uL (0-900); Monocytes Percent Auto 9.7 % (3-14); Neutrophils Absolute Auto 3400 /uL (1500-7000); Neutrophils Percent Auto 63.4 % (50-75); Platelet Count 159 X10^3/uL (150-400); Red Blood Cell Count 3.52 X10^6/uL (4.0-5.2); Red Cell Distribution Width 13.5 % (11.6-14.8); White Blood Cell Count 5.3 X10^3/uL (4.5-11.0)
[2023-10-14 18:22] LABS: Alanine Aminotransferase 15 IU/L (<35); Albumin 4.3 g/dL (3.5-5.0); Albumin Globulin Ratio 1.2 (1.0-2.8); Alkaline Phosphatase 48 U/L (38-126); Aspartate Aminotransferase 25 IU/L (14-36); BUN Creatinine Ratio 23.4 (6-22); Bilirubin Total 0.4 mg/dL (0.2-1.3); Blood Urea Nitrogen 15 mg/dL (7-17); Calcium 9.7 mg/dL (8.4-10.2); Carbon Dioxide 26 mmol/L (22-32); Chloride 101 mmol/L (98-107); Estimated Glomerular Filt Rate > 60 mL/min (>60); Globulin 3.6 g/dL (1.7-4.1); Glucose 108 mg/dL (80-110); HEMOLYSIS < 15 (0-50); Sodium 134 mmol/L (137-145); Total Protein 7.9 g/dL (6.3-8.2)
[2023-10-14 18:24] LABS: HEMOLYSIS < 15 (0-50); Iron 58 ug/dL (37-170)
[2023-10-14 18:36] LABS: Percent Iron Saturation 20 % (15-50); Total Iron Binding Capacity 288 ug/dL (265-497); Transferrin 247 mg/dL (206-381)
[2023-10-14 18:50] LABS: TSH w/ Reflex to FT4 1.46 uIU/mL (0.47-4.68)
[2023-10-14 18:52] LABS: Ferritin 46 ng/mL (11-264)
== END ==
PROVIDERS: PCP Student in an Organized Health Care Education/Training Program; Referring Provider Student in an Organized Health Care Education/Training Program; Visit Provider Student in an Organized Health Care Education/Training Program
DX: R41.82 Altered mental status, unspecified (principal); R53.82 Chronic fatigue, unspecified
CPT/HCPCS: 36415; 80053; 82728; 83540; 83550; 84443; 85025

== ENCOUNTER 2023-10-17 17:12 | Emergency (ER) | payer MEDICARE, SELFPAY ==
[2023-08-18 02:00] VITALS: BMI 27.3
[2023-10-17 17:16] VITALS: BP 192/105; PULSE 118; RESP 19; TEMP 36.7; O2SAT 97; BMI 19.0
--- NOTE | 2023-10-17 17:19 | ED_ITS ---
HPI - URI/Sore Throat <Zana Serna PA-C - Last Filed: 10/17/23 18:13> General Chief Complaint: Upper Respiratory Symptoms Stated Complaint: LEFT EAR/THROAT PAIN X1 DAY Time Seen by Provider: 10/17/23 17:16 History of Present Illness HPI Narrative: This is a 73-year-old female presents emergency department due to left ear pain for the last 3 weeks. She denies any fevers, nausea, vomiting, discharge from the ear, or any other concerning signs or symptoms. No jaw pain. States she feels the pain in her left side of the throat as well. Related Data Home Medications Medication Instructions Recorded Confirmed No Known Home Medications 10/14/23 10/14/23 Allergies Allergy/AdvReac Type Severity Reaction Status Date / Time No Known Drug Allergies Allergy Verified 10/14/23 16:02 Review of Systems <Zana Serna PA-C - Last Filed: 10/17/23 18:13> Review of Systems Narrative: GENERAL: Denies chills, fatigue, malaise, fever, sweats. HEENT: Reports left ear pain RESPIRATORY: Denies dyspnea, cough, wheezing, hemoptysis, sputum. CARDIOVASCULAR: Denies chest pain, palpitations, orthopnea, edema, GASTROINTESTINAL: Denies nausea, vomiting, abdominal pain, diarrhea, constipation, melena. : Denies dysuria, frequency, incontinence, hematuria, urinary retention. MUSCULOSKELETAL: denies weakness, joint pain, or bony pain SKIN: Denies rash, skin lesions, or other NEUROLOGIC: Denies weakness, headache, numbness, change in speech, confusion, seizures, incoordination. PSYCHIATRIC: No concerning psychosocial issues. 12 point review of systems is negative except for those stated above Patient History <Zana Serna PA-C - Last Filed: 10/17/23 18:13> Family History Mother Heart disease Hypertension Stroke Social History household members: none Smoking Status: Never smoker alcohol intake: never Smoking Status: Never smoker Substance Use Type: does not use Exam <THEODORA Menendez Last Filed: 10/17/23 18:13> Narrative Exam Narrative: GENERAL: Well-developed patient, in mild distress. HEAD: Atraumatic. Normocephalic. EYES: Pupils equal round and reactive. Extraocular motions intact. No scleral icterus. No injection or drainage. ENT: Nose without bleeding, purulent drainage. Throat without erythema, tonsillar hypertrophy or exudate. Airway patent. Tympanic membrane unremarkable. NECK: Trachea midline. Non tender CARDIOVASCULAR: Regular rate and rhythm without murmurs, gallops, or rubs. RESPIRATORY: Clear to auscultation. Breath sounds equal bilaterally. No wheezes, rales, or rhonchi. GASTROINTESTINAL: Abdomen soft, non-tender, nondistended. EXTREMITIES: No edema or joint tenderness. BACK: Nontender without deformity or crepitance. No flank tenderness. NEURO: AOx3. SKIN: No rash or erythema of visible areas Initial Vital Signs Initial Vital Signs: Vital Signs Temperature 98.1 F 10/17/23 17:16 Pulse Rate 118 H 10/17/23 17:16 Respiratory Rate 19 10/17/23 17:16 Blood Pressure 192/105 H 10/17/23 17:16 Pulse Oximetry 97 10/17/23 17:16 Oxygen Delivery Method Room Air 10/17/23 17:16 <Brianna Agustin DO - Last Filed: 10/19/23 07:35> Initial Vital Signs Initial Vital Signs: Vital Signs Temperature 98.1 F 10/17/23 17:16 Pulse Rate 118 H 10/17/23 17:16 Respiratory Rate 19 10/17/23 17:16 Blood Pressure 192/105 H 10/17/23 17:16 Pulse Oximetry 97 10/17/23 17:16 Oxygen Delivery Method Room Air 10/17/23 17:16 Course <Zana Serna PA-C - Last Filed: 10/17/23 18:13> Vital Signs Vital signs: Vital Signs - 8 hr 10/17/23 17:16 Temperature 98.1 F Pulse Rate 118 H Respiratory Rate 19 Blood Pressure 192/105 H Pulse Oximetry 97 Oxygen Delivery Method Room Air <DO Virgil Montez Last Filed: 10/19/23 07:35> Vital Signs Vital signs: Vital Signs - 8 hr 10/17/23 17:16 Temperature 98.1 F Pulse Rate 118 H Respiratory Rate 19 Blood Pressure 192/105 H Pulse Oximetry 97 Oxygen Delivery Method Room Air MDM - URI/Sore Throat <Zana Serna PA-C - Last Filed: 10/17/23 18:13> MDM Narrative Medical decision making narrative: MDM * differential diagnosis includes but not limited to otitis media, otitis externa, perforated TM, cerumen impaction * Prior records reviewed: Patient was seen here 2 months ago due to altered mental status. Responded nicely to simple fluid resuscitation. No evidence of sepsis or pneumonia. She was hospitalized for observation until strength returned. * My lab interpretation: None obtained * My imgaing interpretation: None obtained * Clinical Decision Rules/Scores evaluated: None * Independent discussions with: None ED Course: This is a 73-year-old female presents to to the emergency department for 3 weeks of left ear pain. She states that she was also mild throat pain. On exam her tympanic membrane was completely unremarkable as well as her posterior oropharynx. Suspect some element of Eustachian tube dysfunction. Recommend ibuprofen, Tylenol, and Flonase. Shared Decision Making: Discussed plan with patient who is comfortable with the plan. Social Considerations: None Disposition: Discharged to home Discharge Plan Departure Patient Disposition: Home Clinical Impression: ETD (eustachian tube dysfunction) Instructions: DI for Eustachian Tube Dysfunction-Adult Activity Restrictions/Additional Instructions: Thank you for coming to the [facility] Emergency Department today. As we discussed your tympanic membrane in your left ear was completely unremarkable. There isn't not appear to be any evidence of infection. This may be something called Eustachian tube dysfunction. As we discussed please use ibuprofen, Tylenol, and Flonase to help with your discomfort. I hope you feel better soon. Please follow up with your primary care provider within a week if your symptoms continue. If you do not have a primary care provider please contact the [facility] Resource line at [phone]. They will ask some questions about your medical history and help you get set up with a provider in the community. Prescriptions: No Action No Known Home Medications Referrals: Rox Munoz MD [Primary Care Provider] - Stand Alone Forms: Patient Portal/API ED Sign-out <Brianna Agustin DO - Last Filed: 10/19/23 07:35> Cosign ED Attending Luis A Attestation: I was immediately available in the department for consultation.
[2023-10-17 18:22] VITALS: BP 157/95; PULSE 104; RESP 16; O2SAT 99
== END 2023-10-17 18:22 | disposition home or self-care (01) ==
PROVIDERS: Emergency Provider Physician Assistant Medical; PCP Student in an Organized Health Care Education/Training Program
DX: H69.82 Other specified disorders of Eustachian tube, left ear (principal)
CPT/HCPCS: 99281; 99282

== ENCOUNTER 2023-11-18 07:10 | Emergency (ER) | payer MEDICARE, SELFPAY ==
[2023-08-18 02:00] VITALS: BMI 27.3
[2023-11-18] VITALS (7 sets, daily range): BP systolic 152–173; BP diastolic 79–86; PULSE 89–99; RESP 14; TEMP 36.8; O2SAT 96–100; BMI 18.1
--- NOTE | 2023-11-18 07:38 | ED.GENADULT ---
HPI - General Adult General Chief complaint: Urogenital-Female Stated complaint: uti Time Seen by Provider: 11/18/23 07:14 Source: patient Mode of arrival: Ambulatory History of Present Illness HPI narrative: 73-year-old female who is here for evaluation of potential urinary tract infection. She states that last evening she felt like she had a hard time going to the bathroom. No fevers or vomiting. This morning she gave us a urine sample here in the ER and she states that it was not very much but she did not have any burning or dysuria. States that several days ago she was constipated but that seems to have resolved. No back pain. Related Data Home Medications Medication Instructions Recorded Confirmed No Known Home Medications 10/14/23 10/14/23 Allergies Allergy/AdvReac Type Severity Reaction Status Date / Time No Known Drug Allergies Allergy Verified 11/18/23 07:30 Review of Systems Constitutional Constitutional: Reports system reviewed and no additional complaints, except as documented Gastrointestinal Gastrointestinal: Reports system reviewed and no additional complaints, except as documented Genitourinary Genitourinary: Reports system reviewed and no additional complaints, except as documented Patient History Family History Mother Heart disease Hypertension Stroke Social History household members: none Smoking Status: Never smoker alcohol intake: never Smoking Status: Never smoker tobacco type: cigarettes alcohol intake frequency: 0-2 drinks per day Substance Use Type: does not use Exam Initial Vital Signs Initial Vital Signs: Vital Signs Temperature 98.2 F 11/18/23 07:15 Pulse Rate 89 11/18/23 07:15 Respiratory Rate 14 11/18/23 07:15 Blood Pressure 160/83 H 11/18/23 07:15 Pulse Oximetry 97 11/18/23 07:15 Oxygen Delivery Method Room Air 11/18/23 07:15 Const General: cooperative and comfortable GI Inspection: normal to inspection and non-distended Palpation: tender (Suprapubic region) Neuro General: patient alert, patient awake and moves all extremities Course Orders Ordered: ED Orders 11/18/23 07:20 Urine Culture Stat Urine Microscopic Stat 11/18/23 07:51 CT abdomen pelvis w con Stat 11/18/23 08:01 Complete Blood Count AUTO DIFF Stat Comprehensive Metabolic Panel Stat Lipase Stat Vital Signs Vital signs: Vital Signs - 8 hr 11/18/23 07:15 11/18/23 07:22 11/18/23 07:22 Temperature 98.2 F Pulse Rate 89 99 H Respiratory Rate 14 Blood Pressure 160/83 H 160/83 H Pulse Oximetry 97 96 Oxygen Delivery Method Room Air 11/18/23 07:30 11/18/23 07:30 11/18/23 08:00 Temperature Pulse Rate 89 89 Respiratory Rate Blood Pressure 155/79 H Pulse Oximetry 97 98 Oxygen Delivery Method Room Air Room Air 11/18/23 08:00 11/18/23 08:25 11/18/23 08:25 Temperature Pulse Rate 95 H Respiratory Rate Blood Pressure 152/83 H 160/86 H Pulse Oximetry 98 Oxygen Delivery Method 11/18/23 08:30 11/18/23 08:30 Temperature Pulse Rate 94 H Respiratory Rate Blood Pressure 158/84 H Pulse Oximetry 98 Oxygen Delivery Method Room Air Medical Decision Making Lab Data Lab results reviewed: Yes I reviewed the patient's lab results. 11/18/23 08:01 11/18/23 08:01 Labs: Lab Results 11/18/23 11/18/23 Range/Units 07:20 08:01 WBC 3.5 L (4.5-11.0) X10^3/uL RBC 3.49 L (4.0-5.2) X10^6/uL Hgb 11.4 L (12.0-16.0) g/dL Hct 32.4 L (36-46) % MCV 93.0 (80-100) fL MCH 32.8 (26-34) PG MCHC 35.2 (30-36) % RDW 13.7 (11.6-14.8) % Plt Count 136 L (150-400) X10^3/uL Neut % (Auto) 66.7 (50-75) % Lymph % (Auto) 21.5 L (25-40) % [place] % (Auto) 9.9 (3-14) % Eos % (Auto) 0.4 L (2-4) % Baso % (Auto) 1.5 (0-2) % Neut # (Auto) 2300 (6475-5432) /uL Lymph # (Auto) 800 L (3336-3385) /uL [place] # (Auto) 300 (0-900) /uL Eos # (Auto) 0 (0-450) /uL Baso # (Auto) 100 (0-100) /uL Sodium 131 L (137-145) mmol/L Potassium 3.7 (3.4-5.1) mmol/L Chloride 101 (98-107) mmol/L Carbon Dioxide 23 (22-32) mmol/L BUN 13 (7-17) mg/dL Creatinine 0.54 (0.52-1.04) mg/dL Estimated GFR > 60 (>60) mL/min BUN/Creatinine Ratio 24.1 H (6-22) Glucose 117 H (80-110) mg/dL Calcium 9.6 (8.4-10.2) mg/dL Total Bilirubin 0.7 (0.2-1.3) mg/dL AST 27 (14-36) IU/L ALT 17 (<35) IU/L Alkaline Phosphatase 50 (38-126) U/L Total Protein 7.7 (6.3-8.2) g/dL Albumin 4.2 (3.5-5.0) g/dL Globulin 3.5 (1.7-4.1) g/dL Albumin/Globulin Ratio 1.2 (1.0-2.8) Lipase 45 (23-300) U/L Urine RBC 1-5/hpf (0-5/HPF) Urine WBC 5-10/hpf H (0-5/HPF) Ur Squamous Epith Cells 5-10 /hpf H (0-5/HPF) Urine Bacteria Few (2-10) H (None) Ur Culture Indicated? Specimen cultured Urine Dip Bedside Urine Glucose Negative Bedside Urine Bilirubin - Negative Bedside Urine Ketone - Negative Urine Specific [place] 1.030 Bedside Urine Occult Blood +/- Bedside Urine pH 6.0 Bedside Urine Protein - Negative Bedside Urine Urobilinogen - Negative Bedside Urine Nitrite - Negative Bedside Urine Leukocytes - Negative Esterase Point of care testing: Urine Dip Bedside Urine Glucose Negative Bedside Urine Bilirubin - Negative Bedside Urine Ketone - Negative Urine Specific [place] 1.030 Bedside Urine Occult Blood +/- Bedside Urine pH 6.0 Bedside Urine Protein - Negative Bedside Urine Urobilinogen - Negative Bedside Urine Nitrite - Negative Bedside Urine Leukocytes - Negative Esterase Imaging Data CT scan - abdomen/pelvis: Radiologist's Impression: PROCEDURE: CT ABDOMEN PELVIS W CON INDICATIONS: LLQ and lower abd pain TECHNIQUE: After the administration of intravenous contrast, axial sections acquired from the lung bases to the pubic symphysis. Coronal and sagittal reformats were performed. For radiation dose reduction, the following was used: automated exposure control, adjustment of mA and/or kV according to patient size. COMPARISON: None. FINDINGS: Image quality: Diagnostic. Lung bases: Bibasilar atelectasis. Small hiatal hernia. Heart: Heart size is normal. Coronary atherosclerotic vascular calcifications are noted. ABDOMEN: Liver: No solid mass. Gallbladder: No radiopaque gallstones or wall thickening. Biliary ducts: No biliary dilation. Pancreas: No ductal dilation. Spleen: Size is within normal limits. Adrenal Glands: No adrenal nodules. Kidneys and Ureters: No hydronephrosis. No solid mass. No complex renal cystic lesion which requires follow up. Stomach and Bowel: Visualized stomach and proximal small bowel appear unremarkable. Moderate amount of fecal material seen scattered throughout the colon. There is mild circumferential thickening of the sigmoid colon slightly more pronounced than expected for degree of decompression without significant surrounding inflammatory changes. A few additional fluid-filled loops of adjacent small bowel without wall thickening. Peritoneum: No abnormal intraperitoneal fluid. No free air. Ventral Wall: No hernia. Abdominal Nodes: No retroperitoneal or mesenteric adenopathy by size criteria. Vessels: Aorta and inferior vena cava are normal in size. PELVIS: Pelvic Organs: Unremarkable. Bladder: Unremarkable. Pelvic Nodes: No enlarged lymph nodes. Miscellaneous: No inguinal hernias are seen. Bones: No aggressive osseous abnormality. Diffuse osteopenia with multilevel chronic appearing compression fractures of the lumbar spine most pronounced at T11, L2, L3, and L5. Moderate multilevel lumbar spondylosis. No acute fracture seen. IMPRESSION: 1. Mild circumferential bowel wall thickening of the sigmoid colon which appears slightly more pronounced than expected for degree of distension. Additional adjacent loops of fluid-filled small bowel. Findings are nonspecific but may represent infectious or inflammatory enteritis/colitis. Otherwise, no acute abnormalities identified to explain patient's left lower quadrant abdominal pain. 2. Diffuse osteopenia with multilevel chronic appearing compression fractures of the lumbar spine most pronounced at T11, L2, L3, and L5. 3. Atherosclerosis. 4. Small hiatal hernia. MDM Narrative Medical decision making narrative: Patient initially arrived with concerns about a urinary tract infection however her urinalysis today is not consistent with this. There was a urine culture pending at the time of her discharge. She was informed of this and if something grows we will treat with antibiotics. She understands she may receive a phone call for this. She is not retaining urine. Her labs are unremarkable. CT scan shows moderate amount of stool. She states she has not had a bowel movement in several days. We discussed out potentially constipation could be causing her symptoms today. We discussed a good bowel regimen and it sounds like Metamucil has worked for her in the past. She also has findings of colitis. No indication for antibiotics today for this. This also could be the result of her constipation and potentially what is causing her presenting symptoms today. I discuss this with her. She was given strict return precautions. She expressed understanding and agreement plan Discharge Plan Departure Patient Disposition: Home Clinical Impression: Colitis, Constipation Instructions: DI for Constipation, DI for Colitis Activity Restrictions/Additional Instructions: Continue to take all of your medications as directed. I recommend that you start taking Metamucil like we discussed. Maybe taking a half a dose of this would be appropriate given your response to this medication in the past. You can also consider taking a stool softener. These can be purchased [id number] at any pharmacy. Return to the emergency department for new or worsening symptoms. There was a urine culture pending at the time of your discharge and we will contact you if we need to start you on any antibiotics based on the results of this. Prescriptions: No Action No Known Home Medications Referrals: Rox Munoz MD [Primary Care Provider] - Stand Alone Forms: Patient Portal/API
--- NOTE | 2023-11-18 07:51 | DI.CT.S_ITS ---
PROCEDURE: CT ABDOMEN PELVIS W CON INDICATIONS: LLQ and lower abd pain TECHNIQUE: After the administration of intravenous contrast, axial sections acquired from the lung bases to the pubic symphysis. Coronal and sagittal reformats were performed. For radiation dose reduction, the following was used: automated exposure control, adjustment of mA and/or kV according to patient size. COMPARISON: None. FINDINGS: Image quality: Diagnostic. Lung bases: Bibasilar atelectasis. Small hiatal hernia. Heart: Heart size is normal. Coronary atherosclerotic vascular calcifications are noted. ABDOMEN: Liver: No solid mass. Gallbladder: No radiopaque gallstones or wall thickening. Biliary ducts: No biliary dilation. Pancreas: No ductal dilation. Spleen: Size is within normal limits. Adrenal Glands: No adrenal nodules. Kidneys and Ureters: No hydronephrosis. No solid mass. No complex renal cystic lesion which requires follow up. Stomach and Bowel: Visualized stomach and proximal small bowel appear unremarkable. Moderate amount of fecal material seen scattered throughout the colon. There is mild circumferential thickening of the sigmoid colon slightly more pronounced than expected for degree of decompression without significant surrounding inflammatory changes. A few additional fluid-filled loops of adjacent small bowel without wall thickening. Peritoneum: No abnormal intraperitoneal fluid. No free air. Ventral Wall: No hernia. Abdominal Nodes: No retroperitoneal or mesenteric adenopathy by size criteria. Vessels: Aorta and inferior vena cava are normal in size. PELVIS: Pelvic Organs: Unremarkable. Bladder: Unremarkable. Pelvic Nodes: No enlarged lymph nodes. Miscellaneous: No inguinal hernias are seen. Bones: No aggressive osseous abnormality. Diffuse osteopenia with multilevel chronic appearing compression fractures of the lumbar spine most pronounced at T11, L2, L3, and L5. Moderate multilevel lumbar spondylosis. No acute fracture seen. IMPRESSION: 1. Mild circumferential bowel wall thickening of the sigmoid colon which appears slightly more pronounced than expected for degree of distension. Additional adjacent loops of fluid-filled small bowel. Findings are nonspecific but may represent infectious or inflammatory enteritis/colitis. Otherwise, no acute abnormalities identified to explain patient's left lower quadrant abdominal pain. 2. Diffuse osteopenia with multilevel chronic appearing compression fractures of the lumbar spine most pronounced at T11, L2, L3, and L5. 3. Atherosclerosis. 4. Small hiatal hernia. Dictated by: Pablo Abdul M.D. on 11/18/2023 at 8:30 Approved by: Pablo Abdul M.D. on 11/18/2023 at 8:44
[2023-11-18 08:10] LABS: Bacteria Urine Few (2-10); Culture Indicated Urine Specimen Cultured; RBC Urine 1-5/HPF (0-5/HPF); Squamous Epithelial Cell Urine 5-10 /HPF (0-5/HPF); WBC Urine 5-10/HPF (0-5/HPF)
[2023-11-18 08:14] LABS: Add Manual Diff / Slide Review NO; Basophils Absolute Auto 100 /uL (0-100); Basophils Percent Auto 1.5 % (0-2); Eosinophils Absolute Auto 0 /uL (0-450); Eosinophils Percent Auto 0.4 % (2-4); Hematocrit 32.4 % (36-46); Hemoglobin 11.4 g/dL (12.0-16.0); Lymphocytes Absolute Auto 800 /uL (1100-4500); Lymphocytes Percent Auto 21.5 % (25-40); Mean Corpuscular HGB Conc 35.2 % (30-36); Mean Corpuscular Hemoglobin 32.8 PG (26-34); Monocytes Absolute Auto 300 /uL (0-900); Monocytes Percent Auto 9.9 % (3-14); Neutrophils Absolute Auto 2300 /uL (1500-7000); Neutrophils Percent Auto 66.7 % (50-75); Platelet Count 136 X10^3/uL (150-400); Red Blood Cell Count 3.49 X10^6/uL (4.0-5.2); Red Cell Distribution Width 13.7 % (11.6-14.8); White Blood Cell Count 3.5 X10^3/uL (4.5-11.0)
[2023-11-18 08:30] LABS: Alanine Aminotransferase 17 IU/L (<35); Albumin 4.2 g/dL (3.5-5.0); Albumin Globulin Ratio 1.2 (1.0-2.8); Alkaline Phosphatase 50 U/L (38-126); Aspartate Aminotransferase 27 IU/L (14-36); BUN Creatinine Ratio 24.1 (6-22); Bilirubin Total 0.7 mg/dL (0.2-1.3); Blood Urea Nitrogen 13 mg/dL (7-17); Calcium 9.6 mg/dL (8.4-10.2); Carbon Dioxide 23 mmol/L (22-32); Chloride 101 mmol/L (98-107); Estimated Glomerular Filt Rate > 60 mL/min (>60); Globulin 3.5 g/dL (1.7-4.1); Glucose 117 mg/dL (80-110); HEMOLYSIS < 15 (0-50); Lipase 45 U/L (23-300); Potassium 3.7 mmol/L (3.4-5.1); Sodium 131 mmol/L (137-145); Total Protein 7.7 g/dL (6.3-8.2)
--- NOTE | 2023-11-18 11:35 | CM.SWNOTE ---
ED [employer] follow up note [employer] receives follow up consult from RN who reports concerns for patient's weight loss, confusion and patient stating she is fearful of her neighbor. [employer] reviews EMR, [employer] submits referral via phone for [employer] Viet Crowder to follow up with patient in person and for regular community outreach. Per EMR patient has scheduled PCP appt later this afternoon. [employer] calls [facility] clinic to confirm patient's appt scheduled today for 1330. Plan: [employer] to f/u with patient. Patient to f/u with PCP this afternoon. YULY Granda
== END 2023-11-18 09:35 | disposition home or self-care (01) ==
PROVIDERS: Emergency Provider Emergency Medicine; PCP Student in an Organized Health Care Education/Training Program
DX: K52.9 Noninfective gastroenteritis and colitis, unspecified (principal); K59.00 Constipation, unspecified; R10.32 Left lower quadrant pain
CPT/HCPCS: 36415; 51798; 74177; 80053; 81003; 81015; 83690; 85025; 87086; 99283; 99284; Q9967

== ENCOUNTER → 2023-12-02 15:43 | Outpatient (CLI) | payer MEDICARE, MEDICAID, SELFPAY ==
[2023-08-18 02:00] VITALS: BMI 27.3
[2023-12-02 17:11] LABS: Add Manual Diff / Slide Review NO; Basophils Absolute Auto 0 /uL (0-100); Basophils Percent Auto 0.8 % (0-2); Eosinophils Absolute Auto 0 /uL (0-450); Eosinophils Percent Auto 0.4 % (2-4); Hematocrit 34.2 % (36-46); Lymphocytes Absolute Auto 900 /uL (1100-4500); Lymphocytes Percent Auto 18.2 % (25-40); Mean Corpuscular HGB Conc 35.1 % (30-36); Mean Corpuscular Hemoglobin 32.8 PG (26-34); Mean Corpuscular Volume 93.2 fL (80-100); Monocytes Absolute Auto 400 /uL (0-900); Monocytes Percent Auto 7.9 % (3-14); Neutrophils Absolute Auto 3600 /uL (1500-7000); Neutrophils Percent Auto 72.7 % (50-75); Platelet Count 196 X10^3/uL (150-400); Red Blood Cell Count 3.67 X10^6/uL (4.0-5.2); Red Cell Distribution Width 13.4 % (11.6-14.8)
[2023-12-02 17:26] LABS: Hemoglobin A1C% w Est Avg Glu 5.6 % (4.0-6.0)
[2023-12-02 17:34] LABS: Alanine Aminotransferase 19 IU/L (<35); Albumin 4.7 g/dL (3.5-5.0); Albumin Globulin Ratio 1.2 (1.0-2.8); Alkaline Phosphatase 51 U/L (38-126); BUN Creatinine Ratio 25.8 (6-22); Bilirubin Total 0.6 mg/dL (0.2-1.3); Bilirubin Unconjugated 0.3 mg/dL (0.0-1.1); Blood Urea Nitrogen 17 mg/dL (7-17); C-Reactive Protein Quant < 0.5 mg/dL (<1.0); Calcium 10.1 mg/dL (8.4-10.2); Carbon Dioxide 25 mmol/L (22-32); Chloride 95 mmol/L (98-107); Estimated Glomerular Filt Rate > 60 mL/min (>60); Glucose 127 mg/dL (80-110); Sodium 129 mmol/L (137-145); Total Protein 8.7 g/dL (6.3-8.2)
[2023-12-02 17:52] LABS: Erythrocyte Sedimentation Rate 29 MM/HR (0-20)
[2023-12-02 19:41] LABS: HIV 1 & 2 Ab/Ag 4th Gen Combo NEGATIVE (NEGATIVE)
[2023-12-03 15:34] LABS: Aspartate Aminotransferase 37 IU/L (14-36); HEMOLYSIS 16 (0-50)
== END ==
LOC: LAB 15:44
PROVIDERS: PCP Student in an Organized Health Care Education/Training Program; Referring Provider Student in an Organized Health Care Education/Training Program; Visit Provider Student in an Organized Health Care Education/Training Program
DX: R63.4 Abnormal weight loss (principal)
CPT/HCPCS: 36415; 80053; 80076; 83036; 85025; 85651; 86140; 87389

== ENCOUNTER → 2023-12-02 16:16 | Outpatient (CLI) | payer MEDICARE, MEDICAID, SELFPAY ==
[2023-08-18 02:00] VITALS: BMI 27.3
--- NOTE | 2023-12-02 16:18 | DI.CT.S_ITS ---
PROCEDURE: CT HEAD/BRAIN WO CON INDICATIONS: Unexplained weight loss TECHNIQUE: Noncontrast 4.5 mm thick angled axial sections acquired from the foramen magnum to the vertex, with coronal and sagittal reformats. For radiation dose reduction, the following was used: automated exposure control, adjustment of mA and/or kV according to patient size. COMPARISON: [facility], CT, CT HEAD/BRAIN WO CON, 08/17/2023, 21:10. FINDINGS: Image quality: There is artifact associated with the metallic hardware. Artifact from the metallic hardware is reduced by metal reconstruction algorithm. This examination is somewhat limited by quantum mottle artifact. CSF spaces: Basal cisterns are patent. No extra-axial fluid collections. The ventricles are symmetric in size and shape. Brain: No intracranial bleeds or masses. There is cerebral volume loss for age, with resultant ventricular and sulcal prominence. There are periventricular and deep white matter chronic small vessel ischemic changes. There is intracranial internal carotid artery atherosclerosis. Skull and face: Calvarium and visualized facial bones appear intact, without suspicious lesions. Sinuses: Visualized sinuses and mastoids are clear. IMPRESSION: Limited noncontrast head CT, without a cause of the patient's presenting history identified. No significant change from the prior. Dictated by: Art Atkins M.D. on 12/02/2023 at 16:13 Approved by: Art Atkins M.D. on 12/02/2023 at 16:14
--- NOTE | 2023-12-02 16:18 | DI.RAD.S_ITS ---
PROCEDURE: XR CHEST 2V INDICATIONS: unexplained weight loss TECHNIQUE: 2 views of the chest were acquired. COMPARISON: [facility], CR, XR CHEST 1V, 08/17/2023, 21:02. FINDINGS: Surgical changes and devices: None. Lungs and pleura: Lungs are clear. No pleural effusions or pneumothorax. Mediastinum: Mediastinal contours are normal. Heart size is normal. Bones and chest wall: No suspicious bony abnormalities. Soft tissues appear unremarkable. IMPRESSION: No acute process. Dictated by: Akua Reeves M.D. on 12/02/2023 at 16:53 Approved by: Akua Reeves M.D. on 12/02/2023 at 16:53
--- NOTE | 2023-12-02 16:18 | DI.RAD.S_ITS ---
PROCEDURE: XR ABDOMEN MIN 2V INDICATIONS: unexplained weight loss TECHNIQUE: 2 views of the abdomen were acquired. COMPARISON: None. FINDINGS: Surgical changes and devices: ORIF of the right hip. Bowel: No pneumoperitoneum. The bowel gas pattern is normal. Soft tissues: No masses; visualized solid organ contours appear normal in size. No suspicious abdominal calcifications. Bones: No suspicious bony abnormalities. IMPRESSION: Non-obstructive bowel gas pattern. Dictated by: Akua Reeves M.D. on 12/02/2023 at 16:53 Approved by: Akua Reeves M.D. on 12/02/2023 at 16:54
== END ==
LOC: CT 16:17
PROVIDERS: PCP Student in an Organized Health Care Education/Training Program; Referring Provider Student in an Organized Health Care Education/Training Program; Visit Provider Student in an Organized Health Care Education/Training Program
DX: I65.29 Occlusion and stenosis of unspecified carotid artery; R63.4 Abnormal weight loss
CPT/HCPCS: 36415; 70450; 71046; 74019; 80053; 80076; 83036; 85025; 85651; 86140; 87389

== ENCOUNTER 2023-12-11 12:54 | Inpatient (IN) | payer MEDICARE, MEDICAID, SELFPAY ==
[2023-08-18 02:00] VITALS: BMI 27.3
[2023-12-11] VITALS (69 sets, daily range): BP systolic 63–148; BP diastolic 38–103; PULSE 73–96; RESP 14–33; TEMP 35.9–37.1; O2SAT 92–99; BMI 17.2
--- NOTE | 2023-12-11 12:56 | DI.CT.S_ITS ---
PROCEDURE: CT HEAD/BRAIN WO CON INDICATIONS: found down, alt mental status, + cspine tenderness TECHNIQUE: Noncontrast 4.5 mm thick angled axial sections acquired from the foramen magnum to the vertex, with coronal and sagittal reformats. For radiation dose reduction, the following was used: automated exposure control, adjustment of mA and/or kV according to patient size. COMPARISON: [facility], CT, CT HEAD/BRAIN WO CON, 12/02/2023, 16:24. FINDINGS: Image quality: Diagnostic. CSF spaces: Basal cisterns are patent. No extra-axial fluid collections. The ventricles are symmetric in size and shape. Brain: No intracranial bleeds or masses. There is cerebral volume loss for age, with resultant ventricular and sulcal prominence. There are periventricular and deep white matter chronic small vessel ischemic changes. There is intracranial internal carotid artery atherosclerosis. Skull and face: Calvarium and visualized facial bones appear intact, without suspicious lesions. Sinuses: Visualized sinuses and mastoids are clear. IMPRESSION: 1. No CT evidence of acute intracranial abnormalities. 2. No significant changes from previous study. Dictated by: Sunday Roth M.D. on 12/11/2023 at 13:57 Approved by: Sunday Roth M.D. on 12/11/2023 at 13:58
--- NOTE | 2023-12-11 12:56 | DI.CT.S_ITS ---
PROCEDURE: CT CERVICAL SPINE WO CON INDICATIONS: found down, alt mental status, + cspine tenderness TECHNIQUE: Noncontrast 3 mm thick sections acquired from the skull base to the T4 level. Sagittal and coronal reformats were then constructed. For radiation dose reduction, the following was used: automated exposure control, adjustment of mA and/or kV according to patient size. COMPARISON: [facility], CT, CT CERVICAL SPINE WO CON, 08/17/2023, 21:10. FINDINGS: Image quality: Excellent. Bones: No fractures or dislocations. Degenerative endplate changes are noted in mid to lower cervical spine most notably involving C5-6 level with dorsal disc osteophyte complex formation and bilateral facet hypertrophic changes causing mild central canal stenosis and bilateral neural foraminal narrowing. Visualized superior ribs are intact. Soft tissues: Prevertebral soft tissues are normal in thickness. No paravertebral hematomas. No apical pneumothoraces. IMPRESSION: No acute cervical spine fracture or dislocation. Degenerative disc disease in mid to lower cervical spine as above. Dictated by: Sunday Roth M.D. on 12/11/2023 at 13:58 Approved by: Sunday Roth M.D. on 12/11/2023 at 14:00
--- NOTE | 2023-12-11 12:56 | DI.RAD.S_ITS ---
PROCEDURE: XR CHEST 1V INDICATIONS: found down, alt mental status, + cspine tenderness TECHNIQUE: One view of the chest was acquired. COMPARISON: [facility], CR, XR CHEST 2V, 12/02/2023, 16:29. FINDINGS: Surgical changes and devices: None. Lungs and pleura: Lungs are clear. No pleural effusions or pneumothorax. Mediastinum: Mediastinal contours appear normal. Heart size is normal. Bones and chest wall: No suspicious bony lesions. Overlying soft tissues appear unremarkable. IMPRESSION: No acute cardiopulmonary abnormality is seen. Dictated by: Mitesh May M.D. on 12/11/2023 at 12:21 Approved by: Mitesh May M.D. on 12/11/2023 at 12:23
--- NOTE | 2023-12-11 13:10 | ED_ITS ---
HPI - Fall General Chief Complaint: Fall Stated Complaint: Fall/Alt mental Status/Px in neck Time Seen by Provider: 12/11/23 13:09 Source: patient, EMS, RN notes reviewed and old records reviewed Mode of arrival: EMS Limitations: no limitations History of Present Illness HPI Narrative: 73-year-old female no current medications possible dementia. Patient lives independently at home was last seen yesterday reportedly in the afternoon. Patient states she thinks she rolled out of bed but does not recall exactly what happened. She states she thinks around midnight she fell. She was stuck part way underneath her bed at her head. Neighbors had gotten into the house to check on her and found her on the floor. Patient was on the floor on her side had underneath the bed per EMS. She is some bruising on her chin which appears she may have hit her head on the bed while trying to lift it. They state vitals were normal EN route glucose was 181. They did find a bottle of mirtazapine in the house patient states she took about 4 tablets without in the past and does not take it any longer. She states no daily medications, no tobacco, no alcohol no illicit. Patient states no headache. Does describe some neck pain little bit of movement. Denies any back pain. Denies any chest pain, no shortness of breath she denies any nausea or vomiting. States she has been constipated last had a bowel movement in the last 24 hours. Denies any dysuria urgency or frequency. Denies any new weakness or one-sided weakness or lateralizing changes. Patient has bruising on her chin and had complaint of some left hip pain but has good range of motion. She states no pain with movement. Denies any numbness or tingling. She has a primary care locally but does not recall her name, Dr. Jordan. is her PCP. Related Data Previous Rx's Medication Instructions Recorded mirtazapine 15 mg tablet 15 mg PO BEDTIME #30 tabs 11/18/23 Allergies Allergy/AdvReac Type Severity Reaction Status Date / Time No Known Drug Allergies Allergy Verified 12/10/23 14:42 Review of Systems Review of Systems ROS Unobtainable: All systems reviewed & are unremarkable except as noted in HPI and below Patient History Family History Mother Heart disease Hypertension Stroke Social History household members: none Smoking Status: Never smoker alcohol intake: never Smoking Status: Never smoker tobacco type: cigarettes alcohol intake frequency: 0-2 drinks per day Substance Use Type: does not use Exam Narrative Exam Narrative: GEN: C-collar prior to arrival. Patient appears in mild distress. HEAD: No evidence of trauma, no raccoon/Cotto sign. NECK: Nontender, painless range of motion, trachea midline Positive for Nexus criteria, there has been line tenderness, no distracting injury, altered mental status, neuro deficit, recent EtOH. EYES: PERRLA, EOMI ENT: External inspection normal for some ecchymosis over the left jaw, no hematoma nontender, trachea is midline, TM's are normal no hemotypanum, Nares are clear, no septal hematoma, no dental or oral injury, airway is normal and with normal occlusion, No bony tenderness RESP: Chest is nontender and has symmetric movement, no ecchymosis, breath sounds are normal no crackles, wheezes or rales CVS: Heart sounds are normal, no murmur noted, No JVD. ABG/GI: Nontender, soft, normal bowel sounds, no distention, no organomegaly, pelvic rock is negative NEURO: Oriented AOx3, neuro is grossly intact, sensation and motor is normal all 4 extremities moving, cranial nerves II through XII are intact, GCS is 15 PSYCH: Normal mood and affect SKIN: Intact, warm and dry, no crepitus and without decubitus BACK: No CVA tenderness, no vertebral tenderness, no step-off's, no crepitus EXT: Atraumatic, hips are nontender, no pedal edema, normal color and temperature, normal range of motion of extremities with normal tendon exam, 2+ pulses in all four extremities Initial Vital Signs Initial Vital Signs: Vital Signs Temperature 98.0 F 12/11/23 12:58 Pulse Rate 91 H 12/11/23 12:58 Respiratory Rate 24 12/11/23 12:58 Blood Pressure 139/79 12/11/23 12:58 Pulse Oximetry 98 12/11/23 12:58 Oxygen Delivery Method Room Air 12/11/23 12:58 Course Orders Ordered: ED Orders 12/11/23 12:55 EKG-12 Lead Stat 12/11/23 12:56 CT cervical spine wo con Stat CT head/brain wo con Stat XR chest 1V Stat 12/11/23 13:09 Acetaminophen Stat Complete Blood Count AUTO DIFF Stat Comprehensive Metabolic Panel Stat Ethanol (ETOH) Stat Lactate (Lactic Acid) Stat PTT Partial Thromboplastin Manny Stat Procalcitonin Stat Prolactin Stat Prothrombin Time INR Stat Salicylate Stat Thyroid Stimulating Hormone Stat Troponin & CK Cardiac Panel Stat 12/11/23 13:10 XR pelvis 1-2V Stat 12/11/23 13:25 Ammonia (NH3) Stat 12/11/23 13:28 Blood Culture Stat 12/11/23 13:48 Covid-19 + FLU A/B + RSV - PCR Stat 12/11/23 14:16 Urinalysis and Microscopic Stat Urine Culture Stat Urine Drug Screen, Rapid Stat 12/11/23 15:10 Trop I [Troponin I] Stat 12/11/23 15:21 EKG-12 Lead Routine Discontinued Medications Aspirin (Aspirin 81 Mg Chew Tab) 324 mg PO NOW ONE Stop: 12/11/23 14:08 Last Admin: 12/11/23 14:34 Dose: 324 mg Documented By: LETITIA Sodium Chloride (Normal Saline 0.9%) 1,000 mls @ 1,000 mls/hr IV BOLUS ONE Stop: 12/11/23 14:42 Last Infusion: 12/11/23 15:15 Dose: Infused Documented By: Admin: 12/11/23 13:54 Dose: 1,000 mls/hr Documented By: LETITIA Sodium Chloride (Normal Saline 0.9%) 1,000 mls @ 1,000 mls/hr IV BOLUS ONE Stop: 12/11/23 17:00 Last Infusion: 12/11/23 17:16 Dose: Infused Documented By: Admin: 12/11/23 16:05 Dose: 1,000 mls/hr Documented By: LETITIA Vital Signs Vital signs: Vital Signs - 8 hr 12/11/23 12:58 12/11/23 13:00 12/11/23 13:02 Temperature 98.0 F Pulse Rate 91 H 94 H Respiratory Rate 24 25 H 23 Blood Pressure 139/79 Pulse Oximetry 98 Oxygen Delivery Method Room Air 12/11/23 13:02 12/11/23 13:15 12/11/23 13:44 Temperature Pulse Rate 89 85 Respiratory Rate 19 19 Blood Pressure 139/79 Pulse Oximetry 92 Oxygen Delivery Method Room Air 12/11/23 13:45 12/11/23 13:48 12/11/23 13:48 Temperature Pulse Rate 87 88 Respiratory Rate 19 24 Blood Pressure 100/62 Pulse Oximetry 98 Oxygen Delivery Method 12/11/23 13:58 12/11/23 13:58 12/11/23 13:59 Temperature Pulse Rate 84 Respiratory Rate 17 Blood Pressure 104/64 Pulse Oximetry 98 Oxygen Delivery Method Room Air 12/11/23 14:00 12/11/23 14:01 12/11/23 14:01 Temperature Pulse Rate 88 91 H Respiratory Rate 25 H 22 Blood Pressure 122/82 Pulse Oximetry 98 98 Oxygen Delivery Method Room Air 12/11/23 14:11 12/11/23 14:11 12/11/23 14:15 Temperature Pulse Rate 86 87 Respiratory Rate 22 28 H Blood Pressure 134/65 Pulse Oximetry 99 98 Oxygen Delivery Method 12/11/23 14:20 12/11/23 14:20 12/11/23 14:30 Temperature 96.6 F L Pulse Rate 85 Respiratory Rate 18 Blood Pressure 130/68 Pulse Oximetry 99 Oxygen Delivery Method 12/11/23 14:31 12/11/23 14:33 12/11/23 14:33 Temperature 96.6 F L 96.6 F L Pulse Rate 87 93 H Respiratory Rate 24 Blood Pressure 146/78 H Pulse Oximetry 98 98 Oxygen Delivery Method Room Air 12/11/23 14:41 12/11/23 14:41 12/11/23 14:45 Temperature 97.0 F L 97.0 F L Pulse Rate 94 H 87 Respiratory Rate 33 H 21 Blood Pressure 140/77 Pulse Oximetry 98 Oxygen Delivery Method 12/11/23 14:50 12/11/23 14:50 12/11/23 15:00 Temperature 97.2 F L Pulse Rate 92 H Respiratory Rate 28 H Blood Pressure 146/93 H 142/78 H Pulse Oximetry Oxygen Delivery Method 12/11/23 15:00 12/11/23 15:10 12/11/23 15:10 Temperature 97.3 F L 97.3 F L Pulse Rate 84 83 Respiratory Rate 16 26 H Blood Pressure 148/77 H Pulse Oximetry 99 Oxygen Delivery Method 12/11/23 15:15 12/11/23 15:30 12/11/23 15:31 Temperature 97.3 F L 97.5 F L Pulse Rate 84 75 Respiratory Rate 24 16 Blood Pressure 81/50 L Pulse Oximetry 99 98 Oxygen Delivery Method Room Air 12/11/23 15:31 12/11/23 15:33 12/11/23 15:33 Temperature 97.5 F L 97.5 F L Pulse Rate 75 83 Respiratory Rate 15 20 Blood Pressure 108/69 Pulse Oximetry 98 99 Oxygen Delivery Method 12/11/23 15:40 12/11/23 15:40 12/11/23 15:42 Temperature 97.5 F L Pulse Rate 77 Respiratory Rate 16 Blood Pressure 83/51 L 116/69 Pulse Oximetry 99 Oxygen Delivery Method 12/11/23 15:42 12/11/23 15:45 12/11/23 15:45 Temperature 97.7 F 97.7 F Pulse Rate 84 81 Respiratory Rate 21 19 Blood Pressure 115/71 Pulse Oximetry 99 99 Oxygen Delivery Method 12/11/23 15:50 12/11/23 15:50 12/11/23 15:55 Temperature 97.9 F 97.9 F Pulse Rate 84 78 Respiratory Rate 20 15 Blood Pressure 133/77 Pulse Oximetry 99 98 Oxygen Delivery Method Room Air Room Air 12/11/23 16:00 12/11/23 16:00 12/11/23 16:04 Temperature 97.9 F 97.5 F L Pulse Rate 75 86 Respiratory Rate 16 14 Blood Pressure 78/50 L Pulse Oximetry 97 99 Oxygen Delivery Method 12/11/23 16:04 12/11/23 16:05 12/11/23 16:10 Temperature 97.7 F 97.9 F Pulse Rate 85 87 Respiratory Rate 26 H 18 Blood Pressure 114/68 Pulse Oximetry 99 98 Oxygen Delivery Method 12/11/23 16:10 12/11/23 16:15 12/11/23 16:20 Temperature 97.7 F Pulse Rate 87 Respiratory Rate Blood Pressure 141/71 H 134/74 Pulse Oximetry 98 Oxygen Delivery Method 12/11/23 16:20 12/11/23 16:25 12/11/23 16:30 Temperature 98.1 F 98.1 F 98.1 F Pulse Rate 85 84 80 Respiratory Rate 24 18 15 Blood Pressure Pulse Oximetry 99 98 98 Oxygen Delivery Method 12/11/23 16:30 12/11/23 16:35 12/11/23 16:40 Temperature 98.1 F Pulse Rate 78 Respiratory Rate 16 Blood Pressure 119/65 114/59 L Pulse Oximetry 98 Oxygen Delivery Method 12/11/23 16:40 12/11/23 16:45 12/11/23 16:50 Temperature 97.9 F 97.9 F Pulse Rate 77 75 Respiratory Rate 14 15 Blood Pressure 84/51 L Pulse Oximetry 98 99 Oxygen Delivery Method 12/11/23 16:50 12/11/23 16:55 12/11/23 16:56 Temperature 98.1 F 98.1 F 98.1 F Pulse Rate 73 85 86 Respiratory Rate 15 20 19 Blood Pressure Pulse Oximetry 99 97 97 Oxygen Delivery Method 12/11/23 16:56 12/11/23 17:00 12/11/23 17:05 Temperature 98.1 F 98.1 F Pulse Rate 83 Respiratory Rate 18 Blood Pressure 132/74 Pulse Oximetry Oxygen Delivery Method 12/11/23 17:10 12/11/23 17:10 12/11/23 17:15 Temperature 98.1 F 98.1 F Pulse Rate 78 85 Respiratory Rate 15 18 Blood Pressure 101/55 L Pulse Oximetry 97 Oxygen Delivery Method 12/11/23 17:20 12/11/23 17:20 12/11/23 17:25 Temperature 98.1 F 98.2 F Pulse Rate 78 74 Respiratory Rate 16 16 Blood Pressure 98/55 L Pulse Oximetry 97 97 Oxygen Delivery Method 12/11/23 17:30 12/11/23 17:30 12/11/23 17:31 Temperature 98.2 F Pulse Rate 74 Respiratory Rate 16 Blood Pressure 63/38 L 64/39 L Pulse Oximetry 98 Oxygen Delivery Method 12/11/23 17:31 12/11/23 17:32 12/11/23 17:32 Temperature 98.2 F 98.2 F Pulse Rate 74 84 Respiratory Rate 17 19 Blood Pressure 80/55 L Pulse Oximetry 98 98 Oxygen Delivery Method 12/11/23 17:34 12/11/23 17:34 12/11/23 17:35 Temperature 98.2 F 98.2 F Pulse Rate 85 83 Respiratory Rate 18 20 Blood Pressure 120/69 Pulse Oximetry 96 96 Oxygen Delivery Method Room Air 12/11/23 17:35 Temperature Pulse Rate Respiratory Rate Blood Pressure 115/67 Pulse Oximetry Oxygen Delivery Method MDM - Fall Lab Data 12/11/23 13:09 12/11/23 13:09 Labs: Lab Results 12/11/23 12/11/23 12/11/23 Range/Units 13:09 13:25 13:48 WBC 11.4 H (4.5-11.0) X10^3/uL RBC 4.34 (4.0-5.2) X10^6/uL Hgb 13.9 (12.0-16.0) g/dL Hct 40.8 (36-46) % MCV 94.0 (80-100) fL MCH 32.0 (26-34) PG MCHC 34.1 (30-36) % RDW 13.5 (11.6-14.8) % Plt Count 152 (150-400) X10^3/uL Neut % (Auto) 92.2 H (50-75) % Lymph % (Auto) 3.0 L (25-40) % Mccone % (Auto) 4.5 (3-14) % Eos % (Auto) 0.0 L (2-4) % Baso % (Auto) 0.3 (0-2) % Neut # (Auto) 86106 H (6112-3464) /uL Lymph # (Auto) 300 L (9657-0148) /uL Mccone # (Auto) 500 (0-900) /uL Eos # (Auto) 0 (0-450) /uL Baso # (Auto) 0 (0-100) /uL PT 13.4 H (9.4-12.5) SECONDS INR 1.2 (0.9-1.3) APTT 27 (25.1-36.5) SECONDS Sodium 130 L (137-145) mmol/L Potassium 3.1 L (3.4-5.1) mmol/L Chloride 96 L (98-107) mmol/L Carbon Dioxide 25 (22-32) mmol/L BUN 20 H (7-17) mg/dL Creatinine 0.46 L (0.52-1.04) mg/dL Estimated GFR > 60 (>60) mL/min BUN/Creatinine Ratio 43.5 H (6-22) Glucose 167 H (80-110) mg/dL Lactate 1.7 (0.7-2.1) mmol/L Calcium 9.8 (8.4-10.2) mg/dL Total Bilirubin 1.6 H (0.2-1.3) mg/dL AST 83 H (14-36) IU/L ALT 42 H (<35) IU/L Alkaline Phosphatase 58 (38-126) U/L Ammonia < 9 L (9-30) umol/L Total Creatine Kinase 2240 H (30-135) U/L Troponin I 0.129 H* (0.01-0.034) ng/mL Total Protein 8.9 H (6.3-8.2) g/dL Albumin 4.4 (3.5-5.0) g/dL Globulin 4.5 H (1.7-4.1) g/dL Albumin/Globulin Ratio 1.0 (1.0-2.8) Procalcitonin 0.13 (<0.5) ng/mL TSH 0.859 (0.47-4.68) uIU/mL Prolactin 24.8 H (3.0-18.6) ng/mL Urine Color Urine Appearance Urine pH (4.5-8.0) Ur Specific [place] (1.000-1.035) Urine Protein (Negative) Urine Glucose (UA) (Negative) g/dL Urine Ketones (NEGATIVE) Urine Occult Blood (Negative) Urine Nitrate (Negative) Urine Bilirubin (NEGATIVE) Urine Urobilinogen (0.2) E.U./dL Ur Leukocyte Esterase (NEGATIVE) Urine RBC (0-5/HPF) Urine WBC (0-5/HPF) Ur Squamous Epith Cells (0-5/HPF) Amorphous Sediment Urine Bacteria (None) Ur Culture Indicated? Salicylates < 1.0 (<20) mg/dL U Opiates 300ng/mL cut (Negative) Ur Oxycodone Screen (Negative) Urine Methadone Screen (Negative) Acetaminophen < 10 (10-30) ug/mL Ur Barbiturates Screen (Negative) U Tricyclic Antidepress (Negative) Ur Phencyclidine Scrn (Negative) Ur Amphetamines Screen (Negative) U Methamphetamines Scrn (Negative) Ur MDMA Scrn (Ecstasy) (Negative) U Benzodiazepines Scrn (Negative) Urine Cocaine Screen (Negative) U Marijuana (THC) Screen (Negative) Urine Specific [place] (Normal) Ethyl Alcohol < 10 ( - 10) mg/dL Ur Creatinine (Normal) SARS-CoV-2 (PCR) Negative (Negative) Influenza A (RT-PCR) Flu a negative (NEGATIVE) Influenza B (RT-PCR) Flu b negative (NEGATIVE) RSV (PCR) Negative (Negative) 12/11/23 12/11/23 12/11/23 Range/Units 14:16 14:16 15:10 WBC (4.5-11.0) X10^3/uL RBC (4.0-5.2) X10^6/uL Hgb (12.0-16.0) g/dL Hct (36-46) % MCV (80-100) fL MCH (26-34) PG MCHC (30-36) % RDW (11.6-14.8) % Plt Count (150-400) X10^3/uL Neut % (Auto) (50-75) % Lymph % (Auto) (25-40) % Mccone % (Auto) (3-14) % Eos % (Auto) (2-4) % Baso % (Auto) (0-2) % Neut # (Auto) (7864-9051) /uL Lymph # (Auto) (2708-9395) /uL Mccone # (Auto) (0-900) /uL Eos # (Auto) (0-450) /uL Baso # (Auto) (0-100) /uL PT (9.4-12.5) SECONDS INR (0.9-1.3) APTT (25.1-36.5) SECONDS Sodium (137-145) mmol/L Potassium (3.4-5.1) mmol/L Chloride (98-107) mmol/L Carbon Dioxide (22-32) mmol/L BUN (7-17) mg/dL Creatinine (0.52-1.04) mg/dL Estimated GFR (>60) mL/min BUN/Creatinine Ratio (6-22) Glucose (80-110) mg/dL Lactate (0.7-2.1) mmol/L Calcium (8.4-10.2) mg/dL Total Bilirubin (0.2-1.3) mg/dL AST (14-36) IU/L ALT (<35) IU/L Alkaline Phosphatase (38-126) U/L Ammonia (9-30) umol/L Total Creatine Kinase (30-135) U/L Troponin I 0.142 H* (0.01-0.034) ng/mL Total Protein (6.3-8.2) g/dL Albumin (3.5-5.0) g/dL Globulin (1.7-4.1) g/dL Albumin/Globulin Ratio (1.0-2.8) Procalcitonin (<0.5) ng/mL TSH (0.47-4.68) uIU/mL Prolactin (3.0-18.6) ng/mL Urine Color Yellow Urine Appearance Clear Urine pH 5.5 Normal (4.5-8.0) Ur Specific [place] >=1.030 H (1.000-1.035) Urine Protein 2+ H (Negative) Urine Glucose (UA) Trace H (Negative) g/dL Urine Ketones 1+ H (NEGATIVE) Urine Occult Blood 2+ H (Negative) Urine Nitrate Negative (Negative) Urine Bilirubin Negative (NEGATIVE) Urine Urobilinogen 0.2 (0.2) E.U./dL Ur Leukocyte Esterase Negative (NEGATIVE) Urine RBC 1-5/hpf (0-5/HPF) Urine WBC 1-5/hpf (0-5/HPF) Ur Squamous Epith Cells 5-10 /hpf H (0-5/HPF) Amorphous Sediment 1+ Urine Bacteria Occasional (0-1) (None) Ur Culture Indicated? Specimen cultured Salicylates (<20) mg/dL U Opiates 300ng/mL cut Negative (Negative) Ur Oxycodone Screen Negative (Negative) Urine Methadone Screen Negative (Negative) Acetaminophen (10-30) ug/mL Ur Barbiturates Screen Negative (Negative) U Tricyclic Antidepress Negative (Negative) Ur Phencyclidine Scrn Negative (Negative) Ur Amphetamines Screen Negative (Negative) U Methamphetamines Scrn Negative (Negative) Ur MDMA Scrn (Ecstasy) Negative (Negative) U Benzodiazepines Scrn Negative (Negative) Urine Cocaine Screen Negative (Negative) U Marijuana (THC) Screen Negative (Negative) Urine Specific [place] Normal (Normal) Ethyl Alcohol ( - 10) mg/dL Ur Creatinine Normal (Normal) SARS-CoV-2 (PCR) (Negative) Influenza A (RT-PCR) (NEGATIVE) Influenza B (RT-PCR) (NEGATIVE) RSV (PCR) (Negative) Imaging Data CT scan - head: Radiologist's Impression: Elidia Valdez??73??F??1950 ? Allergy/Adv: No Known Drug Allergies (More??) Close Pelvis X-Ray (Signed) Sunday Roth - 12/11/[address] (Signed) Paola Rothng - 12/11/23 Chest X-Ray (Signed) Mitesh May - 12/11/[address] (Signed) Sunday Roth - 12/11/[address] (Signed) Juancho Atkinssse - 12/02/23 Chest X-Ray (Signed) Akua Reeves - 12/02/23 Abdomen X-Ray (Signed) Akua Reeves - 12/02/23 Abdomen/Pelvis CT (Signed) ChantellPablo - 11/18/23 Echocardiogram Ultrasound (Signed) Katarina Che - 08/18/23 Telemetry Strips 08/18/[address] (Signed) Ryley Flores - 08/17/23 Chest X-Ray (Signed) Ryley Flores - 08/17/[address] (Signed) Ryley Flores - 08/17/23 Launch?[place] [address] CT Scan Report Signed Patient: Elidia Valdez MR#: [id number] : 1950 Acct:[id number] Age/Sex: 73 / F Date of Service: 12/11/23 Loc: Accession Number: [id number] Procedure: CT head/brain wo con Ordering Provider: Brianna Agustin D.O. PROCEDURE: CT HEAD/BRAIN WO CON INDICATIONS: found down, alt mental status, + cspine tenderness TECHNIQUE: Noncontrast 4.5 mm thick angled axial sections acquired from the foramen magnum to the vertex, with coronal and sagittal reformats. For radiation dose reduction, the following was used: automated exposure control, adjustment of mA and/or kV according to patient size. COMPARISON: [facility], CT, CT HEAD/BRAIN WO CON, 12/02/2023, 16:24. FINDINGS: Image quality: Diagnostic. CSF spaces: Basal cisterns are patent. No extra-axial fluid collections. The ventricles are symmetric in size and shape. Brain: No intracranial bleeds or masses. There is cerebral volume loss for age, with resultant ventricular and sulcal prominence. There are periventricular and deep white matter chronic small vessel ischemic changes. There is intracranial internal carotid artery atherosclerosis. Skull and face: Calvarium and visualized facial bones appear intact, without suspicious lesions. Sinuses: Visualized sinuses and mastoids are clear. IMPRESSION: 1. No CT evidence of acute intracranial abnormalities. 2. No significant changes from previous study. Dictated by: Sunday Roth M.D. on 12/11/2023 at 13:57 Approved by: Sunday Roth M.D. on 12/11/2023 at 13:58 CT - cervical spine: Radiologist's Impression: Elidia Valdez??73??F??1950 ? Allergy/Adv: No Known Drug Allergies (More??) Close Pelvis X-Ray (Signed) Sunday Roth - 12/11/[address] (Signed) Sunday Roth - 12/11/23 Chest X-Ray (Signed) Mitesh May - 12/11/[address] (Signed) Sunday Roth - 12/11/[address] (Signed) Art Atkins - 12/02/23 Chest X-Ray (Signed) Akua Reeves - 12/02/23 Abdomen X-Ray (Signed) Akua Reeves - 12/02/23 Abdomen/Pelvis CT (Signed) Pablo Abdul - 11/18/23 Echocardiogram Ultrasound (Signed) Katarina Che - 08/18/23 Telemetry Strips 08/18/[address] (Signed) Ryley Flores - 08/17/23 Chest X-Ray (Signed) Ryley Flores - 08/17/[address] (Signed) Ryley Flores - 08/17/23 Launch?[place] [address] CT Scan Report Signed Patient: Elidia Valdez MR#: [id number] : 1950 Acct:[id number] Age/Sex: 73 / F Date of Service: 12/11/23 Loc: ED Accession Number: [id number] Procedure: CT cervical spine wo con Ordering Provider: Brianna Agustin D.O. PROCEDURE: CT CERVICAL SPINE WO CON INDICATIONS: found down, alt mental status, + cspine tenderness TECHNIQUE: Noncontrast 3 mm thick sections acquired from the skull base to the T4 level. Sagittal and coronal reformats were then constructed. For radiation dose reduction, the following was used: automated exposure control, adjustment of mA and/or kV according to patient size. COMPARISON: [facility], CT, CT CERVICAL SPINE WO CON, 08/17/2023, 21:10. FINDINGS: Image quality: Excellent. Bones: No fractures or dislocations. Degenerative endplate changes are noted in mid to lower cervical spine most notably involving C5-6 level with dorsal disc osteophyte complex formation and bilateral facet hypertrophic changes causing mild central canal stenosis and bilateral neural foraminal narrowing. Visualized superior ribs are intact. Soft tissues: Prevertebral soft tissues are normal in thickness. No paravertebral hematomas. No apical pneumothoraces. IMPRESSION: No acute cervical spine fracture or dislocation. Degenerative disc disease in mid to lower cervical spine as above. Dictated by: Sunday Roth M.D. on 12/11/2023 at 13:58 Approved by: Sunday Roth M.D. on 12/11/2023 at 14:00 Chest x-ray: Radiologist's Impression: [place] [address] XRay Report Signed Patient: Elidia Valdez MR#: [id number] : 1950 Acct:[id number] Age/Sex: 73 / F Date of Service: 12/11/23 Loc: ED Accession Number: [id number] Procedure: XR chest 1V Ordering Provider: Brianna Agustin D.O. PROCEDURE: XR CHEST 1V INDICATIONS: found down, alt mental status, + cspine tenderness TECHNIQUE: One view of the chest was acquired. COMPARISON: [facility], CR, XR CHEST 2V, 12/02/2023, 16:29. FINDINGS: Surgical changes and devices: None. Lungs and pleura: Lungs are clear. No pleural effusions or pneumothorax. Mediastinum: Mediastinal contours appear normal. Heart size is normal. Bones and chest wall: No suspicious bony lesions. Overlying soft tissues appear unremarkable. IMPRESSION: No acute cardiopulmonary abnormality is seen. Dictated by: Mitesh May M.D. on 12/11/2023 at 12:21 Approved by: Mitesh May M.D. on 12/11/2023 at 12:23 pelvis xray: Radiologist's Impression: Close Pelvis X-Ray (Signed) Sunday Roth - 12/11/[address] (Signed) Sunday Roth - 12/11/23 Chest X-Ray (Signed) MayMitesh - 12/11/[address] (Signed) Sunday Roth - 12/11/[address] (Signed) WilbertArt - 12/02/23 Chest X-Ray (Signed) Akua Reeves - 12/02/23 Abdomen X-Ray (Signed) Akua Reeves - 12/02/23 Abdomen/Pelvis CT (Signed) ChantellPablo - 11/18/23 Echocardiogram Ultrasound (Signed) Katarina Che - 08/18/23 Telemetry Strips 08/18/[address] (Signed) Ryley Flores - 08/17/23 Chest X-Ray (Signed) Ryley Flores - 08/17/[address] (Signed) Ryley Flores - 08/17/23 Launch?[place] [address] XRay Report Signed Patient: Elidia Valdez MR#: [id number] : 1950 Acct:[id number] Age/Sex: 73 / F Date of Service: 12/11/23 Loc: ED Accession Number: [id number] Procedure: XR pelvis 1-2V Ordering Provider: Brianna Agustin D.O. PROCEDURE: XR PELVIS 1-2V INDICATIONS: fall TECHNIQUE: 1 view(s) of the pelvis acquired. COMPARISON: [facility], PELVIS 1 OR 2 VIEWS, 11/19/2013, 13:37. FINDINGS: Bones: Patient is status post interval internal fixation of right proximal femur with healing at intertrochanteric fracture site. No gross hardware loosening or failure. Pelvic ring is grossly intact. No new fracture or dislocation. Osteoarthritic changes throughout bony pelvis is seen. No suspicious bony lesions. Degenerative disc disease in visualized lower lumbar spine is seen. Soft tissues: Visualized bowel gas pattern is normal. No suspicious soft tissue calcifications. IMPRESSION: Post ORIF changes in right femoral shaft. No acute pelvic fracture or dislocation. Osteoarthritis throughout bony pelvis. Degenerative disc disease in lower lumbar spine. Dictated by: Sunday Roth M.D. on 12/11/2023 at 13:56 Approved by: Sunday Roth M.D. on 12/11/2023 at 13:57 ECG Data Attestation: I personally reviewed and interpreted this ECG as follows: Prior ECG tracings: available for review Interpretation: Rhythm appears to likely be sinus there is some motion artifact but is very regular, rate 86 ND 140 QRS 80 QTC of 478. Patient has some nonspecific change. And appreciate any acute ST elevation. MDM Narrative Medical decision making narrative: Head CT, cervical C-spine show no acute fracture or bleed. Chest x-ray is negative. Pelvic x-ray shows post ORIF changes in the right femoral but no pelvic fracture dislocation. Patient's temp little bit low at 96 6 pulses in the 90s no hypotension no hypoxia. Patient has a white count 11 4 but normal hemoglobin and platelets. INR is 1.2 patient has hyponatremia, hypokalemia with low sodium, BUN 20 creatinine 0.46 glucose is 167 lactate appropriate 1.7 but bilirubin is up at 1.6, AST ALT are 83 and 42 ammonia is negative total CK is 2240 he consistent with being on the floor overnight and patient has some deep bruises on her chin and hip. Patient's troponin is positive, she does not have any renal changes was negative in July of 2023. She does not have any chest pain or shortness of breath or cardiac equivalent currently. Procalcitonin negative at 0.13, TSH is negative. Prolactin 24 but unlikely to have seizure activity. UA positive for ketones, 2+ protein, 2+ occult blood, squamous 5-10 epithelials. COVID/influenza/RSV is negative. Patient received a 1L of fluids. Patient has been labile with pressures sometimes BT and then will be 120 immediately after and then 80 systolic and then [address] Spencer who is covering for Dr. Jordan. Patient and I did discuss her DNR/DNI status. Patient is quite confused notes in her chart from her primary care visit several days ago that has confusion and is feeding evaluated for unknown cause of weight loss. Patient does not have any clear DPOA or family. There is potentially a friend but patient indicates that they probably do not have legal DPOA paperwork. Discussed code status, and after discussion with Dr. Spencer in the patient she is DNR/DNI but okay with medications. Dr. Spencer accepts for admission for, altered mental status which maybe her baseline, elevated troponin but without chest pain or shortness of breath/NSTEMI. And elevated CK. Discharge Plan Departure Patient Disposition: Admitted As Inpatient Clinical Impression: Fall, Non-ST elevation MT (NSTEMI), Elevated CK Admit Date/Time: 12/11/23 17:37 Admit Provider: Luis Spencer
[2023-12-11 13:11] LABS: Add Manual Diff / Slide Review NO; Basophils Absolute Auto 0 /uL (0-100); Basophils Percent Auto 0.3 % (0-2); Eosinophils Absolute Auto 0 /uL (0-450); Hematocrit 40.8 % (36-46); Hemoglobin 13.9 g/dL (12.0-16.0); Lymphocytes Absolute Auto 300 /uL (1100-4500); Mean Corpuscular HGB Conc 34.1 % (30-36); Monocytes Absolute Auto 500 /uL (0-900); Monocytes Percent Auto 4.5 % (3-14); Neutrophils Absolute Auto 10500 /uL (1500-7000); Neutrophils Percent Auto 92.2 % (50-75); Platelet Count 152 X10^3/uL (150-400); Red Blood Cell Count 4.34 X10^6/uL (4.0-5.2); Red Cell Distribution Width 13.5 % (11.6-14.8); White Blood Cell Count 11.4 X10^3/uL (4.5-11.0)
[2023-12-11 13:24] LABS: INR 1.2 (0.9-1.3); Prothrombin Time 13.4 SECONDS (9.4-12.5)
[2023-12-11 13:26] LABS: PTT Partial Thromboplastin Tim 27 SECONDS (25.1-36.5)
[2023-12-11 13:27] LABS: Lactate (Lactic Acid) 1.7 mmol/L (0.7-2.1)
[2023-12-11 13:29] LABS: Acetaminophen < 10 ug/mL (10-30); Alanine Aminotransferase 42 IU/L (<35); Albumin 4.4 g/dL (3.5-5.0); Alkaline Phosphatase 58 U/L (38-126); Aspartate Aminotransferase 83 IU/L (14-36); BUN Creatinine Ratio 43.5 (6-22); Bilirubin Total 1.6 mg/dL (0.2-1.3); Blood Urea Nitrogen 20 mg/dL (7-17); Calcium 9.8 mg/dL (8.4-10.2); Carbon Dioxide 25 mmol/L (22-32); Chloride 96 mmol/L (98-107); Estimated Glomerular Filt Rate > 60 mL/min (>60); Ethanol (ETOH) < 10 mg/dL; Globulin 4.5 g/dL (1.7-4.1); Glucose 167 mg/dL (80-110); HEMOLYSIS < 15 (0-50); Potassium 3.1 mmol/L (3.4-5.1); Salicylate < 1.0 mg/dL (<20); Sodium 130 mmol/L (137-145); Total Protein 8.9 g/dL (6.3-8.2)
[2023-12-11 13:35] LABS: Creatine Kinase 2240 U/L (30-135)
[2023-12-11 13:42] LABS: Troponin I 0.129 ng/mL (0.01-0.034)
[2023-12-11 13:45] LABS: Procalcitonin 0.13 ng/mL (<0.5); Prolactin 24.8 ng/mL (3.0-18.6)
[2023-12-11 13:50] LABS: Ammonia (NH3) < 9 umol/L (9-30)
[2023-12-11] MEDS: SODIUM CHLORIDE 0.9% 1,000 ML 1000 ML IV ×2 (13:54→16:05)
[2023-12-11 13:58] LABS: Thyroid Stimulating Hormone 0.859 uIU/mL (0.47-4.68)
--- NOTE | 2023-12-11 14:23 | PC.NURSE ---
Addendum entered by Faviola De Leon R.N. 12/11/23 14:32: Bruising to her LEFT upper arm. Original Note: Bilateral non-blanchable contusions to her lateral aspects of hips. Gravel found on her RIGHT surface of hip and gently removed. Bilateral non-blanchable contusions to her elbows. Multiple non-bleeding scratches to her bilateral feet and scrap on her RIGHT pinky toe and RIGHT ankle. Blanchable contusion to RIGHT ankle. Bruising to her LEFT chin and LEFT NECK and upper LEFT shoulder. Bruises to LEFT forearm and RIGHT hand. Contusions to her RIGHT upper back and LEFT upper back.
[2023-12-11] MEDS: ASPIRIN 81 MG CHEW TAB 324 MG PO (14:34)
[2023-12-11 14:42] LABS: Appearance Urine UA CLEAR; Bilirubin Urine UA NEGATIVE (NEGATIVE); Color Urine UA YELLOW; Glucose Urine UA TRACE g/dL (Negative); Ketones Urine UA 1+ (NEGATIVE); Leukocyte Esterase Urine UA NEGATIVE (NEGATIVE); Nitrite Urine UA NEGATIVE (Negative); Occult Blood Urine UA 2+ (Negative); Protein Urine UA 2+ (Negative); Specific Gravity Urine UA >=1.030 (1.000-1.035); UR Morphine/Opiate cutoff 300 Negative (Negative); Ur Creatinine Normal (Normal); Ur Specific Gravity Normal (Normal); Urine Amphetamines Negative (Negative); Urine Barbiturates Negative (Negative); Urine Benzodiazepines Negative (Negative); Urine Cocaine Negative (Negative); Urine MDMA Negative (Negative); Urine Methadone Negative (Negative); Urine Methamphetamines Negative (Negative); Urine Oxycodone Negative (Negative); Urine Phencyclidine Negative (Negative); Urine Tetrahydrocannabinol Negative (Negative); Urine Tricyclic Antidepressant Negative (Negative); Urine pH Normal (Normal); Urobilinogen Urine UA 0.2 E.U./dL (0.2)
[2023-12-11 14:43] LABS: pH Urine UA 5.5 (4.5-8.0)
[2023-12-11 14:48] LABS: Bacteria Urine Occasional (0-1); RBC Urine 1-5/HPF (0-5/HPF); Squamous Epithelial Cell Urine 5-10 /HPF (0-5/HPF); WBC Urine 1-5/HPF (0-5/HPF)
[2023-12-11 14:49] LABS: Amorphous Sediment Urine 1+; Culture Indicated Urine Specimen Cultured
[2023-12-11 15:16] LABS: Influenza A - CEPHEID Flu A NEGATIVE (NEGATIVE); Influenza B - CEPHEID Flu B NEGATIVE (NEGATIVE); Respiratory Syncytial Virus Negative (Negative)
[2023-12-11 15:21] LABS: COVID-19 CEPHEID 4-PLEX PCR Negative (Negative)
--- NOTE | 2023-12-11 15:32 | PC.NURSE ---
[facility] referral completed on line as pt is an at risk person.
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
[2023-12-11 16:04] LABS: Troponin I 0.142 ng/mL (0.01-0.034)
--- NOTE | 2023-12-11 18:12 | PC.NURSE ---
Per Erich- Coordinator- Dr. Monsivais is aware of intermittent hypotension, no new orders at this time & pt will go to floor.
[2023-12-11] MEDS: SODIUM CHLORIDE 0.9% 1,000 ML 125 ML IV (21:11)
[2023-12-12] MEDS: SODIUM CHLORIDE 0.9% 1,000 ML 125 ML IV ×3 (05:01→23:30)
[2023-12-12 05:39] LABS: Add Manual Diff / Slide Review NO; Basophils Absolute Auto 0 /uL (0-100); Basophils Percent Auto 0.9 % (0-2); Eosinophils Absolute Auto 100 /uL (0-450); Eosinophils Percent Auto 1.6 % (2-4); Hemoglobin 10.2 g/dL (12.0-16.0); Lymphocytes Absolute Auto 600 /uL (1100-4500); Lymphocytes Percent Auto 11.8 % (25-40); Mean Corpuscular HGB Conc 35.2 % (30-36); Mean Corpuscular Volume 93.7 fL (80-100); Monocytes Absolute Auto 300 /uL (0-900); Monocytes Percent Auto 6.1 % (3-14); Neutrophils Absolute Auto 3800 /uL (1500-7000); Neutrophils Percent Auto 79.6 % (50-75); Platelet Count 97 X10^3/uL (150-400); Red Blood Cell Count 3.09 X10^6/uL (4.0-5.2); Red Cell Distribution Width 13.2 % (11.6-14.8); White Blood Cell Count 4.7 X10^3/uL (4.5-11.0)
[2023-12-12 05:49] LABS: Alanine Aminotransferase 34 IU/L (<35); Albumin 2.8 g/dL (3.5-5.0); Albumin Globulin Ratio 0.9 (1.0-2.8); Alkaline Phosphatase 41 U/L (38-126); Aspartate Aminotransferase 64 IU/L (14-36); Bilirubin Total 0.8 mg/dL (0.2-1.3); Blood Urea Nitrogen 16 mg/dL (7-17); Calcium 8.8 mg/dL (8.4-10.2); Carbon Dioxide 21 mmol/L (22-32); Chloride 107 mmol/L (98-107); Creatine Kinase 1249 U/L (30-135); Estimated Glomerular Filt Rate > 60 mL/min (>60); Glucose 103 mg/dL (80-110); HEMOLYSIS < 15 (0-50); Potassium 3.1 mmol/L (3.4-5.1); Sodium 132 mmol/L (137-145); Total Protein 5.8 g/dL (6.3-8.2)
[2023-12-12 07:00] VITALS: O2SAT 98
[2023-12-12] MEDS: POTASSIUM CHLORIDE 20 MEQ TAB 40 MEQ PO (07:36)
[2023-12-12 08:19] VITALS: BP 133/68; PULSE 86; RESP 19; TEMP 36.8; O2SAT 98
[2023-12-12] MEDS: ENOXAPARIN 40 MG/0.4 ML SYRINGE SUBCUT (09:37)
[2023-12-12] MEDS: ACETAMINOPHEN 325 MG TABLET 650 MG PO ×2 (09:37→21:11)
--- NOTE | 2023-12-12 09:44 | PT.IIE ---
Physical Therapy Inpatient Evaluation/Re-Eval M1 PT/OT-IP Prior Functional Status Start: 12/12/23 07:54 Freq: NEEDED Status: Active Protocol: Document 12/12/23 08:48 MB (Rec: 12/12/23 09:44 MB [id number]) Medical Review Prior Functional Status Medical History Reviewed Yes Communication Unsure baseline communication and diet Mobility and Gait Pt cannot answer and her friend and neighbor who is a retired nurse answers most questions: she states that pt was not mobilizing well and had a cane and did not use it. Activities of Daily Living and IADL's Friend reports pt has had a personality change, used to be social and has been at home with the blinds closed. Her keys were lost. She had friends/neighbors assist with shopping. She has a dog. Friend reports concern about pt driving. She states there had been discussion about assisted living Social History Household Members none Living Arrangements Apartment/Condo Number of Floors (Floors) One Floor Number of Stairs To Enter/Railing? No steps Home Environment Standard Height Toilet Home Equipment Straight Cane Employment Status Retired Additional Social History Comment Pt cannot answer PLOF questions and friend/neighbor assists with some questions M2 PT-IP Current Condition Start: 12/12/23 07:54 Freq: NEEDED Status: Active Protocol: Document 12/12/23 08:48 MB (Rec: 12/12/23 09:44 [id number]) Physical Therapy Current Condition Current Condition Evaluation Date 12/12/23 Treatment Diagnosis Fall under bed, confusion M3 PT-IP Subjective Start: 12/12/23 07:54 Freq: NEEDED Status: Active Protocol: Document 12/12/23 08:48 MB (Rec: 12/12/23 09:44 [id number]) Subjective Physical Therapy Visit Type Type Initial Evaluation Visit Start Time 08:48 Visit Stop Time 09:20 Total Visit Minutes 32 Number of SOLAR DESIGNER/INSTALLER Visits 0 Physical Therapy Visit Comments Patient Comments Pt is hypoverbal and does not answer many questions. Con't to state that she needs to urinate and PT con't to cue pt that she can let it go, that she has a catheter. Pt cannot remember this. Therapy Pain Assessment Pain When Pain Assessed During Mobility Pain Present Pain Present Pain Reported Location Catheter site Intensity 5 Scale Used Rice-Longoria (Faces) Description Acute Pain Behaviors Facial Grimacing,Guarding, Wincing Pain Management Techniques Distraction,Modification of Treatment,Re-positioning M4 PT-IP Mobility and Gait Start: 12/12/23 07:54 Freq: NEEDED Status: Active Protocol: Document 12/12/23 08:48 MB (Rec: 12/12/23 09:44 MB [id number]) PT-Bed Mobility Assessment Supine to Sit Supine to Sit Maximum Assistance,1 Person Assistance,Head of Bed Elevated,Bedrails Scooting Scooting to Edge of Bed Moderate Assistance PT-Transfer Assessment Sit to and From Stand Sit to and from Stand Moderate Assistance,1 Person Assistance,Use of Upper Extremities Equipment Transfer Assistive Device Gait Belt,Front Wheeled Walker Orthotic/Prosthetic Devices or Brace: No Transfers Transfer Destination Bedside Commode Transfer Technique Stand Step Pivot Transfer Ability Level of Assist Moderate Assistance,1 Person Assistance,Use of Upper Extremities Comments Mobility Comments Pt does not hold head up well, tends to keep eyes closed, has trouble following commands . She cannot move her left shoulder and PT examines the shoulder and she has bruising at distal clavicle/AC joint area and pain with PT applying pressure around proximal humerus. PT will communicate with team at rounds. Chest and cervical diagnostics were negative. Pt has many areas of bruising from the fall. PT had hoped to check orthostatics but pt unable to tolerate and appears to need to use BR. Gait Assessment Gait Gait Assistance Required: Moderate Assistance,1 Person Assist,2 Person Assist Distance (Feet) 2 Able to Maintain Weight Bearing Status Yes During Gait Assistive Devices Assistive Device Gait Belt,Front Wheeled Walker Orthotic/Prosthetic Devices or Brace: No Gait Deviations General Gait Pattern Antalgic,Decreased Stride Length,Decreased Feet Clearance,Flexed Trunk,Wide Based Gait Factors Limiting Gait Function Factors Limiting Gait Function Decreased Activity Tolerance, Decreased Strength,Difficulty Following Directions,Pain,Poor Balance,Poor Safety Awareness Comments Gait Comments Several steps bed to chair and then chair to BSC and back to chair with PT and DISEASE EDUCATION SPECIALIST and walker. Pt tends to keep eyes closed, has poor neck control and poor use of left arm. PT-Balance Assessment Sitting Balance and Reactions Static Sitting Balance Ability Poor Dynamic Sitting Balance Ability Poor Standing Balance and Reactions Static Standing Balance Ability Poor Dynamic Standing Balance Ability Poor Device Used RW M5 PT-IP Objective Assessments Start: 12/12/23 07:54 Freq: NEEDED Status: Active Protocol: Document 12/12/23 08:48 MB (Rec: 12/12/23 09:44 MB [id number]) Orientation Orientation/Cognition Level of Alertness Confusional State Orientation Name,Birthday,Place Safety Awareness Decreased Safety Awareness Memory Description Short Term Impaired,Teacher Of The Emotionally Disturbed Impaired Comments Pt is hypoverbal Gross Range of Motion Upper Extremity ROM Assessment Left Impaired Lower Extremity ROM Assessment Bilaterally Impaired Strength Comments Strength Comments Pt does not follow commands for any MMT. She uses right hand to lift up left arm for PT to adjust hospital gown. Coordination Assessment Assessment Coordination Comments Cannot participate with this Sensation Assessment Comments Sensation Comments Cannot participate with sensory testing M7 PT-IP Assessment and Plan Start: 12/12/23 07:54 Freq: NEEDED Status: Active Protocol: Document 12/12/23 08:48 MB (Rec: 12/12/23 09:44 MB [id number]) PT Summary Assessment and Plan Potential Rehabilitation Potential Fair Status of Condition at Evaluation Evolving Summary Impairments Pain,ROM,Strength,Balance, Cognition,Bed Mobility, Transfers,Gait,Activity Tolerance Progress Towards Goals Slow Progress due to Medical Issues,Slow Progress due to Activity Tolerance Assessment Summary Pt is a lady found down under her bed after fall and she was down for indetermite time. Her friend and neighbor who is a retired nurse is nearby during assessment. She reports concern that pt has been in her duplex with blinds drawn and not going out and only admitting friends when they visit. Defer to SW as far as further history/obtaining further info from pt's POA. Pt has many bruises and PT notes that she cannot lift her left arm. She has bruising near her AC joint and pt around proximal humerus. Her neck and left arm appear weak. Cervical dx was negative and no shoulder dx noted. PT cannot rule out neuromuscular and/or orthopedic injury. Pt is hypoverbal, has confusion, and is hyperfocused on needing to urinate and no understanding of catheter. She also has some hard stool on BSC with toileting effort. Recommend ongoing acute and post-acute PT to improve mobility. Recommend OT consult for ADLs and cognitive assessment. Goals Bed Mobility Goal Standby Assistance Transfer Goal Standby Assistance,Front Wheeled Walker Gait Goal Standby Assistance,Front Wheel Walker Gait Distance 75 Days to Meet Goals 5 Frequency of Treatment Frequency Of Treatment Once a Day Treatment Plan Physical Therapy Treatment Plan Bed Mobility Training,Transfer Training,Gait Training, Therapeutic Exercise,Balance Retraining,Discharge Planning Weight Bearing Status Weight Bearing Status Weight Bear as Tolerated Recommendations To Nursing Amount of Assist Needed 2 Person Assist Discharge Recommendations PT Discharge Recommendations SNF Rehab Other Discharge Recommendations Acute OT consult Transportation Needs at Discharge Wheelchair/Cabulance
--- NOTE | 2023-12-12 11:26 | DI.CT.S_ITS ---
PROCEDURE: CT CHEST ABD PEL W CON INDICATIONS: weight loss TECHNIQUE: After the administration of intravenous contrast, 5 mm thick sections acquired from the lung apices to the symphysis. 5 mm coronal and sagittal reformats were performed, with additional 7 mm MIP reformats through the lungs. For radiation dose reduction, the following was used: automated exposure control, adjustment of mA and/or kV according to patient size. COMPARISON: None. FINDINGS: Image quality: Excellent. CHEST: Lower Neck: No enlarged lymph nodes. Soft tissue emphysema tracking along the trachea starting at the level of the thyroid extending down to the mediastinum. Thyroid: No thyroid nodules which require sonographic follow up, per consensus guidelines. Axillae: No enlarged lymph nodes. Chest Wall: Unremarkable. Lungs and Pleura: No pneumothorax or pleural effusions. Emphysematous changes of the bilateral lungs. Numerous subpleural nodules the largest within the right upper lobe measuring 1.5 by 0.5 cm. No concerning consolidation Heart: Heart size is normal. No pericardial effusion. Mild coronary artery calcifications. Thoracic Vessels: The aorta and pulmonary arteries demonstrate normal size. Mediastinum and Valeria: No enlarged lymph nodes. Pneumomediastinum tracking down to the channing. Esophagus: No wall thickening. No hiatal hernia. ABDOMEN: Liver: No solid mass. Gallbladder: No radiopaque gallstones or wall thickening. Biliary ducts: No biliary dilation. Pancreas: No ductal dilation. Spleen: Size is within normal limits. Adrenal Glands: No adrenal nodules. Kidneys and Ureters: No hydronephrosis. No solid mass. No complex renal cystic lesion which requires follow up. Stomach and Bowel: Normal colonic caliber, without significant wall thickening. Peritoneum: No abnormal intraperitoneal fluid. No free air. Ventral Wall: No hernia. Abdominal Nodes: No retroperitoneal or mesenteric adenopathy by size criteria. Vessels: Aorta and inferior vena cava are normal in size. PELVIS: Pelvic Organs: Unremarkable. Bladder: Noyola catheter is present. Pelvic Nodes: No enlarged lymph nodes. Miscellaneous: No inguinal hernias are seen. Bones: Intramedullary michael and screw screw fixation of the right hip. Multilevel wedge fractures with large Schmorl nodes of the lumbar spine. IMPRESSION: Pneumomediastinum of unclear etiology with air extending from near the channing to the thyroid. Multiple spiculated subpleural nodules, largest measuring 1.5 cm. Recommend follow-up in 3-6 months. Emphysematous changes of the lungs. Moderate stool volume. Dictated by: Mitesh May M.D. on 12/12/2023 at 11:20 Approved by: Mitesh May M.D. on 12/12/2023 at 11:34
--- NOTE | 2023-12-12 11:32 | P.HP_ITS ---
History of Present Illness History of Present Illness Date Patient Seen: 12/12/23 Time Patient Seen: 11:32 Date of Onset of Symptoms: 12/11/23 Chief complaint: Fall/Alt mental Status/Px in neck Narrative: Patient is a 73-year-old I am seeing in [facility] who I get history through friend and through her. Patient lives independently but has had difficulty over the last 3 months. Certainly since she had COVID several months ago apparently there has been a down turn. Patient is unsure what exactly happened and is quite confused about being in a small house but she fell and could not get up. Probably an unknown amount of hours before she was found by neighbors. She was on the floor. She does not know exactly what happened but she does feel like she maybe hit her head. She has no other significant change. Apparently she was treated with mirtazapine but she has not been on it on a consistent basis. She otherwise is having no current medicines no issues or complaints. No persistent issue apparently she has had 30 lb weight loss over the last few months. She was in the ER a month ago and had a CT scan of her abdomen which showed a narrowing and constipation possible colitis but has not been worked up further. Apparently she just does not eat. But she does not say it hurts does not say she has dysphagia. She has not had any blood in her stool she was constipated. But no other changes. No urinary changes. No fevers no chills no night sweats. She basically does not any unless she has issues. She is complaining of some hip pain and left arm pain which apparently has been longstanding. A little numbness in her left hand. Other than that she has no other significant change. PFSH Family History Mother Heart disease Hypertension Stroke Social History household members: none Smoking Status: Never smoker alcohol intake: never Meds Home Medications and Allergies Home Medications Medication Instructions Recorded Confirmed Type mirtazapine 15 mg tablet 15 mg PO BEDTIME #30 tabs 11/18/23 12/11/23 Rx Allergies Allergy/AdvReac Type Severity Reaction Status Date / Time No Known Drug Allergies Allergy Verified 12/10/23 14:42 Review of Systems Constitutional Comments: All negative except above Exam Vital Signs (past 8 hours): - 12/12/23 08:19 Temperature 98.3 F Pulse Rate 86 Respiratory Rate 19 Blood Pressure 133/68 Pulse Oximetry 98 Oxygen Flow Rate 0 Oxygen Delivery Method Room Air Oxygen Flow Rate 0 Narrative Exam Narrative: Alert thin female confused in no acute distress HEENT exam I do not see any definitive bruising no other changes just seems to be moving well. Neck is mildly tender no adenopathy no supraclavicular adenopathy lungs are clear heart is regular rate and rhythm abdomen is soft positive bowel sounds scaphoid no masses does not appear to be tender extremities without cyanosis clubbing edema. Left shoulder actually has pretty good range of motion maybe slightly tender. Neurologic exam nonfocal. Patient score 2 proximally 18 on slums Objective Labs 12/12/23 05:18 12/12/23 05:18 Labs: Laboratory Results - last 24 hr 12/11/23 12/11/23 12/11/23 13:09 13:25 13:48 WBC 11.4 H RBC 4.34 Hgb 13.9 Hct 40.8 MCV 94.0 MCH 32.0 MCHC 34.1 RDW 13.5 Plt Count 152 Neut % (Auto) 92.2 H Lymph % (Auto) 3.0 L [place] % (Auto) 4.5 Eos % (Auto) 0.0 L Baso % (Auto) 0.3 Neut # (Auto) 43700 H Lymph # (Auto) 300 L [place] # (Auto) 500 Eos # (Auto) 0 Baso # (Auto) 0 PT 13.4 H INR 1.2 APTT 27 Sodium 130 L Potassium 3.1 L Chloride 96 L Carbon Dioxide 25 BUN 20 H Creatinine 0.46 L Estimated GFR > 60 BUN/Creatinine Ratio 43.5 H Glucose 167 H Lactate 1.7 Calcium 9.8 Magnesium Total Bilirubin 1.6 H AST 83 H ALT 42 H Alkaline Phosphatase 58 Ammonia < 9 L Total Creatine Kinase 2240 H Troponin I 0.129 H* Total Protein 8.9 H Albumin 4.4 Globulin 4.5 H Albumin/Globulin Ratio 1.0 Procalcitonin 0.13 TSH 0.859 Prolactin 24.8 H Urine Color Urine Appearance Urine pH Ur Specific [place] Urine Protein Urine Glucose (UA) Urine Ketones Urine Occult Blood Urine Nitrate Urine Bilirubin Urine Urobilinogen Ur Leukocyte Esterase Urine RBC Urine WBC Ur Squamous Epith Cells Amorphous Sediment Urine Bacteria Ur Culture Indicated? Salicylates < 1.0 U Opiates 300ng/mL cut Ur Oxycodone Screen Urine Methadone Screen Acetaminophen < 10 Ur Barbiturates Screen U Tricyclic Antidepress Ur Phencyclidine Scrn Ur Amphetamines Screen U Methamphetamines Scrn Ur MDMA Scrn (Ecstasy) U Benzodiazepines Scrn Urine Cocaine Screen U Marijuana (THC) Screen Urine Specific [place] Ethyl Alcohol < 10 Ur Creatinine SARS-CoV-2 (PCR) Negative Influenza A (RT-PCR) Flu a negative Influenza B (RT-PCR) Flu b negative RSV (PCR) Negative 12/11/23 12/11/23 12/11/23 14:16 14:16 15:10 WBC RBC Hgb Hct MCV MCH MCHC RDW Plt Count Neut % (Auto) Lymph % (Auto) [place] % (Auto) Eos % (Auto) Baso % (Auto) Neut # (Auto) Lymph # (Auto) [place] # (Auto) Eos # (Auto) Baso # (Auto) PT INR APTT Sodium Potassium Chloride Carbon Dioxide BUN Creatinine Estimated GFR BUN/Creatinine Ratio Glucose Lactate Calcium Magnesium Total Bilirubin AST ALT Alkaline Phosphatase Ammonia Total Creatine Kinase Troponin I 0.142 H* Total Protein Albumin Globulin Albumin/Globulin Ratio Procalcitonin TSH Prolactin Urine Color Yellow Urine Appearance Clear Urine pH 5.5 Normal Ur Specific [place] >=1.030 H Urine Protein 2+ H Urine Glucose (UA) Trace H Urine Ketones 1+ H Urine Occult Blood 2+ H Urine Nitrate Negative Urine Bilirubin Negative Urine Urobilinogen 0.2 Ur Leukocyte Esterase Negative Urine RBC 1-5/hpf Urine WBC 1-5/hpf Ur Squamous Epith Cells 5-10 /hpf H Amorphous Sediment 1+ Urine Bacteria Occasional (0-1) Ur Culture Indicated? Specimen cultured Salicylates U Opiates 300ng/mL cut Negative Ur Oxycodone Screen Negative Urine Methadone Screen Negative Acetaminophen Ur Barbiturates Screen Negative U Tricyclic Antidepress Negative Ur Phencyclidine Scrn Negative Ur Amphetamines Screen Negative U Methamphetamines Scrn Negative Ur MDMA Scrn (Ecstasy) Negative U Benzodiazepines Scrn Negative Urine Cocaine Screen Negative U Marijuana (THC) Screen Negative Urine Specific [place] Normal Ethyl Alcohol Ur Creatinine Normal SARS-CoV-2 (PCR) Influenza A (RT-PCR) Influenza B (RT-PCR) RSV (PCR) 12/12/23 05:18 WBC 4.7 D RBC 3.09 L Hgb 10.2 L Hct 29.0 L MCV 93.7 MCH 33.0 MCHC 35.2 RDW 13.2 Plt Count 97 L Neut % (Auto) 79.6 H Lymph % (Auto) 11.8 L [place] % (Auto) 6.1 Eos % (Auto) 1.6 L Baso % (Auto) 0.9 Neut # (Auto) 3800 Lymph # (Auto) 600 L [place] # (Auto) 300 Eos # (Auto) 100 Baso # (Auto) 0 PT INR APTT Sodium 132 L Potassium 3.1 L Chloride 107 Carbon Dioxide 21 L BUN 16 Creatinine 0.50 L Estimated GFR > 60 BUN/Creatinine Ratio 32.0 H Glucose 103 Lactate Calcium 8.8 Magnesium 2.0 Total Bilirubin 0.8 AST 64 H ALT 34 Alkaline Phosphatase 41 Ammonia Total Creatine Kinase 1249 H D Troponin I Total Protein 5.8 L Albumin 2.8 L Globulin 3.0 Albumin/Globulin Ratio 0.9 L Procalcitonin TSH Prolactin Urine Color Urine Appearance Urine pH Ur Specific [place] Urine Protein Urine Glucose (UA) Urine Ketones Urine Occult Blood Urine Nitrate Urine Bilirubin Urine Urobilinogen Ur Leukocyte Esterase Urine RBC Urine WBC Ur Squamous Epith Cells Amorphous Sediment Urine Bacteria Ur Culture Indicated? Salicylates U Opiates 300ng/mL cut Ur Oxycodone Screen Urine Methadone Screen Acetaminophen Ur Barbiturates Screen U Tricyclic Antidepress Ur Phencyclidine Scrn Ur Amphetamines Screen U Methamphetamines Scrn Ur MDMA Scrn (Ecstasy) U Benzodiazepines Scrn Urine Cocaine Screen U Marijuana (THC) Screen Urine Specific [place] Ethyl Alcohol Ur Creatinine SARS-CoV-2 (PCR) Influenza A (RT-PCR) Influenza B (RT-PCR) RSV (PCR) Assessment & Plan Assessment & Plan narrative: Elevated troponin. Certainly could be non ST-elevation STEMI. Certainly not having a lot of symptoms. EKG did not show anything definitive will repeat today and follow and will obtain echo. Depending on how that goes will have to see what happens from here. If echo shows definitive abnormality will treat but unlikely significant impact given her vital signs. Hypokalemia. Replaced today. Rechecked tomorrow. Should be able to do orally Anemia. Patient has multiple issues possible with weight loss will certainly concerning for possible GI issue will get fit test. Will obtain iron studies B12 folate and re-evaluate in recheck in a.m.. Will place on Protonix to cover. Weight loss. Etiology is unclear. Does have previous abnormality and abdomen on CT scan with:. But that may or may not be a significant issue will repeat CT and include chest abdomen and pelvis. Certainly her mental status could have a major issue on this. CT scan showed no major central issue and will have to see how that goes. It is certainly possible this is depression but I think there some dementia also involved. And all of this could be combining for multiple cause issue but we need to find out physically what is going on from there. Due to her anemia will place on Protonix and see how things go. Memory changes. Patient certainly has a history of depression and could be depression. I suspect it is more than that. I suspect there is some dementia and may need neuropsychiatric evaluation. Also the question is whether or not she is safe to be living at home. Or whether she can even manage at home. Will have to see how this goes. Whether or not her weight loss is coming from her depression or from possible significant dementia it is unclear at this time will have to see what workup develops. Shoulder pain. Will obtain x-ray. Follow from there. I do not think we have to do anything definitive right now. Left hand pain. Normal exam. Maybe from the fall she is having some numbness her neck x-rays are normal will continue to follow. Multiple contusions. From fall. No evidence of fractures but will need to follow closely. PT. DVT prophylaxis. Patient is probably not going to move much will add Lovenox. GI prophylaxis on medication Code status DNI DNR Disposition. It is unclear. She will least be here until we figure out her cardiac status and other acute issues including her anemia and hypokalemia. I am sure she will be here at least 48 hours. No other changes. 75 minutes spent with patient help her social service nursing dictation history and physical chart review
[2023-12-12 11:52] LABS: Creatine Kinase 1249 U/L (30-135); HEMOLYSIS < 15 (0-50); Iron 33 ug/dL (37-170)
[2023-12-12 12:02] LABS: Troponin I 0.106 ng/mL (0.01-0.034)
[2023-12-12 12:03] LABS: Percent Iron Saturation 15 % (15-50); Total Iron Binding Capacity 220 ug/dL (265-497); Transferrin 198 mg/dL (206-381)
[2023-12-12 12:25] LABS: Ferritin 133 ng/mL (11-264)
[2023-12-12 12:56] LABS: Folate 7.4 ng/mL (2.76-20.0); Vitamin B12 462 pg/mL (239-931)
--- NOTE | 2023-12-12 14:48 | CM.DPNOTE ---
DCP: Spoke to Marisa at [facility], Cherie at [facility], and Lilian at [facility]. Marisa will review, gave her some updates on patient. Faxed referral over to [facility], Cherie indicated that she may have a alf bed coming up, and Lilian at [facility] indicated the same. SREEDHAR Major, will email referral to Lilian at [facility], since fax will not go through this weekend. Left a message with Martina in [place] to see if they have female beds. Tahira Tierney, RN/Home Theater Experience Expert
--- NOTE | 2023-12-12 15:13 | PM.CALLCOV.1 ---
Call Coverage Note Note Date of Patient Contact: 12/12/23 Time of Patient Contact: 15:13 Narrative of Care Provided: 73 y.o woman with failure to thrive found down. At admission hemodynamically stable NSTEMI, elevated CK. CT C/A/P incidental note of pneumomediastinum. CT and labs personally reviewed, significant for emphysema and small volume of pneumomediastinum, no pleural effusion or free intra abdominal air, no leukocytosis or fever. Suspect incidental finding is more likely from emphysema as oppose to aerodigastive injury. Nevertheless recommend esophageal swallow study to rule out esophageal injury and prophylactic abx therapy with fungal coverage until negative study. will be in to evaluate her later this afternoon with full consult note to follow.
--- NOTE | 2023-12-12 15:33 | CM.DANOTE ---
DCP Note Pt is a 73yo F here following fall/NSTEMI. Pt has had some recent cog. decline, with APS reports made by pt's PCP, who saw her a few days ago OP. Payer PRO Medicare and Medicaid PCP Rox Munoz PARADI OPERATOR reviewed EMR. Per chart review, ED nurse made APS referral for concerns on self neglect. Rounding provider hopeful for SNF prior to dc home vs the pending roasterman plan. PARADI OPERATOR met with pt and friends Nat (p [phone]) and Kim (p [phone]) at bedside. Pt groggy during dcp conversation and primary participants were her friends. Friends confirm no POA paperwork but would like to help become one- pt nodding along during this part of the conversation. Nat reports she's been helping with the financial/setting up caregivers in her home part of the plan. pt has been working with social work program coordinator Karen at [facility]. Pt getting set up with caregivers through [employer] for 3hrs/week. [facility] trying to get her set up with an additional 4hrs per week in the home. Friends report her house has fallen apart and are working on hiring alteration manager to deep clean it for her. Nat helps pt manage her bills. Nat helped get her set up with Meals on Wheels but friends do not think she is eating a lot on her own. Pt uses a cane but friends are working on getting her a walker. Friend reports pt is not ANGELIC eligible. Nat reports a week ago pt showed up at her work after driving herself their in her pajamas and was confused- friend Nat is looking into seeing how to take away pt's license due to pt's confusion/worried about her not being safe to drive. 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 Pt nodded in agreement at this. PARADI OPERATOR updated friends on potential barriers to being accepted at SNF for rehab- both the mcfp dcp could be seen and the current dementia. Friends expressed understanding. PARADI OPERATOR provided them with list of Memory care assisted living facilities in the area that accept Medicaid after a term of PP. Friends report going to tour them tomorrow, understand that they may want to consider [facility] as mcfp plan if unable to get increase PP CGs in the home. [facility]- agreed to review. ISATU- ELICIA Peralta spoke with Cherie- agreed to review. Cherie concerns about pt being far from support. RN Kathryn kindly agreed to send referral DENISE- ELICIA Peralta spoke with Lilian. Lilian agreed to review- ELICIA Peralta emailed Lilian referral. Lilian reports they have mcfp medicaid beds available at this time if she were to need longer term care. PARADI OPERATOR noticed general surgery consulted. DCP may be impacted by their findings/interventions. Plan: dcp pending medical POC/rehab acceptance/pt and POA preferences for roasterman options. CM team will continue to follow closely. SREEDHAR Renteria Discharge Planning/Care Management CM Discharge Assessment Start: 12/12/23 14:56 Freq: Status: Active Protocol: Document 12/12/23 15:18 SL (Rec: 12/12/23 15:29 SL [id number]) Discharge Planning Assessment Assigned Optical Laboratory Mechanic SREEDHAR Tong DPOA/Assigned Designee Name Kim (friend) Contact Information [phone] Advance Directives? No History Provided By Patient,Friend,Medical Record Prior Living Arrangements Apartment/Condo Household Members none Comment friend reports she drives herself but they are working on potentially taking away her license. Independent with ADL's No Is patient alert and oriented? No Needs Assistance With Eating,Meal Prep,Managing Medications,Home Chores / Shopping Comment friend reports she was struggling to take her one pill a day and her house is very messy, which is unlike her. Friend reports she's lost 30lbs recently from not eating Comment friend was working with [facility] to set up in home caregivers for her starting 12/14. 3hrs/ week with Eve. Attempting to get more CGs in the home DME Already Rented / Owned Cane Comment Has a cane. Friend working on obtaining a walker Patient/Family Preference Correction Facility Comment PT rec SNF placement at this time. Barriers to Discharge Yes Comment Accepting SNF facility with current cognitive decline in addition to no formalized dcp post SNF. Discharge Plan Correction Facility Transportation Arrangement Friend vs facility transport Referrals Initiated Correction,Other If patient plan is SNF: Has PASSR been No completed? Medicare Choice List Provided Yes SNF/HH Preference SNF preference is wherever can accept her- ideally closest to supports here in [place]. ISATU, donna, and MV reviewing Has Agency SNF been contacted Yes Whiteboard Updated in Patient Room with Yes name and ext. # of Optical Laboratory Mechanic Review Status In Process Next Review Type Continued Stay Review
[2023-12-12] MEDS: PIPERACILLIN/TAZO 4.5 GM in SODIUM CHLORIDE 0.9% 100 ML IV (15:56)
[2023-12-12] MEDS: FLUCONAZOLE 200 MG/100 ML PIGGYBACK 100 MG IV (16:45)
--- NOTE | 2023-12-12 17:00 | PM.CN ---
History of Present Illness Consult details Date Patient Seen: 12/12/23 Time Patient Seen: 17:00 Chief complaint: Fall/Alt mental Status/Px in neck Narrative: 73 y.o woman PMH dementia found down with incidential pneumomediastinum. Complains of throat/neck pain. No fever or leukocytosis. Unable to recall events and disoriented. Meds Home Medications and Allergies Home Medications Medication Instructions Recorded Confirmed Type mirtazapine 15 mg tablet 15 mg PO BEDTIME #30 tabs 11/18/23 12/11/23 Rx Allergies Allergy/AdvReac Type Severity Reaction Status Date / Time No Known Drug Allergies Allergy Verified 12/10/23 14:42 Exam Vital Signs (past 8 hours): Oxygen Delivery Method Room Air Oxygen Flow Rate 0 Narrative Exam Narrative: GENERAL: Thin elderly woman, resting comfortably, in no acute distress. HEENT: Normocephalic, atraumatic. No scleral icterus NECK-No crepitus CHEST: Rising symmetrically. No audible wheezes CARDIOVASCULAR: Warm and well perfused. Regular rate ABDOMEN: Soft, non-tender, non-distended Objective Labs 12/12/23 05:18 12/12/23 05:18 Labs: Laboratory Results - last 24 hr 12/12/23 12/12/23 05:18 05:18 WBC 4.7 D RBC 3.09 L Hgb 10.2 L Hct 29.0 L MCV 93.7 MCH 33.0 MCHC 35.2 RDW 13.2 Plt Count 97 L Neut % (Auto) 79.6 H Lymph % (Auto) 11.8 L [place] % (Auto) 6.1 Eos % (Auto) 1.6 L Baso % (Auto) 0.9 Neut # (Auto) 3800 Lymph # (Auto) 600 L [place] # (Auto) 300 Eos # (Auto) 100 Baso # (Auto) 0 Sodium 132 L Potassium 3.1 L Chloride 107 Carbon Dioxide 21 L BUN 16 Creatinine 0.50 L Estimated GFR > 60 BUN/Creatinine Ratio 32.0 H Glucose 103 Calcium 8.8 Magnesium 2.0 Iron 33 L TIBC 220 L % Saturation 15 Transferrin 198 L Ferritin 133 Total Bilirubin 0.8 AST 64 H ALT 34 Alkaline Phosphatase 41 Total Creatine Kinase 1249 H D 1249 H Troponin I 0.106 H Total Protein 5.8 L Albumin 2.8 L Globulin 3.0 Albumin/Globulin Ratio 0.9 L Vitamin B12 462 Folate 7.4 PFSH Family History Mother Heart disease Hypertension Stroke Social History household members: none Tobacco & Substance Use Smoking Status: Never smoker alcohol intake: never Assessment & Plan Assessment and plan (1) Pneumomediastinum: Status: Acute Assessment & Plan narrative: 73 y.o woman PMH dementia and failure to thrive found down with incidental pneumomediastium no respiratory distress or symptoms of systemic infection. No leukocytosis or fever, CT personally reviewed small volume of pneumomediastinum without pleural effusions and moderate emphysema. I suspect finding is a result of a benign lung injury not an aerodiagestive injury. Regardless given her frailty and inability to recall events recommend esophagram for rule out of esophageal injury and prophylactic abx. If esophagram negative ok for diet and dc abx. -NPO -Zosyn +Fluconazole -Esophagram
[2023-12-12 19:00] VITALS: O2SAT 96
[2023-12-12 19:49] LABS: Creatine Kinase 900 U/L (30-135)
[2023-12-12 20:30] VITALS: BP 135/69; PULSE 78; RESP 19; TEMP 37.4; O2SAT 96
[2023-12-12] MEDS: PIPERACILLIN/TAZO 3.375 GM in SODIUM CHLORIDE 0.9% 100 ML IV (20:34)
[2023-12-13] MEDS: PIPERACILLIN/TAZO 3.375 GM in SODIUM CHLORIDE 0.9% 100 ML IV ×3 (02:30→20:44)
[2023-12-13 05:27] LABS: Add Manual Diff / Slide Review NO; Basophils Absolute Auto 0 /uL (0-100); Basophils Percent Auto 1.2 % (0-2); Eosinophils Absolute Auto 100 /uL (0-450); Eosinophils Percent Auto 2.6 % (2-4); Hematocrit 27.4 % (36-46); Hemoglobin 9.5 g/dL (12.0-16.0); Lymphocytes Absolute Auto 800 /uL (1100-4500); Lymphocytes Percent Auto 22.5 % (25-40); Mean Corpuscular HGB Conc 34.8 % (30-36); Mean Corpuscular Hemoglobin 32.9 PG (26-34); Mean Corpuscular Volume 94.6 fL (80-100); Monocytes Absolute Auto 200 /uL (0-900); Neutrophils Absolute Auto 2200 /uL (1500-7000); Neutrophils Percent Auto 66.7 % (50-75); Platelet Count 82 X10^3/uL (150-400); Red Cell Distribution Width 13.9 % (11.6-14.8); White Blood Cell Count 3.4 X10^3/uL (4.5-11.0)
[2023-12-13 05:38] LABS: Creatine Kinase 678 U/L (30-135)
[2023-12-13 05:40] LABS: Alanine Aminotransferase 32 IU/L (<35); Albumin 2.7 g/dL (3.5-5.0); Albumin Globulin Ratio 0.9 (1.0-2.8); Alkaline Phosphatase 38 U/L (38-126); Aspartate Aminotransferase 57 IU/L (14-36); BUN Creatinine Ratio 20.4 (6-22); Bilirubin Total 0.7 mg/dL (0.2-1.3); Blood Urea Nitrogen 10 mg/dL (7-17); Calcium 8.7 mg/dL (8.4-10.2); Carbon Dioxide 22 mmol/L (22-32); Chloride 111 mmol/L (98-107); Estimated Glomerular Filt Rate > 60 mL/min (>60); Glucose 94 mg/dL (80-110); HEMOLYSIS < 15 (0-50); Potassium 3.2 mmol/L (3.4-5.1); Sodium 135 mmol/L (137-145); Total Protein 5.7 g/dL (6.3-8.2)
[2023-12-13 05:50] LABS: Troponin I 0.038 ng/mL (0.01-0.034)
[2023-12-13] MEDS: SODIUM CHLORIDE 0.9% 1,000 ML 125 ML IV (06:20)
[2023-12-13 07:00] VITALS: BP 157/76; PULSE 73; RESP 16; TEMP 37.2; O2SAT 99
[2023-12-13] MEDS: PANTOPRAZOLE 40 MG VIAL 20 MG IV (08:14)
[2023-12-13] MEDS: POTASSIUM CHLORIDE IN WATER 10 MEQ/100 ML PIGGYBACK 100 MEQ IV ×4 (08:14→13:27)
--- NOTE | 2023-12-13 09:43 | OT.IP.EVAL ---
Addendum entered and electronically signed by Ivania Kaplan OT 12/13/23 12:23: add for signature Original Note: 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) Occupational Therapy Inpatient Evaluation/Re-Eval M1 PT/OT-IP Prior Functional Status Start: 12/12/23 07:54 Freq: NEEDED Status: Active Protocol: Document 12/13/23 12:08 CGR (Rec: 12/13/23 12:21 CGR [id number]) Medical Review Prior Functional Status Medical History Reviewed Yes Communication Unsure baseline communication and diet Mobility and Gait Pt states that she was ambulating without AD at baseline. Activities of Daily Living and IADL's Friend reports pt has had a personality change, used to be social and has been at home with the blinds closed. Her keys were lost. She had friends/neighbors assist with shopping. She has a dog. Friend reports concern about pt driving. She states there had been discussion about assisted living. Pt states that she was IND in all ADLs and dosen't use DME. She states her neighbors assist with grocery shopping on occasion but that she still drives. Social History Household Members none Living Arrangements Apartment/Condo Number of Floors (Floors) One Floor Number of Stairs To Enter/Railing? No steps Home Environment Standard Height Toilet Home Equipment Straight Cane Employment Status Retired Additional Social History Comment Pt cannot answer PLOF questions and friend/neighbor assists with some questions M2 OT-IP Current Condition Start: 12/13/23 12:08 Freq: Status: Active Protocol: Document 12/13/23 12:08 CGR (Rec: 12/13/23 12:21 CGR [id number]) Occupational Therapy Current Condition Current Condition Evaluation Date 12/13/23 Treatment Diagnosis found down, recent change in personality Diagnosis Onset Date 12/11/23 M3 OT- IP Subjective and Pain Start: 12/13/23 12:08 Freq: Status: Active Protocol: Document 12/13/23 12:08 CGR (Rec: 12/13/23 12:21 CGR [id number]) OT- Subjective Occupational Therapy Visit Type Type Initial Evaluation Visit Start Time 09:20 Visit Stop Time 09:43 Total Visit Minutes 23 Notes Pt declines most activities but was encouraged to sit EOB. Occupational Therapy Visit Comments Patient Comments I really don't want to do anything OT Pain Assessment Pain When Pain Assessed At Rest Pain Present Pain Present Pain Reported Location Left Shoulder Scale Used did not rate Management Techniques Modification of Treatment,Re- positioning neck Scale Used did not rate Pain Behaviors Guarding Management Techniques Modification of Treatment,Re- positioning M4 OT- IP ADL's Start: 12/13/23 12:08 Freq: Status: Active Protocol: Document 12/13/23 12:08 CGR (Rec: 12/13/23 12:21 CGR [id number]) OT [id number] Comments OT Self-Feeding Comments not meal time OT ADL-Grooming Comments OT Grooming Comments not performed, pt declined OT ADL-Oral Care Comments Oral Care Comments not performed, pt declined OT ADL-Dressing General Eval Lower Body Dressing Ability Total Assistance Areas Needing Assistance Socks OT ADL-Toileting Comments OT Toileting Comments not performed, pt declined OT ADL-Bathing Comments OT Bathing Comments not performed M5 OT- IP IADL's Start: 12/13/23 12:08 Freq: Status: Active Protocol: Document 12/13/23 12:08 CGR (Rec: 12/13/23 12:21 CGR [id number]) OT-Instrumental Activities of Daily Living Deficits IADL Deficits Identified Deficits Home Safety Awareness Awareness of Need for Assistance at Home Decreased Awareness Ability to Problem Solve Emergency Unable to Problem Solve Situations Medication Management Medication Management Comments concerns regarding pts ability to perform Money Management Money Management Comments concerns regarding pts ability to perform Meal Preparation Meal Preparation Comments concerns regarding pts ability to perform Color Strainer Color Strainer Comments concerns regarding pts ability to perform Driving Driving Comments concerns regarding pts ability to perform as pt drives at baseline M6 OT- IP Functional Cognition Start: 12/13/23 12:08 Freq: Status: Active Protocol: Document 12/13/23 12:08 CGR (Rec: 12/13/23 12:21 CGR [id number]) Cognitive Factors Limiting Selfcare Function Cognitive Ability Level of Alertness Alert Patient Orientation Name,Age,Birthday,Month,Date, Year,Day of Week,Situation Attention Span Ability Capable of Focused Attention, Capable of Sustained Attention Ability to Follow Commands Able to Follow One Step Commands with Increased Time, Able to Follow One Step Commands with Repetition Cognitive Comments Cognitive Assessment Comments Pt would benefit from formal cog assessment OT- Vision and Hearing OT- Hearing Assessment OT- Hearing Assessment WFL OT- Vision Assessment Visual Attentiveness WFL Occular Pursuits WFL M7 OT- IP Mobility and Balance Start: 12/13/23 12:08 Freq: Status: Active Protocol: Document 12/13/23 12:08 CGR (Rec: 12/13/23 12:21 CGR [id number]) OT- Bed Mobility Assessment Supine to Sit Supine to Sit Assist Maximum Assistance Sit to Supine Sit to Supine Assist Standby Assistance Scooting Scooting Up and Down in Bed Standby Assistance OT-Transfer Assessment Comments Mobility Comments Pt refused OOB activities. OT- Balance Assessment Sitting Balance and Reactions Static Sitting Balance Ability Good Dynamic Sitting Balance Ability Good M8 OT- IP Objective Assessments Start: 12/13/23 12:08 Freq: Status: Active Protocol: Document 12/13/23 12:08 CGR (Rec: 12/13/23 12:21 CGR [id number]) OT Gross Range of Motion Upper Extremity Range of Motion ROM Impairments B shld impairments but L shld impairment 0-30 with pain. OT Strength Upper Extremity Strength Assessment Within Functional Limits Comments Strength Comments per MMT grossly 3+/5 but pt demonstrates better strength with mobility then demonstrated with MMT. OT- Coordination Assessment Upper Extremity Finger to Nose Test Left UE Impaired Finger Tapping Test Within Functional Limits OT-Muscle Tone Assessment Muscle Tone WNL Yes OT Sensation Assessment Edema Edema Absent M9 OT- IP Assessment and Plan Start: 12/13/23 12:08 Freq: Status: Active Protocol: Document 12/13/23 12:08 CGR (Rec: 12/13/23 12:21 CGR [id number]) OT Summary Assessment and Plan Potential Rehabilitation Potential Fair Analytic Complexity at Evaluation High Summary OT Impairments Pain,Strength,Balance, Coordination,Functional Cognition,Functional Mobility, Grooming,Dressing,Toileting, Bathing,Toilet Transfers, Shower Transfers,Activity Tolerance Progress Towards Goals Slow Progress due to Medical Issues,Slow Progress due to Activity Tolerance,Slow Progress due to Cognition Assessment Summary Pt presents as a high complexity evaluation s/p admit for fall and found down. Pt appears slightly confused but was able to answer simple questions in todays session. Pt appear more able when motivated then for general testing. Pt will benefit from SNF vs home depending on her progress. At this time pt would not be a safe discharge home. Goals Grooming Goal Independent Dressing Goal Independent Toileting Goal Independent Bathing Goal Independent Toilet Transfer Goal Independent Shower Transfer Goal Independent Days to Meet Goals 20 Frequency of Treatment Frequency Of Treatment Once a Day Treatment Plan OT Treatment Plan ADL Training,Functional Cognition Training,Functional Mobility,Patient/Family Education,Discharge Planning Other Treatment Recommendations and Next cog assessment, simple ADLs, Treatment Focus transfer to chair. Discharge Recommendations OT Discharge Recommendations Home vs SNF Transportation Needs at Discharge Wheelchair/Cabulance
--- NOTE | 2023-12-13 10:00 | DI.RAD.S_ITS ---
PROCEDURE: FL BARIUM SWALLOW INDICATIONS: pneumomediastinum r/o esophageal injury COMPARISON: [facility], CT, CT CHEST ABD PEL W CON, 12/12/2023, 11:40. FINDINGS: No esophageal leak. Esophageal motility is within normal limits. IMPRESSION: No esophageal leak. Dictated by: Cory Villa M.D. on 12/13/2023 at 13:20 Approved by: Cory Villa M.D. on 12/13/2023 at 13:21
--- NOTE | 2023-12-13 11:09 | PT-IP ANOTE ---
Treatment withheld due to upcoming echo.
--- NOTE | 2023-12-13 11:24 | DI.ECHO.S_ITS ---
[facility]---------+ [facility] +---------+ : : [address] : : : : [id number] : : : : Phone: [phone]---------+ Echocardiogram Report + + :Name: JOVAN MORGAN Study Date: 12/13/2023 Height: 67 in : :[facility] ReadingLocation: Weight: 111 lb : : Gender: Female BSA: 1.6 m2 : :: 1950 Age: 73 yrs BP: 131/71 mmHg: :Reason For Study: Elevated Troponin : : Performed By: Lynsey Soto : :Referring: KATELYNN HERNÁNDEZ : + + Interpretation Summary The ejection fraction is estimated to be 60-65%. Grade II diastolic dysfunction. The right ventricle grossly appears normal in size with probable normal systolic function. The right ventricular systolic pressure is estimated to be at least 54 mmHg based on an estimated right atrial pressure of 15 mm Hg. The left atrium is severely dilated. There is mild to moderate pulmonic regurgitation. Procedure: A two-dimensional transthoracic echocardiogram with color flow and Doppler was performed. The study quality was technically good. Comparison is made with the echocardiogram of 08-18-23. The heart rate ranged between 74- 77 bpm during the study. Left Ventricle: The left ventricle is normal in size and wall thickness. The ejection fraction is estimated to be 60-65%. There are no obvious focal wall motion abnormalities noted but poor endocardial definition reduces the sensitivity for the detection of such. Grade II diastolic dysfunction. Right Ventricle: The right ventricle grossly appears normal in size with probable normal systolic function. Atria: The left atrium is severely dilated. Right atrial size is normal. The interatrial septum grossly appears intact with no obvious evidence for an atrial septal defect. Mitral Valve: The mitral valve leaflets appear mildly thickened, but open well. There is trace mitral regurgitation. Aortic Valve: The aortic valve is trileaflet. The aortic valve opens well. There is mild aortic valve sclerosis. There is no hemodynamically significant valvular aortic stenosis. There is trace aortic regurgitation. Tricuspid Valve: The tricuspid valve leaflets are thin and pliable. The tricuspid valve leaflets are thickened and/or calcified, but open well. There is a trace or physiologic amount of tricuspid regurgitation. The right ventricular systolic pressure is estimated to be at least 54 mmHg based on an estimated right atrial pressure of 15 mm Hg. Pulmonic Valve: The pulmonic valve is not well seen, but is grossly normal. There is mild to moderate pulmonic regurgitation. Great Vessels: The aortic root is normal size. The ascending aorta is at the upper limits of normal in size. The aortic arch is normal in size. The IVC is dilated (diameter is greater than 2.1 cm) and it collapses less than 50% with a sniff. This suggests a high right atrial pressure of 15 mm Hg. Pericardium/ Pleura There is no pericardial effusion. There is no pleural effusion. MMode/2D Measurements & Calculations LVIDd: 4.4 cm LVOT diam: 1.8 cm LVIDs: 2.9 cm Ao root diam: 3.2 cm FS: 34.3 % asc Aorta Diam: 3.4 cm EPSS: 0.70 cm Ao Arch Diam (Prox Trans): 2.3 cm IVSd: 0.89 cm LVPWd: 0.86 cm LV horton. diameter/BSA (cm/m^2): 2.8 LV sys. diameter/BSA (cm/m^2): 1.8 LA A2 area: 22.7 cm2 RA long axis: 4.3 cm LA A4 area: 19.0 cm2 RA area: 13.6 cm2 LA length (vol): 4.9 cm RA vol: 36.8 ml LA vol: 74.2 ml RA : 23.4 ml/m2 LA vol index: 47.1 ml/m2 IVC diam: 2.4 cm RVD1 (basal): 3.4 cm Doppler Measurements & Calculations Ao V2 max: 155.0 cm/sec LVOT Max Micah: 99.6 cm/sec Ao V2 mean: 105.6 cm/sec LV V1 max P.0 mmHg Ao max P.6 mmHg LV V1 VTI: 22.4 cm Ao mean P.1 mmHg PABLO(I,D): 1.6 cm2 Ao V2 VTI: 33.8 cm PABLO(V,D): 1.6 cm2 sev ratio: 0.66 PABLO indexed to BSA (cm^2/m^2): 1.0 MV E max micah: 85.6 cm/sec TR max micah: 299.0 cm/sec MV A max micah: 116.4 cm/sec TR max P.8 mmHg MV E/A: 0.74 PA V2 max: 75.5 cm/sec Med Peak E' Micah: 5.3 cm/sec PA V2 mean: 52.5 cm/sec E/E' med: 16.1 PA mean P.3 mmHg Lat Peak E' Micah: 6.5 cm/sec PA pr(Accel): 22.5 mmHg E/E' lat: 13.1 E/e' average: 14.6 MV dec time: 0.18 sec SV(LVOT): 54.0 ml Reading Physician:ALLI
--- NOTE | 2023-12-13 12:28 | CM.DPNOTE ---
DCP Note DUMPMAN reviewed EMR. received call from friend/future POJulianne Alvarez (p [phone]). Kim reported that the person pt's dog is staying with at this time can only watch him until Wednesday. Per Kim, this dog's wellbeing is critical to pt's mental/emotional health and it would be detrimental to her recovery if there was not a safe plan for dog. Kim reports that in order for pt's dog to have emergency foster placement with [facility] (Saving pets one at a time) a watch case polisher or social insurance administrator needs to make referral/request. This DUMPMAN agreed to contact agency on pt and her behalf. Kim reports dog is Long, 7yr old M neutered yorkie/pom mix. Roughly 10lbs. Good with other dogs/cats, no small children. No known behavioral concerns, gets nervous and hides when scared. Is not update to date on vaccines but Kim is willing to front cost with vaccines, established with Dr Jiménez in [place]. DUMPMAN coordinated with Azalia at [facility] (p [phone] email [email or web address]). Azalia reports their emergency medical boarding program is connected with [facility] in [place]. They pay for one month of boarding. either pt or veterans service representative would have to sign an agreement that they are financial responsible for dog's medical needs while there and that they agree to pick him up after one month. Or, after a month, they could contact [facility] about surrendering dog at that time. DUMPMAN emailed Azalia for further contact information as well as provided her with Kim's contact, per Kim's permission. DUMPMAN updated Kim on [facility] referral. Kim reports pt would be in extreme distress to know her dog was in a kennel and would continue to attempt to find friends to foster Long. DUMPMAN directed Kim to [facility] to see if they have any leads on emergency fostering for dogs. Kim said she would pursue that. Plan: please see additional DCP notes for updates on DCP for patient. CM team will continue to assist with emergency foster dog placement as needed. SREEDHAR Renteria
--- NOTE | 2023-12-13 12:59 | P.PN_ITS ---
Subjective Subjective Date Patient Seen: 12/13/23 Time Patient Seen: 12:15 Interval history: Patient is seen for interval follow up. She is admitted for fall, weight loss, and memory changes. Today she is confused. She thinks she has been in the hospital for the past two weeks. She thinks the the year is 2000 something. She is hoping to have a visit from her neighbor Desiree. She feels like she has to pee. She has no pain or other complaints. Exam Vital Signs (past 8 hours): - 12/13/23 07:00 Temperature 98.9 F Pulse Rate 73 Respiratory Rate 16 Blood Pressure 157/76 H Pulse Oximetry 99 Oxygen Flow Rate 0 Oxygen Delivery Method Room Air Oxygen Flow Rate 0 Narrative Exam Narrative: Alert thin female, NAD. Confusion. Lungs are clear to auscultation bilaterally. Heart is regular rate and rhythm. Objective Labs 12/13/23 05:04 12/13/23 05:04 Labs: Laboratory Results - last 24 hr 12/12/23 12/12/23 12/13/23 05:18 19:30 05:04 WBC 3.4 L RBC 2.90 L Hgb 9.5 L Hct 27.4 L MCV 94.6 MCH 32.9 MCHC 34.8 RDW 13.9 Plt Count 82 L Neut % (Auto) 66.7 Lymph % (Auto) 22.5 L [place] % (Auto) 7.0 Eos % (Auto) 2.6 Baso % (Auto) 1.2 Neut # (Auto) 2200 Lymph # (Auto) 800 L [place] # (Auto) 200 Eos # (Auto) 100 Baso # (Auto) 0 Sodium 135 L Potassium 3.2 L Chloride 111 H Carbon Dioxide 22 BUN 10 Creatinine 0.49 L Estimated GFR > 60 BUN/Creatinine Ratio 20.4 Glucose 94 Calcium 8.7 Total Bilirubin 0.7 AST 57 H ALT 32 Alkaline Phosphatase 38 Total Creatine Kinase 900 H 678 H Troponin I 0.050 H 0.038 H Total Protein 5.7 L Albumin 2.7 L Globulin 3.0 Albumin/Globulin Ratio 0.9 L Vitamin B12 462 Folate 7.4 PFSH Family History Mother Heart disease Hypertension Stroke Social History household members: none Smoking Status: Never smoker alcohol intake: never Assessment & Plan Assessment and plan (1) Pneumomediastinum: Status: Acute (2) Non-ST elevation [place] (NSTEMI): Status: Acute (3) Elevated CK: Status: Acute (4) Fall: Qualifiers: Encounter type: initial encounter Qualified Code(s): W19.XXXA - Unspecified fall, initial encounter Status: Acute (5) Cognitive decline: Status: Acute (6) Weight loss: Status: Acute Assessment & Plan narrative: Elevated troponin. No EKG changes, no patient complains. Downtrending. Likely from the rhabdo. Echo discussed with Dr. Packer, cone picker bookkeeping machine operator, no concerning findings. Echo changes likely 2/2 to hypertension. Hypokalemia. Oral replacement. Daily labs. Anemia. FIT test to rule out GI etiology. b12/folate normal. Continue Protonix until stool occult blood or FIT test completed. Pneumomediastinum. Noted on CT. esophagram without esophageal leak or other pathology. Incidental finding. Surgery signed off. Weight loss. Etiology is unclear. CT scan showed pneumomediastinum that was found to be incidental on esophagram. Multiple spiculated subpleural nodules noted. Will reach out to pul for further guidance. Memory changes. Possible depression vs dementia. Will have speech perform cognitive eval. Brain MRI without acute or subacute infarction. Age-appropriate brain parenchymal volume loss and chronic small vessel ischemic changes. Will likely need placement. Shoulder pain. Will obtain x-ray. Follow from there. I do not think we have to do anything definitive right now. Left hand pain. Normal exam. Maybe from the fall she is having some numbness. Neck x-rays are normal, will continue to follow. Multiple contusions. From fall. No evidence of fractures but will need to follow closely. PT. DVT prophylaxis. Daily lovenox. GI prophylaxis on medication Code status DNI DNR Disposition. Pending ongoing anemia and hypokalemia. Suspect she will need placement for significant cognitive decline.
--- NOTE | 2023-12-13 13:33 | DI.MRI.S_ITS ---
PROCEDURE: MR HEAD/BRAIN WO CON INDICATIONS: rapid cognitive decline TECHNIQUE: Non-contrast axial T1 spin echo, axial T2 fast spin echo, sagittal and axial FLAIR, coronal T2 fast spin echo, axial gradient echo, axial diffusion and ADC through the brain. COMPARISON: [facility], CT, CT HEAD/BRAIN WO CON, 12/11/2023, 13:33. FINDINGS: Image quality: The patient was unable to tolerate the standard head coil, with compromised image quality. Furthermore, the patient was unable to tolerate the complete examination and terminated the examination before contrast could be given. This study is limited by motion artifact. CSF spaces: Ventricles appear symmetric in size and shape. Basal cisterns are patent. No extra-axial fluid collections. Brain: No intracranial bleeds or mass effects. There is cerebral volume loss for age. There are periventricular and deep white matter chronic small vessel ischemic changes. Brainstem appears normal. Diffusion-weighted images show no acute infarct. No chronic ischemic insults. Normal intravascular flow voids are present. Skull and face: Calvarial bone marrow is normal in signal. Orbits are normal. Incidental note is made of hyperostosis frontalis. This is not considered to be pathologic in a woman of this age. Sinuses: Sinuses and mastoids are clear. IMPRESSION: No findings of acute or subacute infarction can be seen. Highly limited study. Note is made of age-appropriate brain parenchymal volume loss and chronic small vessel ischemic changes. Dictated by: Art Atkins M.D. on 12/13/2023 at 14:21 Approved by: Art Atkins M.D. on 12/13/2023 at 14:22
--- NOTE | 2023-12-13 15:16 | CM.DPNOTE ---
Addendum entered by SREEDHAR Renteria 12/13/23 15:56: Cherie at [facility] reported she would hold off on officially accepting or denying referral due to her wanting pt to be closer to her supports in [place]. PARKING METER ATTENDANT lvm with Lilian from , no update on if [facility] could accept. Patient/Friend preference seems to be closer to [place], the better. SL Original Note: DCP Note PARKING METER ATTENDANT reviewed EMR. PN in draft at this time, unclear when pt will be medically stable to dc. PARKING METER ATTENDANT had lengthy conversation with pt at bedside. Pt much more logical and alert today than the day prior, however, was still confused. Pt reports being open to SNF for rehab but being unsure what the fdc plan was for her. Reports she's open to fdc placement. Pt says she wants friend Kim to be her medical POA. Pt reports being hopeful of getting stronger with therapy. PARKING METER ATTENDANT spoke with Charley at . Reported what Kim and Nat said yesterday, that they were planning on [facility] today for pt and that they had the assistance from the [facility] nephrology social worker Karen for interior assemblies developer prover planning as well. PARKING METER ATTENDANT told Charley that friend Kim was working on becoming POA. Charley reported that if there was steps in place for the interior assemblies developer prover plan she likely would be able to accept pt. Charley reported concerns about PASRR likely needing level 2 eval- it appears that pt's depression medication was stopped? PARKING METER ATTENDANT informed Charley there was not a clear dc timeline currently. PARKING METER ATTENDANT met with Kim and pt at bedside, informed them [facility] will likely be able to accept. Pt and friend appreciative. Plan: pt will likely dc to [facility] when medically stable, CM team will continue to follow closely. PASRR needed. SREEDHAR Renteria
[2023-12-13] MEDS: FLUCONAZOLE 200 MG/100 ML PIGGYBACK 100 MG IV (15:53)
--- NOTE | 2023-12-13 16:32 | PM.PN.1 ---
Subjective Subjective Date Patient Seen: 12/13/23 Interval history: No new complaints today. Esophagram shows no evidence of esophageal leak or other pathology. Exam Vital Signs (past 8 hours): Oxygen Delivery Method Room Air Oxygen Flow Rate 0 Const General: No acute distress Objective Labs 12/13/23 05:04 12/13/23 05:04 Labs: Laboratory Results - last 24 hr 12/12/23 12/13/23 19:30 05:04 WBC 3.4 L RBC 2.90 L Hgb 9.5 L Hct 27.4 L MCV 94.6 MCH 32.9 MCHC 34.8 RDW 13.9 Plt Count 82 L Neut % (Auto) 66.7 Lymph % (Auto) 22.5 L [place] % (Auto) 7.0 Eos % (Auto) 2.6 Baso % (Auto) 1.2 Neut # (Auto) 2200 Lymph # (Auto) 800 L [place] # (Auto) 200 Eos # (Auto) 100 Baso # (Auto) 0 Sodium 135 L Potassium 3.2 L Chloride 111 H Carbon Dioxide 22 BUN 10 Creatinine 0.49 L Estimated GFR > 60 BUN/Creatinine Ratio 20.4 Glucose 94 Calcium 8.7 Total Bilirubin 0.7 AST 57 H ALT 32 Alkaline Phosphatase 38 Total Creatine Kinase 900 H 678 H Troponin I 0.050 H 0.038 H Total Protein 5.7 L Albumin 2.7 L Globulin 3.0 Albumin/Globulin Ratio 0.9 L PFSH Family History Mother Heart disease Hypertension Stroke Social History household members: none Smoking Status: Never smoker alcohol intake: never Assessment & Plan Assessment and plan (1) Pneumomediastinum: Status: Acute Plan No evidence of esophageal pathology. Pneumomediastinum is likely an incidental finding with no clinical significance. Please recontact surgery if further surgical issues remain.
[2023-12-13 20:00] VITALS: O2SAT 93
[2023-12-13 20:20] VITALS: BP 157/90; PULSE 83; RESP 16; TEMP 36.9; O2SAT 93
--- NOTE | 2023-12-14 01:05 | PC.NURSE ---
Ngo catheter leaking around cath after checking balloon and reinserting 10ml in balloon. DC'd ngo and placed purewick.
[2023-12-14] MEDS: PIPERACILLIN/TAZO 3.375 GM in SODIUM CHLORIDE 0.9% 100 ML IV (03:44)
[2023-12-14] MEDS: ACETAMINOPHEN 325 MG TABLET 650 MG PO (03:48)
[2023-12-14 07:00] VITALS: BP 153/83; PULSE 77; RESP 16; TEMP 36.2; O2SAT 98
[2023-12-14 08:20] VITALS: O2SAT 98
[2023-12-14] MEDS: PANTOPRAZOLE 40 MG VIAL 20 MG IV (09:07)
[2023-12-14] MEDS: POTASSIUM CHLORIDE 20 MEQ TAB 40 MEQ PO ×2 (09:11→17:03)
--- NOTE | 2023-12-14 10:13 | OT.IP.TRT ---
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) Other symptoms and signs involving cognitive functions and awareness (12/11/23) Abnormal weight loss (12/11/23) Abnormal levels of other serum enzymes (12/11/23) Unspecified fall, initial encounter (12/11/23) Occupational Therapy Treatment Note M2 OT-IP Current Condition Start: 12/13/23 12:08 Freq: Status: Active Protocol: Document 12/13/23 12:08 CGR (Rec: 12/13/23 12:21 CGR [id number]) Occupational Therapy Current Condition Current Condition Evaluation Date 12/13/23 Treatment Diagnosis found down, recent change in personality Diagnosis Onset Date 12/11/23 M3 OT- IP Subjective and Pain Start: 12/13/23 12:08 Freq: Status: Active Protocol: Document 12/14/23 10:16 CCC (Rec: 12/14/23 10:30 [facility] [id number]) OT- Subjective Occupational Therapy Visit Type Type Treatment Note Visit Start Time 09:15 Visit Stop Time 10:13 Total Visit Minutes 58 Occupational Therapy Visit Comments Patient Comments Pt wanting to get up to try to use the BSC as feeling very constipated. Patient/Caregiver Goals TO get better. OT Pain Assessment Pain When Pain Assessed At Rest Pain Present Pain Present Pain Reported Location Right Ear Intensity 4 Scale Used Numeric (0 - 10) Description Throbbing M4 OT- IP ADL's Start: 12/13/23 12:08 Freq: Status: Active Protocol: Document 12/14/23 10:16 CCC (Rec: 12/14/23 10:30 [facility] [id number]) OT ADL-Grooming General Evaluation Grooming Ability Minimal Assistance Areas Needing Assistance Combing/Brushing Hair Comments OT Grooming Comments Needing assist for to de-tangle the back of her hair. OT ADL-Oral Care Comments Oral Care Comments Not performed. OT ADL-Dressing General Eval Lower Body Dressing Ability Moderate Assistance Areas Needing Assistance Underpants/Brief Comments OT Dressing Comments Assist to help get in the right foot into the brief and up over her hips. OT ADL-Toileting General Evaluation Toileting Ability Minimal Assistance,Moderate Assistance Areas Needing Assistance Manage Clothing,Perform Perineal Hygiene Comments OT Toileting Comments Assist for completeness to wipe. Pt is very constipated normally per pt and has to use her fingers to assist to get her feces out. OT ADL-Bathing Comments OT Bathing Comments not performed M5 OT- IP IADL's Start: 12/13/23 12:08 Freq: Status: Active Protocol: Document 12/13/23 12:08 CGR (Rec: 12/13/23 12:21 CGR [id number]) OT-Instrumental Activities of Daily Living Deficits IADL Deficits Identified Deficits Home Safety Awareness Awareness of Need for Assistance at Home Decreased Awareness Ability to Problem Solve Emergency Unable to Problem Solve Situations Medication Management Medication Management Comments concerns regarding pts ability to perform Money Management Money Management Comments concerns regarding pts ability to perform Meal Preparation Meal Preparation Comments concerns regarding pts ability to perform Echocardiography Technologist Echocardiography Technologist Comments concerns regarding pts ability to perform Driving Driving Comments concerns regarding pts ability to perform as pt drives at baseline M6 OT- IP Functional Cognition Start: 12/13/23 12:08 Freq: Status: Active Protocol: Document 12/14/23 10:16 [facility] (Rec: 12/14/23 10:30 [facility] [id number]) Cognitive Factors Limiting Selfcare Function Cognitive Ability Memory Description Short Term Impaired Cognitive Comments Cognitive Assessment Comments Pt very forgetful and did not remember that her brief was pulled up or that initially the tab brief was saturated. Pt needing vc for hand placement for FWW safety awareness. M7 OT- IP Mobility and Balance Start: 12/13/23 12:08 Freq: Status: Active Protocol: Document 12/14/23 10:16 [facility] (Rec: 12/14/23 10:30 [facility] [id number]) OT- Bed Mobility Assessment Supine to Sit Supine to Sit Assist Minimal Assistance Sit to Supine Sit to Supine Assist Contact Guard Assistance Scooting Scooting to Edge of Bed Standby Assistance OT-Transfer Assessment Sit to and From Stand Sit to and from Stand Minimal Assistance Transfers Transfer Ability Minimal Assistance Technique Transfer Destination Bed,Bedside Commode Transfer Technique Stand Step Pivot Devices Transfer Assistive Devices Gait Belt,Front Wheeled Walker Comments Mobility Comments ANIL to help get her trunk upright , ANIL assist to stand and vc to push up from the bed to stand. ANIL for balance for the FWW and safety cues for hand placement. Encouraged pt call for assist to get up to use the bathroom as the movement may help her constipation. OT- Balance Assessment Sitting Balance and Reactions Static Sitting Balance Ability Good Dynamic Sitting Balance Ability Fair Standing Balance and Reactions Static Standing Balance Ability Fair Dynamic Standing Balance Ability Fair Comments Other Balance Tests/Deviations/Treatment Pt needing CGA for dynamic : balance while trying to get her right foot into the brief. M8 OT- IP Objective Assessments Start: 12/13/23 12:08 Freq: Status: Active Protocol: Document 12/13/23 12:08 CGR (Rec: 12/13/23 12:21 CGR [id number]) OT Gross Range of Motion Upper Extremity Range of Motion ROM Impairments B shld impairments but L shld impairment 0-30 with pain. OT Strength Upper Extremity Strength Assessment Within Functional Limits Comments Strength Comments per MMT grossly 3+/5 but pt demonstrates better strength with mobility then demonstrated with MMT. OT- Coordination Assessment Upper Extremity Finger to Nose Test Left UE Impaired Finger Tapping Test Within Functional Limits OT-Muscle Tone Assessment Muscle Tone WNL Yes OT Sensation Assessment Edema Edema Absent M9 OT- IP Assessment and Plan Start: 12/13/23 12:08 Freq: Status: Active Protocol: Document 12/14/23 10:16 [facility] (Rec: 12/14/23 10:30 [facility] [id number]) OT Summary Assessment and Plan Potential Rehabilitation Potential Fair Analytic Complexity at Evaluation High Summary OT Impairments Pain,Strength,Balance, Coordination,Functional Cognition,Functional Mobility, Grooming,Dressing,Toileting, Bathing,Toilet Transfers, Shower Transfers,Activity Tolerance Progress Towards Goals Progressing Toward Goals,Slow Progress due to Cognition Assessment Summary Pt not aware of the day ,year, or realize that her brief was wet. Pt able to use the BSC with assist for transfer and hygiene needs. Pt will benefit from skilled rehab prior to going home. However pending how she mentally clears- would benefit from assist at home. Goals Grooming Goal Independent Dressing Goal Independent Toileting Goal Independent Bathing Goal Independent Toilet Transfer Goal Independent Shower Transfer Goal Independent Days to Meet Goals 19 Frequency of Treatment Frequency Of Treatment Once a Day Treatment Plan OT Treatment Plan ADL Training,Functional Cognition Training,Functional Mobility,Patient/Family Education,Discharge Planning Other Treatment Recommendations and Next Fitzgerald Making Part B, shower Treatment Focus Discharge Recommendations OT Discharge Recommendations SNF Rehab Transportation Needs at Discharge Wheelchair/Cabulance
--- NOTE | 2023-12-14 10:32 | PT.IPTN ---
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) Other symptoms and signs involving cognitive functions and awareness (12/11/23) Abnormal weight loss (12/11/23) Abnormal levels of other serum enzymes (12/11/23) Unspecified fall, initial encounter (12/11/23) Physical Therapy Treatment Note M2 PT-IP Current Condition Start: 12/12/23 07:54 Freq: NEEDED Status: Active Protocol: Document 12/12/23 08:48 MB (Rec: 12/12/23 09:44 MB [id number]) Physical Therapy Current Condition Current Condition Evaluation Date 12/12/23 Treatment Diagnosis Fall under bed, confusion M3 PT-IP Subjective Start: 12/12/23 07:54 Freq: NEEDED Status: Active Protocol: Document 12/14/23 13:12 TS (Rec: 12/14/23 13:38 TS [id number]) Subjective Physical Therapy Visit Type Type Treatment Note Visit Start Time 10:32 Visit Stop Time 11:00 Total Visit Minutes 28 Number of DISPATCHER SERVICE CHIEF Visits 1 Physical Therapy Visit Comments Patient Comments Pt found resting in bed, friend in room, pt reports feeling better today but still weak. Pt is agreeable to PT. M4 PT-IP Mobility and Gait Start: 12/12/23 07:54 Freq: NEEDED Status: Active Protocol: Document 12/14/23 13:12 TS (Rec: 12/14/23 13:38 TS [id number]) PT-Bed Mobility Assessment Supine to Sit Supine to Sit Contact Guard Assistance,1 Person Assistance,Head of Bed Elevated Sit to Supine Sit to Supine Minimal Assistance,1 Person Assistance Scooting Scooting to Edge of Bed Contact Guard Assistance PT-Transfer Assessment Sit to and From Stand Sit to and from Stand Minimal Assistance,1 Person Assistance,Use of Upper Extremities Equipment Transfer Assistive Device Gait Belt,Front Wheeled Walker Orthotic/Prosthetic Devices or Brace: No Comments Mobility Comments Supine to sit CGA with HOB elevated, pt is slow to sit up with some difficulty. STS from bed Luba with use of FWW. She ambulated in room ~25' CGA/SBA with FWW, pt has slow step to gait, fatigues quickly requested back to bed. Sit to supine into bed Luba for LEs. Pt was left in bed, all needs met. Gait Assessment Gait Gait Assistance Required: Standby Assistance,Contact Guard Assist,1 Person Assist Distance (Feet) 25 Able to Maintain Weight Bearing Status Yes During Gait Assistive Devices Assistive Device Gait Belt,Front Wheeled Walker Orthotic/Prosthetic Devices or Brace: No Gait Deviations General Gait Pattern Antalgic,Decreased Stride Length,Decreased Feet Clearance,Flexed Trunk,Wide Based Gait Factors Limiting Gait Function Factors Limiting Gait Function Decreased Activity Tolerance, Decreased Strength,Difficulty Following Directions,Pain,Poor Balance,Poor Safety Awareness Comments Gait Comments See mobility comments PT-Balance Assessment Sitting Balance and Reactions Static Sitting Balance Ability Good Dynamic Sitting Balance Ability Fair Standing Balance and Reactions Static Standing Balance Ability Fair Dynamic Standing Balance Ability Fair Device Used RW M5 PT-IP Objective Assessments Start: 12/12/23 07:54 Freq: NEEDED Status: Active Protocol: Document 12/12/23 08:48 MB (Rec: 12/12/23 09:44 MB [id number]) Orientation Orientation/Cognition Level of Alertness Confusional State Orientation Name,Birthday,Place Safety Awareness Decreased Safety Awareness Memory Description Short Term Impaired,Penitentiary Impaired Comments Pt is hypoverbal Gross Range of Motion Upper Extremity ROM Assessment Left Impaired Lower Extremity ROM Assessment Bilaterally Impaired Strength Comments Strength Comments Pt does not follow commands for any MMT. She uses right hand to lift up left arm for PT to adjust hospital gown. Coordination Assessment Assessment Coordination Comments Cannot participate with this Sensation Assessment Comments Sensation Comments Cannot participate with sensory testing M7 PT-IP Assessment and Plan Start: 12/12/23 07:54 Freq: NEEDED Status: Active Protocol: Document 12/14/23 13:12 TS (Rec: 12/14/23 13:38 TS [id number]) PT Summary Assessment and Plan Potential Rehabilitation Potential Fair Summary Impairments Pain,ROM,Strength,Balance, Cognition,Bed Mobility, Transfers,Gait,Activity Tolerance Progress Towards Goals Slow Progress due to Medical Issues,Slow Progress due to Activity Tolerance Assessment Summary Elidia is making some progress with her mobility but remains limited by weakness and poor activity tolerance. She performed supine to sit CGA and sit to supine Luba for LEs into bed. She progressed her gait to ~25' SBA/CGA, she fatgues quickly with ambulation. PT continues to recommend SNF rehab at this time to progress pt's strength and independence before returning home. Goals Bed Mobility Goal Standby Assistance Transfer Goal Standby Assistance,Front Wheeled Walker Gait Goal Standby Assistance,Front Wheel Walker Gait Distance 75 Days to Meet Goals 5 Frequency of Treatment Frequency Of Treatment Once a Day Treatment Plan Physical Therapy Treatment Plan Bed Mobility Training,Transfer Training,Gait Training, Therapeutic Exercise,Balance Retraining,Discharge Planning Weight Bearing Status Weight Bearing Status Weight Bear as Tolerated Recommendations To Nursing Amount of Assist Needed 1 Person Assist Discharge Recommendations PT Discharge Recommendations SNF Rehab Transportation Needs at Discharge Wheelchair/Cabulance
--- NOTE | 2023-12-14 12:39 | P.PN_ITS ---
Subjective Subjective Date Patient Seen: 12/14/23 Time Patient Seen: 12:15 Interval history: Patient reports feeling improved today. She is admitted for fall, weight loss, and cognitive decline. She remains confused but pleasant. She has assigned her neighbor Desiree to be her MDPOA. Desiree is here today. She is a retired L&D nurse. Exam Vital Signs (past 8 hours): - 12/14/23 07:00 12/14/23 08:20 Temperature 97.2 F L Pulse Rate 77 Respiratory Rate 16 Blood Pressure 153/83 H Pulse Oximetry 98 98 Oxygen Delivery Method Room Air Oxygen Flow Rate 0 Oxygen Delivery Method Room Air Oxygen Flow Rate 0 Narrative Exam Narrative: Alert thin female, NAD. Confusion present. Objective Labs 12/13/23 05:04 12/14/23 04:36 Labs: Laboratory Results - last 24 hr 12/14/23 04:36 Sodium 131 L Potassium 3.1 L Chloride 100 Carbon Dioxide 25 BUN 5 L Creatinine 0.44 L Estimated GFR > 60 BUN/Creatinine Ratio 11.4 Glucose 118 H Calcium 9.1 PFSH Family History Mother Heart disease Hypertension Stroke Social History household members: none Smoking Status: Never smoker alcohol intake: never Assessment & Plan Assessment and plan (1) Pneumomediastinum: Status: Acute (2) Elevated CK: Status: Acute (3) Non-ST elevation NE (NSTEMI): Status: Acute (4) Fall: Qualifiers: Encounter type: initial encounter Qualified Code(s): W19.XXXA - Unspecified fall, initial encounter Status: Acute (5) Cognitive decline: Status: Acute (6) Weight loss: Status: Acute (7) Depression: Qualifiers: Depression Type: major depressive disorder Major depression recurrence: single episode Active/Remission status: currently active Major depression episode severity: moderate Qualified Code(s): F32.1 - Major depressive disorder, single episode, moderate Status: Acute Plan Elevated troponin. No EKG changes, no patient complaints. Downtrending. Likely from the rhabdo. Echo discussed with Dr. Packer, personnel research psychologist convention manager, no concerning findings. Echo changes likely 2/2 to hypertension. Hypokalemia. Oral replacement. Daily labs. Anemia. FIT test to rule out GI etiology. b12/folate normal. Continue Protonix until stool occult blood or FIT test completed. Pneumomediastinum. Noted on CT. Esophagram without esophageal leak or other pathology. Incidental finding. Surgery signed off. Weight loss. Etiology is unclear. CT scan showed pneumomediastinum that was found to be incidental on esophagram. Multiple spiculated subpleural nodules noted. Continue mirtazapine. Memory changes. Possible depression vs dementia. Will have speech perform cognitive eval. Brain MRI without acute or subacute infarction. Age-appropriate brain parenchymal volume loss and chronic small vessel ischemic changes. Planning for SNF placement for strengthening and weight gain. Planning to find assisted living facility after SNF. Desiree, her friend and neighbor is designated MDPOA. Shoulder pain. Improved Left hand pain. Improved Multiple contusions. From fall. No evidence of fractures but will need to follow closely. PT. DVT prophylaxis. Daily lovenox. GI prophylaxis on medication Code status DNI DNR Disposition. Awaiting SNF placement at [facility] in next 24-48 hours.
--- NOTE | 2023-12-14 13:08 | CM.DPNOTE ---
DCP Cont Reviewed chart. Met w/patient and her friend/neighbor Kim Mcclendon [phone] at bedside. Patient had already completed DPOA ppk assigning her friend as DPOA, two witnesses required. Angelique Mackey-Edwin, DELIVERY MAN agreed to witness patient's signature w/this DELIVERY MAN. Copy of DPOA ppk taken for the chart, original back to patient and Kim. Reviewed discharge plan, patient agreeable to discharge to [facility]. Placed call to Miranda at [facility], they are contracted with patient's insurance. Once there are updated therapy notes in, Miranda will submit for SNF auth. According to Kim, Karen at [facility] has been guiding patient and friends through discussions re assisted care options. Friends plan to continue search for termite helper care options ie [facility] vs [facility] that would accept patient's dog. Patient would need to pay privately to start as she has approx $50,000+ in savings that would need to be spent down before being financial eligible for termite helper care Medicaid. Plan: Discharge to [facility] anticipated once authorization is in place. CM team following closely for coordination of discharge plan. UNA
--- NOTE | 2023-12-14 13:46 | ST.IPIE ---
Visit Care Team Role Provider Type Terrell Goins MD Other Providers Physician Specialty: General Surgery Address: [address] [place] [address], [facility] Email: [email or web address] Agustin DO Emergency Provider Physician Referring Provider Specialty: Emergency Medicine Address: [address] [place] [address], [facility] Email: [email or web address] Rox Munoz MD Attending Provider Physician Primary Care Provider Specialty: Family Practice Obstetrics Address: [address] [place] [address], [id number] Email: [email or web address] Spencer MD Admit Provider Physician Other Providers Specialty: Family Practice Address: [address] [place] [address], [place], [address] Email: [email or web address] 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) Other symptoms and signs involving cognitive functions and awareness (12/11/23) Abnormal weight loss (12/11/23) Abnormal levels of other serum enzymes (12/11/23) Unspecified fall, initial encounter (12/11/23) ST IP Initial Evaluation Report AC/DC REWINDER Adult Cognitive Linguistic Eval Start: 12/14/23 13:37 Freq: Status: Active Protocol: Document 12/14/23 13:37 CG (Rec: 12/14/23 13:46 CG [id number]) Adult Cognitive Linguistic Evaluation Session Time Visit Start Time 11:20 Visit Stop Time 11:50 Total Visit Minutes 30 Visit Information Visit Number 1 Referral Referring Provider Asmita Reason for Referral Cognition Setting Assessment Location Acute Care Visit Type Note Type Initial evaluation Next Note Type Next Note Type Discharge Summary Patient Information Identification Type Name Patient History Per H&P: Patient is a 73- year-old I am seeing in [facility] who I get history through friend and through her . Patient lives independently but has had difficulty over the last 3 months. Certainly since she had COVID several months ago apparently there has been a down turn. Patient is unsure what exactly happened and is quite confused about being in a small house but she fell and could not get up. Probably an unknown amount of hours before she was found by neighbors. She was on the floor. She does not know exactly what happened but she does feel like she maybe hit her head. She has no other significant change. Apparently she was treated with mirtazapine but she has not been on it on a consistent basis. She otherwise is having no current medicines no issues or complaints. No persistent issue apparently she has had 30 lb weight loss over the last few months. She was in the ER a month ago and had a CT scan of her abdomen which showed a narrowing and constipation possible colitis but has not been worked up further. Apparently she just does not eat. But she does not say it hurts does not say she has dysphagia. She has not had any blood in her stool she was constipated. But no other changes. No urinary changes. No fevers no chills no night sweats. She basically does not any unless she has issues. She is complaining of some hip pain and left arm pain which apparently has been longstanding. A little numbness in her left hand. Other than that she has no other significant change. Pt was referred to for cognitive assessment due to AMS, consideration for dementia. Occupation Status Retired Hearing Hearing Level Normal Previous Therapy Previous Speech-Language Therapy No Subjective Pain Scale Used Numeric (0 - 10) Assessment Oral Motor Examination Completed No Informal Assessment Receptive Language Normal No Receptive Language Impairment(s) Comprehension of complex yes/ no questions,Following 2-step commands Expressive Language Impairment(s) Divergent naming,Expression of complex thoughts/ideas Pragmatic Language Normal Yes Speech Normal Yes Cognition Normal No Cognitive Impairment(s) Orientation,Attention,Short- term memory,Long-term memory, Executive functioning,Problem solving,Thought organization Formal Assessment Standardized Test/Screener Type [facility] Mental Status (UMS) Administration Complete Results PT scored a 3/30 on the SLUMS, indicative of dementia. In addition to the SLUMS, AC/DC REWINDER administered Brief Cognitive Rating Scales. Pt scored an overall score of 6, consistent with Moderately Severe Dementia. In this stage, the pt's knowledge of her past life is minimal though she remembers some details. She is unaware of her surroundings including date, time, year, season. She Had difficulty counting from 10 backwards to 1. She does recall her own name and is oriented to self. Findings/Results Language Function Moderately impaired Cognitive Function Severely impaired Findings Pt presents with severe cognitive impairment at this time, consistent with Moderately Severe Dementia in the absence of any acute medical conditions that may be contributing to AMS. Pt will require assistance with all ADLs and IADLs at current level of cognitive performance . Cognitive Communication Deficits Self-awareness of Cognitive- Situational awareness ( Communication Deficits recognition of problem in context;in real time) Impact on Functioning Activity Limits/Particip.Rest. Sev: General Tasks and Demands Household Tasks Interpersonal Interactions Community Safety Risks Sev: Being Left Alone at Home Reacting to Emergency Managing Medication Traveling Alone in Community Prognosis Prognosis Guarded Based on Cognitive status,Time since onset Plan of Care Speech-Language Treatment No
[2023-12-14 19:00] VITALS: O2SAT 98
[2023-12-14 21:53] VITALS: BP 146/83; PULSE 94; RESP 18; TEMP 37.3; O2SAT 98
[2023-12-15 05:53] LABS: BUN Creatinine Ratio 31.3 (6-22); Blood Urea Nitrogen 15 mg/dL (7-17); Calcium 9.6 mg/dL (8.4-10.2); Carbon Dioxide 24 mmol/L (22-32); Chloride 105 mmol/L (98-107); Estimated Glomerular Filt Rate > 60 mL/min (>60); Glucose 120 mg/dL (80-110); HEMOLYSIS < 15 (0-50); Potassium 4.3 mmol/L (3.4-5.1); Sodium 133 mmol/L (137-145)
[2023-12-15 08:00] VITALS: O2SAT 98
--- NOTE | 2023-12-15 08:35 | PM.PN.1 ---
Subjective Subjective Date Patient Seen: 12/15/23 Time Patient Seen: 08:15 Interval history: Ongoing improvement. She is admitted for fall, weight loss, and cognitive decline. She remains confused but pleasant. Enjoying breakfast. Exam Vital Signs (past 8 hours): Oxygen Delivery Method Room Air Oxygen Flow Rate 0 Narrative Exam Narrative: Alert thin female, NAD. Confusion. Lungs are clear to auscultation bilaterally. Heart is regular rate and rhythm. Objective Labs 12/13/23 05:04 12/15/23 05:33 Labs: Laboratory Results - last 24 hr 12/14/23 12/15/23 04:36 05:33 Sodium Cancelled 133 L Potassium Cancelled 4.3 Chloride Cancelled 105 Carbon Dioxide Cancelled 24 BUN Cancelled 15 Creatinine Cancelled 0.48 L Estimated GFR Cancelled > 60 BUN/Creatinine Ratio Cancelled 31.3 H Glucose Cancelled 120 H Calcium Cancelled 9.6 Magnesium 2.0 PFSH Family History Mother Heart disease Hypertension Stroke Social History household members: none Smoking Status: Never smoker alcohol intake: never Assessment & Plan Assessment and plan (1) Pneumomediastinum: Status: Acute (2) Elevated CK: Status: Acute (3) Non-ST elevation LA (NSTEMI): Status: Acute (4) Fall: Qualifiers: Encounter type: initial encounter Qualified Code(s): W19.XXXA - Unspecified fall, initial encounter Status: Acute (5) Cognitive decline: Status: Acute (6) Weight loss: Status: Acute (7) Depression: Qualifiers: Depression Type: major depressive disorder Major depression recurrence: single episode Active/Remission status: currently active Major depression episode severity: moderate Qualified Code(s): F32.1 - Major depressive disorder, single episode, moderate Status: Acute Assessment & Plan narrative: Elevated troponin. No EKG changes, no patient complaints. Downtrending. Likely from the rhabdo. Echo discussed with Dr. Packer, operator weapon locating radar destination coordinator, no concerning findings. Echo changes likely 2/2 to hypertension. Hypokalemia. Resolved, 12/15. Oral replacement. Daily labs. Anemia. FIT test to rule out GI etiology. b12/folate normal. Will obtain FIT testing as able. Pneumomediastinum. Noted on CT. Esophagram without esophageal leak or other pathology. Incidental finding. Surgery signed off. Multiple spiculated subpleural nodules Noted in lungs on CT scan. Will repeat CT in 3 months outpatient. Weight loss. Etiology is unclear. CT scan showed pneumomediastinum that was found to be incidental on esophagram. Multiple spiculated subpleural nodules noted. Will repeat CT scan outpatient in 3 months. Continue mirtazapine. Moderately Severe Dementia. Speech eval with [facility] 02/25 consistent with Moderately Severe Dementia . Brain MRI without acute or subacute infarction. Age-appropriate brain parenchymal volume loss and chronic small vessel ischemic changes. Planning for SNF placement for strengthening and weight gain. Planning to find assisted living facility after SNF. Kim, her friend and neighbor is designated MDPOA. Shoulder pain. Improved Left hand pain. Improved Multiple contusions. From fall. No evidence of fractures but will need to follow closely. PT. DVT prophylaxis. Daily lovenox. GI prophylaxis on medication Code status DNI DNR Disposition. Awaiting SNF placement at [facility] in next 24-48 hours.
[2023-12-15 09:19] VITALS: BP 140/78; PULSE 76; RESP 18; TEMP 36.6; O2SAT 98
--- NOTE | 2023-12-15 10:20 | CM.DPC ---
DCP Cont. Reviewed EMR and team rounds for status updates. Plan is for pt to d/c today to [facility] at 2:00pm, [facility] will transport. Waiting on scripts and medlist from provider. No further DCP needs indicated at this time. [facility] Adv. Auth# [id number]
--- NOTE | 2023-12-15 10:37 | P.DS_ITS ---
History of Present Illness History of Present Illness Date Patient Seen: 12/15/23 Time Patient Seen: 08:15 Chief complaint: Fall/Alt mental Status/Px in neck Narrative: H&P from Dr Spencer Patient is a 73-year-old I am seeing in [facility] who I get history through friend and through her. Patient lives independently but has had difficulty over the last 3 months. Certainly since she had COVID several months ago apparently there has been a down turn. Patient is unsure what exactly happened and is quite confused about being in a small house but she fell and could not get up. Probably an unknown amount of hours before she was found by neighbors. She was on the floor. She does not know exactly what happened but she does feel like she maybe hit her head. She has no other significant change. Apparently she was treated with mirtazapine but she has not been on it on a consistent basis. She otherwise is having no current medicines no issues or complaints. No persistent issue apparently she has had 30 lb weight loss over the last few months. She was in the ER a month ago and had a CT scan of her abdomen which showed a narrowing and constipation possible colitis but has not been worked up further. Apparently she just does not eat. But she does not say it hurts does not say she has dysphagia. She has not had any blood in her stool she was constipated. But no other changes. No urinary changes. No fevers no chills no night sweats. She basically does not any unless she has issues. She is complaining of some hip pain and left arm pain which apparently has been longstanding. A little numbness in her left hand. Other than that she has no other significant change. Discharge Providers Provider Date of admission: 12/11/23 17:37 Discharge Date: 12/15/23 Primary care physician: Rox Munoz MD Consults: 12/11/23 20:03 Consult to Discharge Planning Routine Comment: Consult to Occupational Therapy Evaluate & Treat Comment: Physician Instructions: Evaluate and treat Consult to Physical Therapy Evaluate & Treat Comment: Physician Instructions: Evaluate and Treat 12/12/23 12:43 Consult to General Surgery Routine Comment: Consulting Provider: Terrell Goins Reason for consultation: Pneumomediastinum 12/13/23 14:16 Consult to Speech Therapy Evaluate & Treat Comment: congitive eval Physician Instructions: Evaluate and treat Discharge provider: Rox Munoz MD Summary Hospital Course Discharge Diagnosis: mechanical fall, moderately severe dementia, incidental pneumomediastinum, multiple spiculated subpleural nodules Hospital Course: H&P from Dr Spencer Patient is a 73-year-old I am seeing in [facility] who I get history through friend and through her. Patient lives independently but has had difficulty over the last 3 months. Certainly since she had COVID several months ago apparently there has been a down turn. Patient is unsure what exactly happened and is quite confused about being in a small house but she fell and could not get up. Probably an unknown amount of hours before she was found by neighbors. She was on the floor. She does not know exactly what happened but she does feel like she maybe hit her head. She has no other significant change. Apparently she was treated with mirtazapine but she has not been on it on a consistent basis. She otherwise is having no current medicines no issues or complaints. No persistent issue apparently she has had 30 lb weight loss over the last few months. She was in the ER a month ago and had a CT scan of her abdomen which showed a narrowing and constipation possible colitis but has not been worked up further. Apparently she just does not eat. But she does not say it hurts does not say she has dysphagia. She has not had any blood in her stool she was constipated. But no other changes. No urinary changes. No fevers no chills no night sweats. She basically does not any unless she has issues. She is complaining of some hip pain and left arm pain which apparently has been longstanding. A little numbness in her left hand. Other than that she has no other significant change. Patient was seen by surgery for pneumomediastinum that was evaluated with esophagram and found to be incidental. No further work up was warranted. She had elevated troponin levels without symptoms or EKG changes. Likely secondary to rhabdo from fall. Discussed echo with cardiology who did not recommend further evaluation or treatment. Her electrolyte abnormalities stabilized to normal. She was found to have multiple spiculated subpleural nodules noted on CT scan. Will repeat CT in 3 months outpatient. She had a speech eval with [facility] 02/25 consistent with Moderately Severe Dementia. She will be placed in SNF and then transition to assisted living with help from her friend Kim, her friend and neighbor who is designated MDPOA. She had shoulder and hand pain that has improved. Status at Discharge Cognitive/behavioral status at discharge: at baseline, confused Functional status at discharge: wheelchair bound Overall status at discharge: patient is progressing back to baseline Time Spent with Patient Time spent: Greater than 30 minutes Exam Vital Signs (past 8 hours): - 12/15/23 08:00 12/15/23 09:19 Temperature 97.9 F Pulse Rate 76 Respiratory Rate 18 Blood Pressure 140/78 Pulse Oximetry 98 98 Oxygen Delivery Method Room Air Oxygen Flow Rate 0 Oxygen Delivery Method Room Air Oxygen Flow Rate 0 Narrative Exam Narrative: Alert thin female, NAD. Confusion. Lungs are clear to auscultation bilaterally. Heart is regular rate and rhythm. Objective Labs 12/13/23 05:04 12/15/23 05:33 Labs: Laboratory Results - last 24 hr 12/14/23 12/15/23 04:36 05:33 Sodium Cancelled 133 L Potassium Cancelled 4.3 Chloride Cancelled 105 Carbon Dioxide Cancelled 24 BUN Cancelled 15 Creatinine Cancelled 0.48 L Estimated GFR Cancelled > 60 BUN/Creatinine Ratio Cancelled 31.3 H Glucose Cancelled 120 H Calcium Cancelled 9.6 Magnesium 2.0 PFSH Family History Mother Heart disease Hypertension Stroke Social History household members: none Smoking Status: Never smoker alcohol intake: never Discharge Assessment & Plan Assessment and Plan Plan of Treatment: Elevated troponin. No EKG changes, no patient complaints. Downtrending. Likely from the rhabdo. Echo discussed with Dr. Packer, push connector assembler butadiene converter operator, no concerning findings. Echo changes likely 2/2 to hypertension. Hypokalemia. Resolved, 12/15. Oral replacement. Anemia. FIT test to rule out GI etiology. b12/folate normal. Will obtain FIT testing outpatient. Pneumomediastinum. Noted on CT. Esophagram without esophageal leak or other pathology. Incidental finding. Multiple spiculated subpleural nodules Noted in lungs on CT scan. Will repeat CT in 3 months outpatient. Weight loss. Etiology is unclear. CT scan showed pneumomediastinum that was found to be incidental on esophagram. Multiple spiculated subpleural nodules noted. Will repeat CT scan outpatient in 3 months. Continue mirtazapine. Moderately Severe Dementia. Speech eval with [facility] 02/25 consistent with Moderately Severe Dementia . Brain MRI without acute or subacute infarction. Age-appropriate brain parenchymal volume loss and chronic small vessel ischemic changes. SNF placement for strengthening and weight gain. Planning to find assisted living facility after SNF. Kim, her friend and neighbor is designated MDPOA. Shoulder pain. Improved Left hand pain. Improved Multiple contusions. From fall. No evidence of fractures but will need to follow closely. Discharge Plan Discharge Plan Patient Disposition: SNF Transfer to: [facility] Discharge orders & Medications Prescriptions: Continued mirtazapine 15 mg tablet 15 mg PO BEDTIME Qty: 30 1RF Follow up/Referrals: Rox Munoz MD [Primary Care Provider] - Visit Report/Discharge Packet Stand Alone Forms: Patient Portal/API Discharge Data Primary Care Provider: Rox Munoz
--- NOTE | 2023-12-15 11:29 | CM.DPNOTE ---
DCP Note SOLAR TECHNICIAN reviewed EMR. Pt set to dc today at 1400 to . Charley from requested 1300 due to transporter availability. SOLAR TECHNICIAN updated FAIRING MAN and RN. SOLAR TECHNICIAN coordinated with provider for signed med list and dc summary. SOLAR TECHNICIAN faxed signed med list and DC summary to at f [phone]. [facility] and signed med list in folder for pt's dc. SOLAR TECHNICIAN spoke with POA/Friend Kim Muñoz (p [phone]). In agreement with plan. Reports will come to [facility] this afternoon to assist in paperwork and help get pt set up over there. Plan: [facility] today at [facility]. CM team will continue to follow as needed. SREEDHAR [employer]
--- NOTE | 2023-12-15 11:35 | OT.IP.TRT ---
Current Diagnoses Major depressive disorder, single episode, moderate (12/11/23) Non-ST elevation (NSTEMI) myocardial infarction (12/11/23) 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) Other symptoms and signs involving cognitive functions and awareness (12/11/23) Abnormal weight loss (12/11/23) Abnormal levels of other serum enzymes (12/11/23) Unspecified fall, initial encounter (12/11/23) Occupational Therapy Treatment Note M2 OT-IP Current Condition Start: 12/13/23 12:08 Freq: Status: Active Protocol: Document 12/13/23 12:08 [facility] (Rec: 12/13/23 12:21 [facility] [id number]) Occupational Therapy Current Condition Current Condition Evaluation Date 12/13/23 Treatment Diagnosis found down, recent change in personality Diagnosis Onset Date 12/11/23 M3 OT- IP Subjective and Pain Start: 12/13/23 12:08 Freq: Status: Active Protocol: Document 12/15/23 11:38 [facility] (Rec: 12/15/23 11:57 [facility] [id number]) OT- Subjective Occupational Therapy Visit Type Type Treatment Note Visit Start Time 10:55 Visit Stop Time 11:37 Total Visit Minutes 42 Occupational Therapy Visit Comments Patient Comments Pt needing encouragement and but then agreed to take a shower. Patient/Caregiver Goals To get better. OT Pain Assessment Pain When Pain Assessed At Rest Pain Present Pain Present Denied Pain M4 OT- IP ADL's Start: 12/13/23 12:08 Freq: Status: Active Protocol: Document 12/15/23 11:38 [facility] (Rec: 12/15/23 11:57 [facility] [id number]) OT [id number] Comments OT Self-Feeding Comments set-up OT ADL-Grooming General Evaluation Grooming Ability Minimal Assistance Areas Needing Assistance Combing/Brushing Hair Comments OT Grooming Comments Needing assist for to detangle the back of her hair. OT ADL-Oral Care General Eval Oral Care Ability Independent OT ADL-Dressing General Eval Lower Body Dressing Ability Maximum Assistance Areas Needing Assistance Underpants/Brief,Socks Comments OT Dressing Comments Assist to put the sock and brief on over her feet. Assist to pull up the brief over her hips. OT ADL-Toileting General Evaluation Toileting Ability Minimal Assistance Areas Needing Assistance Manage Clothing Comments OT Toileting Comments Pt needing assist to help don the brief. Pt needing cues to sit down prior to trying to take off her brief. OT ADL-Bathing Bathing Type Bathing Type Shower General Evaluation Bathing Ability Moderate Assistance,Maximal Assistance Comments OT Bathing Comments Pt needing assist to wash her hair, back, feet, and assist for balance while standing to do perineal area. M5 OT- IP IADL's Start: 12/13/23 12:08 Freq: Status: Active Protocol: Document 12/13/23 12:08 [facility] (Rec: 12/13/23 12:21 [facility] [id number]) OT-Instrumental Activities of Daily Living Deficits IADL Deficits Identified Deficits Home Safety Awareness Awareness of Need for Assistance at Home Decreased Awareness Ability to Problem Solve Emergency Unable to Problem Solve Situations Medication Management Medication Management Comments concerns regarding pts ability to perform Money Management Money Management Comments concerns regarding pts ability to perform Meal Preparation Meal Preparation Comments concerns regarding pts ability to perform Transferrer Transferrer Comments concerns regarding pts ability to perform Driving Driving Comments concerns regarding pts ability to perform as pt drives at baseline M6 OT- IP Functional Cognition Start: 12/13/23 12:08 Freq: Status: Active Protocol: Document 12/15/23 11:38 [facility] (Rec: 12/15/23 11:57 [facility] [id number]) Cognitive Factors Limiting Selfcare Function Cognitive Ability Memory Description Short Term Impaired,Residential Impaired,Working Impaired Cognitive Comments Cognitive Assessment Comments Pt a bit confused and poor memory. Pt forgetting that she was wanting to use the bathroom. Pt forgetting where the shower was after using the bathroom and trying to walk out of the bathroom. M7 OT- IP Mobility and Balance Start: 12/13/23 12:08 Freq: Status: Active Protocol: Document 12/15/23 11:38 [facility] (Rec: 12/15/23 11:57 [facility] [id number]) OT- Bed Mobility Assessment Supine to Sit Supine to Sit Assist Standby Assistance Scooting Scooting to Edge of Bed Contact Guard Assistance OT-Transfer Assessment Sit to and From Stand Sit to and from Stand Minimal Assistance,Moderate Assistance Transfers Transfer Ability Minimal Assistance,Moderate Assistance Technique Transfer Destination Bed,Shower Stall,Toilet Transfer Technique Stand Step Pivot Devices Transfer Assistive Devices Gait Belt,Front Wheeled Walker Comments Mobility Comments Pt needing from ANIL to MAXA to stand pending on height of surface standing from. Once on her feet ANIL with FWW. Pt needing cues to keep the FWW in front of her. OT- Balance Assessment Sitting Balance and Reactions Static Sitting Balance Ability Good Dynamic Sitting Balance Ability Fair Standing Balance and Reactions Static Standing Balance Ability Poor Dynamic Standing Balance Ability Poor Comments Other Balance Tests/Deviations/Treatment Pt balance more impaired today : and needing more assist. M8 OT- IP Objective Assessments Start: 12/13/23 12:08 Freq: Status: Active Protocol: Document 12/13/23 12:08 [facility] (Rec: 12/13/23 12:21 [facility] [id number]) OT Gross Range of Motion Upper Extremity Range of Motion ROM Impairments B shld impairments but L shld impairment 0-30 with pain. OT Strength Upper Extremity Strength Assessment Within Functional Limits Comments Strength Comments per MMT grossly 3+/5 but pt demonstrates better strength with mobility then demonstrated with MMT. OT- Coordination Assessment Upper Extremity Finger to Nose Test Left UE Impaired Finger Tapping Test Within Functional Limits OT-Muscle Tone Assessment Muscle Tone WNL Yes OT Sensation Assessment Edema Edema Absent M9 OT- IP Assessment and Plan Start: 12/13/23 12:08 Freq: Status: Active Protocol: Document 12/15/23 11:38 [facility] (Rec: 12/15/23 11:57 [facility] [id number]) OT Summary Assessment and Plan Potential Rehabilitation Potential Fair Analytic Complexity at Evaluation High Summary OT Impairments Pain,Strength,Balance, Coordination,Functional Cognition,Functional Mobility, Grooming,Dressing,Toileting, Bathing,Toilet Transfers, Shower Transfers,Activity Tolerance Progress Towards Goals Slow Progress due to Cognition Assessment Summary Pt aware is 0x3 , pt still confused and needing assist to help problem solve fro ADL needs due to immediately forgetting what she is doing. Pt needing step by step commands for safety and to help process for ADL needs of showering and dressing. Pt will benefit from skilled rehab to maximize her independence and mobility needs and afterwards would benefit from memory care or assisted living. Goals Grooming Goal Independent Dressing Goal Standby Assistance Toileting Goal Standby Assistance Bathing Goal Standby Assistance Toilet Transfer Goal Standby Assistance Shower Transfer Goal Contact Guard Assistance Days to Meet Goals 19 Frequency of Treatment Frequency Of Treatment Once a Day Treatment Plan OT Treatment Plan ADL Training,Functional Cognition Training,Functional Mobility,Patient/Family Education,Discharge Planning Discharge Recommendations OT Discharge Recommendations SNF Rehab Transportation Needs at Discharge Wheelchair/Cabulance
--- NOTE | 2023-12-15 12:22 | PT-IP ANOTE ---
Therapist spoke with pt and nursing who stated she is leaving at 13:00 this afternoon for SNF. Will hold PT for now. If pt is to remain in hospital, PT will check on pt tomorrow.
--- NOTE | 2023-12-15 12:31 | PC.NURSE ---
Pt is ready for discharge to [facility] at 1300 via W/C. Her POA Kim has been notified that she is being transferred. Called report to Shelley RUBI at [facility] and gave full Pt update. No further questions.
--- NOTE | 2023-12-15 14:12 | PC.NURSE ---
Received phone call in follow up to APS referral placed when pt was under my care in the Emergency Department. Spoke w/ Darrell Collier of [facility] APS. Reviewed case. I informed him that patient went to [facility]. He requested notes which was faxed to him @ [phone].
== END 2023-12-15 13:24 | DRG 565 ==
LOC: ED 13:09 → AC 17:37 → ICU 17:40 → AC 18:11
PROVIDERS: Admitting Provider Family Medicine; Emergency Provider Emergency Medicine; PCP Student in an Organized Health Care Education/Training Program; Referring Provider Emergency Medicine; Visit Provider Student in an Organized Health Care Education/Training Program
DX: T79.6XXA Traumatic ischemia of muscle, initial encounter (principal); F32.1 Major depressive disorder, single episode, moderate; Z68.1 Body mass index [BMI] 19.9 or less, adult; E87.6 Hypokalemia; D64.9 Anemia, unspecified; R63.4 Abnormal weight loss; S00.83XA Contusion of other part of head, initial encounter; W06.XXXA Fall from bed, initial encounter; J98.2 Interstitial emphysema; F03.C0 Unspecified dementia, severe, without behavioral disturbance, psychotic disturbance, mood disturbance, and anxiety; R79.89 Other specified abnormal findings of blood chemistry
CPT/HCPCS: 0241U; 36415; 70450; 70551; 71045; 71260; 72125; 72170; 74177; 74220; 80048; 80053; 80305; 80320; 80329; 81001; 82140; 82550; 82607; 82728; 82746; 83540; 83550; 83605; 83735; 84145; 84146; 84443; 84484; 85025; 85610; 85730; 87040; 87086; 92523; 93005; 93010; 93306; 97162; 97167; 97530; 97535; 99231; 99232; 99238; 99285; C9113; G0480; J1450; J1650; J2543; Q9967

== ENCOUNTER → 2024-02-10 19:42 | Outpatient (ROUT) | payer MEDICARE, MEDICAID, SELFPAY ==
[2023-12-11 18:52] VITALS: BMI 17.2
[2024-02-10 20:17] LABS: Bilirubin Urine UA NEGATIVE (NEGATIVE); Color Urine UA YELLOW; Glucose Urine UA NEGATIVE (Negative); Ketones Urine UA NEGATIVE (NEGATIVE); Leukocyte Esterase Urine UA NEGATIVE (NEGATIVE); Nitrite Urine UA NEGATIVE (Negative); Occult Blood Urine UA TRACE-INTACT (Negative); Protein Urine UA NEGATIVE (Negative); Specific Gravity Urine UA >=1.030 (1.000-1.035)
[2024-02-10 21:24] LABS: Appearance Urine UA Slightly Cloudy
[2024-02-10 21:25] LABS: Urine Volume 10mL (spun)
[2024-02-10 21:26] LABS: Calcium Oxalate Crystals Urine Many; RBC Urine 0-1/HPF (0-5/HPF); Squamous Epithelial Cell Urine 10-30 /HPF (0-5/HPF); WBC Urine 0-1/HPF (0-5/HPF)
[2024-02-10 21:27] LABS: Bacteria Urine Few (2-10)
[2024-02-10 21:30] LABS: Mucus Urine 2+ (Negative)
[2024-02-10 21:31] LABS: Culture Indicated Urine Cult Not Indicated
== END ==
PROVIDERS: PCP Student in an Organized Health Care Education/Training Program; Visit Provider Nurse Practitioner
DX: R30.9 Painful micturition, unspecified (principal)
CPT/HCPCS: 81001

== ENCOUNTER → 2024-04-11 14:02 | Outpatient (CLI) | payer MEDICARE, MEDICAID, SELFPAY ==
[2023-12-11 18:52] VITALS: BMI 17.2
[2024-04-11 14:59] LABS: Appearance Urine UA CLEAR; Bilirubin Urine UA NEGATIVE (NEGATIVE); Color Urine UA YELLOW; Glucose Urine UA NEGATIVE (Negative); Ketones Urine UA NEGATIVE (NEGATIVE); Leukocyte Esterase Urine UA NEGATIVE (NEGATIVE); Nitrite Urine UA NEGATIVE (Negative); Occult Blood Urine UA 1+ (Negative); Protein Urine UA NEGATIVE (Negative); Specific Gravity Urine UA 1.015 (1.000-1.035); Urobilinogen Urine UA 0.2 E.U./dL (0.2); pH Urine UA 5.5 (4.5-8.0)
[2024-04-11 15:08] LABS: Bacteria Urine Few (2-10); Culture Indicated Urine Cult Not Indicated; RBC Urine 0-1/HPF (0-5/HPF); Squamous Epithelial Cell Urine 0-1 /HPF (0-5/HPF); Transitional Epi Cells Urine 0-1/HPF (0-5/HPF); Urine Volume 10mL (spun); WBC Urine 1-5/HPF (0-5/HPF)
== END ==
PROVIDERS: PCP Student in an Organized Health Care Education/Training Program; Referring Provider Internal Medicine; Visit Provider Internal Medicine
DX: N39.0 Urinary tract infection, site not specified (principal)
CPT/HCPCS: 81001

== ENCOUNTER → 2024-05-23 11:06 | Outpatient (ROUT) | payer MEDICARE, MEDICAID, SELFPAY ==
[2023-12-11 18:52] VITALS: BMI 17.2
[2024-05-23 11:15] LABS: Appearance Urine UA CLEAR; Bilirubin Urine UA NEGATIVE (NEGATIVE); Color Urine UA YELLOW; Glucose Urine UA NEGATIVE (Negative); Ketones Urine UA NEGATIVE (NEGATIVE); Leukocyte Esterase Urine UA NEGATIVE (NEGATIVE); Nitrite Urine UA NEGATIVE (Negative); Occult Blood Urine UA NEGATIVE (Negative); Protein Urine UA NEGATIVE (Negative); Specific Gravity Urine UA 1.015 (1.000-1.035); Urobilinogen Urine UA 0.2 E.U./dL (0.2)
[2024-05-23 11:34] LABS: Bacteria Urine None Seen; RBC Urine 0-1/HPF (0-5/HPF); Urine Volume 10mL (spun); WBC Urine 0-1/HPF (0-5/HPF)
[2024-05-23 11:35] LABS: Culture Indicated Urine Cult Not Indicated; Squamous Epithelial Cell Urine 5-10 /HPF (0-5/HPF)
== END ==
PROVIDERS: PCP Student in an Organized Health Care Education/Training Program; Visit Provider Internal Medicine
DX: R39.9 Unspecified symptoms and signs involving the genitourinary system (principal)
CPT/HCPCS: 81001

== ENCOUNTER → 2024-06-27 11:59 | Outpatient (ROUT) | payer MEDICARE, MEDICAID, SELFPAY ==
[2023-12-11 18:52] VITALS: BMI 17.2
[2024-06-27 12:19] LABS: Hematocrit 31.9 % (36-46); Mean Corpuscular HGB Conc 34.5 % (30-36); Mean Corpuscular Hemoglobin 32.5 PG (26-34); Platelet Count 173 X10^3/uL (150-400); Red Cell Distribution Width 14.5 % (11.6-14.8); White Blood Cell Count 5.1 X10^3/uL (4.5-11.0)
[2024-06-27 12:57] LABS: BUN Creatinine Ratio 19.5 (6-22); Blood Urea Nitrogen 15 mg/dL (7-17); Calcium 8.9 mg/dL (8.4-10.2); Carbon Dioxide 24 mmol/L (22-32); Chloride 103 mmol/L (98-107); Estimated Glomerular Filt Rate > 60 mL/min (>60); Glucose 94 mg/dL (80-110); HEMOLYSIS < 15 (0-50); Potassium 4.8 mmol/L (3.4-5.1); Sodium 134 mmol/L (137-145)
[2024-06-27 13:33] LABS: Thyroid Stimulating Hormone 0.917 uIU/mL (0.47-4.68)
[2024-06-27 14:01] LABS: Folate 7.4 ng/mL (2.76-20.0); Vitamin B12 316 pg/mL (239-931)
== END ==
PROVIDERS: PCP Student in an Organized Health Care Education/Training Program; Visit Provider Registered Nurse
DX: F03.90 Unspecified dementia, unspecified severity, without behavioral disturbance, psychotic disturbance, mood disturbance, and anxiety (principal)
CPT/HCPCS: 36415; 80048; 82607; 82746; 84443; 85027

== ENCOUNTER → 2024-07-10 16:07 | Outpatient (ROUT) | payer MEDICARE, MEDICAID, SELFPAY ==
[2023-12-11 18:52] VITALS: BMI 17.2
[2024-07-10 16:47] LABS: Appearance Urine UA CLEAR; Bilirubin Urine UA NEGATIVE (NEGATIVE); Color Urine UA YELLOW; Glucose Urine UA NEGATIVE (Negative); Ketones Urine UA NEGATIVE (NEGATIVE); Leukocyte Esterase Urine UA NEGATIVE (NEGATIVE); Nitrite Urine UA NEGATIVE (Negative); Occult Blood Urine UA NEGATIVE (Negative); Protein Urine UA NEGATIVE (Negative); Urobilinogen Urine UA 0.2 E.U./dL (0.2)
[2024-07-10 16:51] LABS: pH Urine UA 7.5 (4.5-8.0)
[2024-07-10 16:55] LABS: Bacteria Urine None Seen; Culture Indicated Urine Cult Not Indicated; RBC Urine None Seen (0-5/HPF); Squamous Epithelial Cell Urine None Seen (0-5/HPF); Urine Volume 10mL (spun); WBC Urine None Seen (0-5/HPF)
== END ==
PROVIDERS: PCP Student in an Organized Health Care Education/Training Program; Visit Provider Registered Nurse
DX: Z13.89 Encounter for screening for other disorder (principal)
CPT/HCPCS: 81001

== ENCOUNTER 2025-03-15 08:34 | Emergency (ER) | payer MEDICARE, MEDICAID, SELFPAY ==
[2023-12-11 18:52] VITALS: BMI 17.2
[2025-03-15] VITALS (12 sets, daily range): BP systolic 112–146; BP diastolic 55–84; PULSE 80–124; RESP 17–54; TEMP 37.3–39.2; O2SAT 92–94; BMI 30.2
--- NOTE | 2025-03-15 08:39 | ED_ITS ---
HPI - Altered Mental Status General Chief Complaint: Fever Stated Complaint: Flu, fever, n/v Time Seen by Provider: 03/15/25 08:34 History of Present Illness HPI narrative: 73-year-old female history of dementia presents from facility for evaluation of mental status change, nausea and vomiting abdominal pain fever. According to the staff patient was at her normal baseline but this morning she seemed a little bit more confused, patient is alert to self and place at time of evaluation, she is moving all 4 extremities spontaneously no focal deficits. She states that she feels nauseous, as well as having some belly pain otherwise not complaining of any other symptoms. According to medics patient was febrile at 102F according to the facility. Patient is DNR DNI, selective treatment only Related Data Previous Rx's Medication Instructions Recorded mirtazapine 15 mg tablet 15 mg PO BEDTIME #30 tabs 11/18/23 Allergies Allergy/AdvReac Type Severity Reaction Status Date / Time No Known Drug Allergies Allergy Verified 12/10/23 14:42 Review of Systems Review of Systems Narrative: General: Denies fever, chills, weight loss HEENT: Denies headache, eye drainage, eye irritation, head trauma, sore throat, voice change Cardiovascular: Denies any chest pain, palpitations, tachycardia Respiratory: Denies any shortness of breath, cough, wheeze, stridor GI/: Positive abdominal pain, nausea, vomiting, denies diarrhea, bright red blood per rectum, melanotic stools, urinary frequency, urinary retention, dysuria, hematuria MSK: Denies any joint pain, muscle pains, swelling Skin: Denies any rashes, lesions, discoloration Neuro: Denies any headache, lightheadedness, dizziness, fainting, weakness Psych: Denies SI/HI Patient History Family History Mother Heart disease Hypertension Stroke Social History household members: none alcohol intake: never tobacco type: cigarettes alcohol intake frequency: 0-2 drinks per day Exam Narrative Exam Narrative: General: Cooperative, well-developed, not in acute distress HEENT: Normocephalic, atraumatic, PERRLA, normal sclera, eyelids normal Neck: Active full range of motion, atraumatic Chest: Normal to inspection, negative crepitus, no overlying erythema ecchymosis Respiratory: Normal respiratory effort, not in acute respiratory distress, clear to auscultation bilaterally negative cough, wheeze, tachypnea, rhonchi, rales Cardiology: Regular rate rhythm negative gallop, murmur, rubs GI/: Mild diffuse tenderness to palpation of abdomen, soft, non rigid, normal to inspection, exam deferred MSK: Full active range of motion in all 4 extremities, atraumatic, no tenderness to palpation of any bony prominences Skin: No rashes or lesions noted Neuro: Alert to self and place, moves all 4 extremities spontaneously, cranial nerves intact, able to answer all questions appropriately follows commands appropriately Psych: Cooperative, negative suicidal or homicidal ideations Initial Vital Signs Initial Vital Signs: Vital Signs Temperature 102.2 F H 03/15/25 08:39 Pulse Rate 112 H 03/15/25 08:39 Respiratory Rate 20 03/15/25 08:39 Blood Pressure 128/80 03/15/25 08:39 Pulse Oximetry 92 03/15/25 08:39 Oxygen Delivery Method Room Air 03/15/25 08:39 Course Orders Ordered: ED Orders 03/15/25 08:40 Respiratory Panel (Film Array) Stat EKG-12 Lead Stat 03/15/25 08:45 Complete Blood Count AUTO DIFF Stat Comprehensive Metabolic Panel Stat Lactate (Lactic Acid) Stat PTT Partial Thromboplastin Manny Stat Prothrombin Time INR Stat Troponin & CK Cardiac Panel Stat 03/15/25 08:52 Urinalysis and Microscopic Stat 03/15/25 09:26 Blood Culture Stat 03/15/25 10:15 Consult to [facility] - Dipper Machine Operator Stat Discontinued Medications Sodium Chloride (Normal Saline 0.9%) 1,000 mls @ 1,000 mls/hr IV BOLUS ONE Stop: 03/15/25 09:39 Last Infusion: 03/15/25 10:40 Dose: Infused Documented By: JORGE ALBERTO Admin: 03/15/25 09:11 Dose: 1,000 mls/hr Documented By: JORGE ALBERTO Acetaminophen (Ofirmev) 1,000 mg in 100 mls @ 400 mls/hr IV NOW ONE Stop: 03/15/25 09:02 Last Infusion: 03/15/25 09:28 Dose: Infused Documented By: Admin: 03/15/25 09:04 Dose: 400 mls/hr Documented By: JORGE ALBERTO Ketorolac Tromethamine (Ketorolac 30 Mg/Ml Vial) 30 mg IV NOW ONE Stop: 03/15/25 10:48 Last Admin: 03/15/25 10:50 Dose: 30 mg Documented By: JORGE ALBERTO Lorazepam (Lorazepam 2 Mg/Ml Inj) 1 mg IV NOW ONE Stop: 03/15/25 08:58 Last Admin: 03/15/25 09:04 Dose: 1 mg Documented By: JORGE ALBERTO Ondansetron HCl (Ondansetron 4 Mg/2 Ml Inj) 4 mg IV NOW ONE Stop: 03/15/25 08:41 Last Admin: 03/15/25 09:04 Dose: 4 mg Documented By: JORGE ALBERTO Vital Signs Vital signs: Vital Signs - 8 hr 03/15/25 08:39 03/15/25 08:39 03/15/25 09:00 Temperature 102.2 F H 102.6 F H Pulse Rate 112 H 124 H 111 H Respiratory Rate 20 20 54 H Blood Pressure 128/80 141/84 H Pulse Oximetry 92 92 93 Oxygen Delivery Method Room Air 03/15/25 09:04 03/15/25 09:09 03/15/25 09:09 Temperature 102 F H 102.2 F H Pulse Rate 100 H Respiratory Rate 26 H Blood Pressure 146/68 H Pulse Oximetry 93 Oxygen Delivery Method 03/15/25 09:30 03/15/25 09:44 03/15/25 10:00 Temperature 101.5 F H 101 F H 100.8 F H Pulse Rate 93 H 90 Respiratory Rate 25 H 20 Blood Pressure Pulse Oximetry 94 93 Oxygen Delivery Method 03/15/25 10:00 03/15/25 10:30 03/15/25 10:30 Temperature 100.4 F H Pulse Rate 87 Respiratory Rate 19 Blood Pressure 127/64 121/64 Pulse Oximetry 92 Oxygen Delivery Method 03/15/25 10:50 03/15/25 11:00 03/15/25 11:00 Temperature 100.1 F H 99.9 F H Pulse Rate 82 Respiratory Rate 17 Blood Pressure 119/60 Pulse Oximetry 93 Oxygen Delivery Method 03/15/25 11:30 03/15/25 11:30 Temperature 99.3 F Pulse Rate 80 Respiratory Rate 17 Blood Pressure 112/55 L Pulse Oximetry 93 Oxygen Delivery Method MDM - Altered Mental Status Differential Diagnosis Differential diagnosis: Likely altered mental status, dementia and other (Urinary tract infection, electrolyte abnormality, ACS, pneumonia) Lab Data 03/15/25 08:45 03/15/25 08:45 Labs: Lab Results 03/15/25 03/15/25 03/15/25 Range/Units 08:40 08:45 08:52 WBC 7.9 (4.5-11.0) X10^3/uL RBC 3.57 L (4.0-5.2) X10^6/uL Hgb 10.9 L (12.0-16.0) g/dL Hct 32.0 L (36-46) % MCV 89.7 (80-100) fL MCH 30.6 (26-34) PG MCHC 34.1 (30-36) % RDW 14.3 (11.6-14.8) % Plt Count 142 L (150-400) X10^3/uL Neut % (Auto) 90.4 H (50-75) % Lymph % (Auto) 5.1 L (25-40) % [place] % (Auto) 3.5 (3-14) % Eos % (Auto) 0.5 L (2-4) % Baso % (Auto) 0.5 (0-2) % Neut # (Auto) 7100 H (6730-2094) /uL Lymph # (Auto) 400 L (5151-0726) /uL [place] # (Auto) 300 (0-900) /uL Eos # (Auto) 0 (0-450) /uL Baso # (Auto) 0 (0-100) /uL PT 12.3 (9.4-12.5) SECONDS INR 1.1 (0.9-1.3) APTT 22 L (25.1-36.5) SECONDS Sodium 138 (137-145) mmol/L Potassium 3.9 (3.4-5.1) mmol/L Chloride 107 (98-107) mmol/L Carbon Dioxide 22 (22-32) mmol/L BUN 22 H (7-17) mg/dL Creatinine 0.73 (0.52-1.04) mg/dL Estimated GFR > 60 (>60) mL/min BUN/Creatinine Ratio 30.1 H (6-22) Glucose 160 H (80-110) mg/dL Lactate 1.9 (0.7-2.1) mmol/L Calcium 9.2 (8.4-10.2) mg/dL Total Bilirubin 0.5 (0.2-1.3) mg/dL AST 31 (14-36) IU/L ALT 20 (<35) IU/L Alkaline Phosphatase 89 (38-126) U/L Total Creatine Kinase 105 (30-135) U/L Troponin I < 0.012 (0.01-0.034) ng/mL Total Protein 7.9 (6.3-8.2) g/dL Albumin 4.2 (3.5-5.0) g/dL Globulin 3.7 (1.7-4.1) g/dL Albumin/Globulin Ratio 1.1 (1.0-2.8) Urine Color Yellow Urine Appearance Clear Urine pH 6.0 (4.5-8.0) Ur Specific [place] 1.015 (1.000-1.035) Urine Protein Negative (Negative) Urine Glucose (UA) Negative (Negative) g/dL Urine Ketones Negative (NEGATIVE) Urine Occult Blood 1+ H (Negative) Urine Nitrate Negative (Negative) Urine Bilirubin Negative (NEGATIVE) Urine Urobilinogen 0.2 (0.2) E.U./dL Ur Leukocyte Esterase Negative (NEGATIVE) Urine RBC 1-5/hpf (0-5/HPF) Urine WBC None seen (0-5/HPF) Ur Squamous Epith Cells None seen (0-5/HPF) Urine Bacteria None seen (None) Ur Culture Indicated? Cult not indicated Vol Urine Centrifuged 10ml (spun) Chlamy pneumoniae PCR Not detected (Not Detect) Adenovirus (PCR) Not detected (Not Detect) B. pertussis DNA (PCR) Not detected (Not Detect) B.parapertussis DNA PCR Not detected (Not Detecte) Coronavirus OC43 (PCR) Not detected (Not Detect) Coronavirus HKU1 (PCR) Not detected (Not Detect) Coronavirus 229E (PCR) Not detected (Not Detect) SARS-CoV-2 (PCR) Not detected (Not Detecte) Coronavirus NL63 (PCR) Not detected (Not Detect) Human Metapneumovir PCR Not detected (Not Detect) Influenza Type A (PCR) Not detected (Not Detect) Influenza Type B (PCR) Not detected (Not Detect) M. pneumoniae (PCR) Not detected (Not Detect) Parainfluenza 1 (PCR) Not detected (Not Detect) Parainfluenza 2 (PCR) Not detected (Not Detect) Parainfluenza 3 (PCR) Not detected (Not Detect) Parainfluenza 4 (PCR) Not detected (Not Detect) RSV (PCR) Not detected (Not Detect) Entero/Rhino (PCR) Not detected (Not Detect) MDM Narrative Medical decision making narrative: 74-year-old female with a past medical history of dementia, DNR/DNI with selective treatment only, stenting for flu-like symptoms, abdominal pain nausea vomiting from facility. According to the facility patient was acting normal, alert to self and place only yesterday, however this morning she seemed a little bit more restless. Was also complaining of some abdominal pain, did have 1 episode of nonbilious non bloody emesis prior to arrival here in the emergency department. She is currently at her baseline moving all 4 extremities, he is complaining of some belly pain. Review of records show patient with a ejection fraction of 60-65%, this was performed on 12/13/2023. Patient was given 1 L normal saline, temperature [place] catheter was placed. Patient had EKG chest x- ray CT scan of the head as well as CT of the abdomen here in the emergency department. 0952: Was informed by nursing that patient was not laying still long enough for a CT scan despite the fact that 1 mg IV Ativan was given prior to being sent down. 1010: I had a lengthy conversation with the patient's power of attorney at law, she states that patient is normally confused, would actually stating that patient is at her baseline, she states that patient has history of back pain and is most likely the reason why she was not able to lay still for the CT scan, she states that she does not want any additional tests or imaging done, she states that she just wants the patient to be comfortable, she is stating that she would like to talk to social work to start pursuing palliative care, she states that she does not want any antibiotics at this time. Therefore we will place consult to social work, she is agreeable to having the patient discharged back to facility after discussion with social work to initiate palliative care. 1140: POA met with social work faculty member Marce, they discussed that currently they would like to just seek additional help at the facility, not feeling comfortable heading towards full hospice at this time. Current workup unremarkable, no additional indications for administration of other tests or medications given current goal is just comfort. Patient will be discharged back to facility power of attorney at law understands and agrees with this plan was instructed to have patient follow up with primary care in outpatient setting Discharge Plan Departure Patient Disposition: Home Clinical Impression: Altered mental status Activity Restrictions/Additional Instructions: Patient with progressive decline from baseline, she would benefit significantly for additional help/treatment at her facility Please follow up with the primary care team Please read the discharge instructions sheet carefully and bring all papers to all doctor follow-up visits, as it may contain information that your doctor may want to see. Disease processes change and evolve, if your symptoms worsen or if you develop any new symptoms that are concerning to you please return for evaluation. Your evaluation today does not show any evidence of any life- threatening/serious illnesses requiring admission to the hospital or surgery. Please follow-up with your doctor for re-evaluation in approximately 1 day. Seek immediate medical attention for any worrisome symptoms. *If you do not have a primary care provider please contact the [facility] Resource line at [phone]. They will ask some questions about your medical history and help get you set up with a doctor in the community. Prescriptions: No Action mirtazapine 15 mg tablet 15 mg PO BEDTIME Qty: 30 1RF Referrals: Rox Munoz MD [Primary Care Provider] - Stand Alone Forms: Patient Portal/API/Survey
[2025-03-15 09:00] LABS: Add Manual Diff / Slide Review NO; Basophils Absolute Auto 0 /uL (0-100); Basophils Percent Auto 0.5 % (0-2); Eosinophils Absolute Auto 0 /uL (0-450); Eosinophils Percent Auto 0.5 % (2-4); Hemoglobin 10.9 g/dL (12.0-16.0); Lymphocytes Absolute Auto 400 /uL (1100-4500); Lymphocytes Percent Auto 5.1 % (25-40); Mean Corpuscular HGB Conc 34.1 % (30-36); Mean Corpuscular Hemoglobin 30.6 PG (26-34); Mean Corpuscular Volume 89.7 fL (80-100); Monocytes Absolute Auto 300 /uL (0-900); Monocytes Percent Auto 3.5 % (3-14); Neutrophils Absolute Auto 7100 /uL (1500-7000); Neutrophils Percent Auto 90.4 % (50-75); Platelet Count 142 X10^3/uL (150-400); Red Blood Cell Count 3.57 X10^6/uL (4.0-5.2); Red Cell Distribution Width 14.3 % (11.6-14.8); White Blood Cell Count 7.9 X10^3/uL (4.5-11.0)
[2025-03-15] MEDS: ONDANSETRON 4 MG/2 ML INJ IV (09:04)
[2025-03-15] MEDS: ACETAMINOPHEN IV 1,000 MG/100 ML VIAL 400 MG IV (09:04)
[2025-03-15] MEDS: LORazepam 2 MG/ML INJ 1 MG IV (09:04)
[2025-03-15 09:07] LABS: INR 1.1 (0.9-1.3); Prothrombin Time 12.3 SECONDS (9.4-12.5)
[2025-03-15 09:07] LABS: Appearance Urine UA CLEAR; Bilirubin Urine UA NEGATIVE (NEGATIVE); Color Urine UA YELLOW; Glucose Urine UA NEGATIVE (Negative); Ketones Urine UA NEGATIVE (NEGATIVE); Leukocyte Esterase Urine UA NEGATIVE (NEGATIVE); Nitrite Urine UA NEGATIVE (Negative); Occult Blood Urine UA 1+ (Negative); Protein Urine UA NEGATIVE (Negative); Specific Gravity Urine UA 1.015 (1.000-1.035); Urine Volume 10mL (spun); Urobilinogen Urine UA 0.2 E.U./dL (0.2)
[2025-03-15 09:09] LABS: Bacteria Urine None Seen; Culture Indicated Urine Cult Not Indicated; RBC Urine 1-5/HPF (0-5/HPF); Squamous Epithelial Cell Urine None Seen (0-5/HPF); WBC Urine None Seen (0-5/HPF)
[2025-03-15 09:10] LABS: PTT Partial Thromboplastin Tim 22 SECONDS (25.1-36.5)
[2025-03-15] MEDS: SODIUM CHLORIDE 0.9% 1,000 ML 1000 ML IV (09:11)
[2025-03-15 09:12] LABS: Alanine Aminotransferase 20 IU/L (<35); Albumin 4.2 g/dL (3.5-5.0); Albumin Globulin Ratio 1.1 (1.0-2.8); Alkaline Phosphatase 89 U/L (38-126); Aspartate Aminotransferase 31 IU/L (14-36); BUN Creatinine Ratio 30.1 (6-22); Bilirubin Total 0.5 mg/dL (0.2-1.3); Blood Urea Nitrogen 22 mg/dL (7-17); Calcium 9.2 mg/dL (8.4-10.2); Carbon Dioxide 22 mmol/L (22-32); Chloride 107 mmol/L (98-107); Creatine Kinase 105 U/L (30-135); Estimated Glomerular Filt Rate > 60 mL/min (>60); Globulin 3.7 g/dL (1.7-4.1); Glucose 160 mg/dL (80-110); HEMOLYSIS < 15 (0-50); Lactate (Lactic Acid) 1.9 mmol/L (0.7-2.1); Potassium 3.9 mmol/L (3.4-5.1); Sodium 138 mmol/L (137-145); Total Protein 7.9 g/dL (6.3-8.2)
[2025-03-15 09:25] LABS: Troponin I < 0.012 ng/mL (0.01-0.034)
--- NOTE | 2025-03-15 09:49 | PC.NURSE ---
technical project manager reports that CT scans were not able to be completed due to pt's restlessness. Physician notified.
[2025-03-15 09:54] LABS: Adenovirus Not Detected (Not Detect); B. parapertussis Not Detected (Not Detecte); Bordetella pertussis Not Detected (Not Detect); Chlamydophila pneumoniae Not Detected (Not Detect); Coronavirus 229E Not Detected (Not Detect); Coronavirus HKU1 Not Detected (Not Detect); Coronavirus NL 63 Not Detected (Not Detect); Coronavirus OC43 Not Detected (Not Detect); Human Metapneumovirus Not Detected (Not Detect); Human Rhinovirus/Enterovirus Not Detected (Not Detect); Influenza A Not Detected (Not Detect); Influenza B Not Detected (Not Detect); Mycoplasma pneumoniae Not Detected (Not Detect); Parainfluenza Virus 1 Not Detected (Not Detect); Parainfluenza Virus 2 Not Detected (Not Detect); Parainfluenza Virus 3 Not Detected (Not Detect); Parainfluenza Virus 4 Not Detected (Not Detect); Respiratory Syncytial Virus Not Detected (Not Detect); SARS- CoV-2 Not Detected (Not Detecte)
--- NOTE | 2025-03-15 10:43 | PC.NURSE ---
Pt resting comfortably in bed. Equal chest rise and fall observed. POA at bedside.
--- NOTE | 2025-03-15 10:44 | PC.NURSE ---
1000 brief changed, performed pericare & temp sensing ngo placed.
[2025-03-15] MEDS: KETOROLAC 30 MG/ML VIAL IV (10:50)
--- NOTE | 2025-03-15 12:11 | CM.SWNOTE ---
Addendum entered by Marce Raymundo 03/15/25 12:39: *DPOA noticed patient's ambulation decline in November 2023. YULY Granda Original Note: ED CAUL DRESSER Note Patient is 74 y/o female with hx of Dementia who resides at [facility], patient presents due to concern for fever. Patient has AARP Medicare OCN and Medicaid insurance. Patient's PCP is Matt Chavez through [facility]. Patient is DNR/selective treatment. ED provider discusses palliative care options with DPOA and endorses interest in meeting with CAUL DRESSER. CAUL DRESSER enters room to meet with patient. Patient presents resting, present in room is patient's DPOA Shelley EDWINOA endorses that patient uses her wheelchair at baseline but last November patient was walking. It is reported that patient is social at baseline and attends activities. DPOA states that she just visited patient yesterday and she was fine. DPOA states that she is not ready to explore comfort or palliative care at this time. CAUL DRESSER discusses assessing patient over the next few weeks, discussing it with [facility] care team. CAUL DRESSER discusses caregiver options as DPOA states that patient may need additional in home support at the facility, DPOA states that patient has Medicaid Spenddown funds to use. DPOA states she plans to discuss with [facility] her wishes upon when to send patient to the ED. CAUL DRESSER provides DPOA with lists of caregiver resources and information about Medicaid Spenddown spending options. Plan: patient to d/c upon medical clearance back to [facility], BELLA to look into caregivers for patient. YULY Granda
== END 2025-03-15 11:50 | disposition home or self-care (01) ==
PROVIDERS: Emergency Provider Student in an Organized Health Care Education/Training Program; PCP Student in an Organized Health Care Education/Training Program
DX: R41.82 Altered mental status, unspecified (principal); R10.9 Unspecified abdominal pain; R11.2 Nausea with vomiting, unspecified; R50.9 Fever, unspecified
CPT/HCPCS: 36415; 80053; 81001; 82550; 83605; 84484; 85025; 85610; 85730; 87040; 87633; 96365; 96375; 99284; J0131; J1885; J2060; J2405

== ENCOUNTER → 2025-03-28 06:30 | Outpatient (ROUT) | payer MEDICARE, MEDICAID, SELFPAY ==
[2023-12-11 18:52] VITALS: BMI 17.2
[2025-03-28 08:33] LABS: BUN Creatinine Ratio 26.3 (6-22); Blood Urea Nitrogen 20 mg/dL (7-17); Calcium 9.1 mg/dL (8.4-10.2); Carbon Dioxide 26 mmol/L (22-32); Chloride 103 mmol/L (98-107); Estimated Glomerular Filt Rate > 60 mL/min (>60); Glucose 110 mg/dL (70-99); HEMOLYSIS < 15 (0-50); Magnesium 2.3 mg/dL (1.6-2.3); Potassium 4.2 mmol/L (3.4-5.1); Sodium 136 mmol/L (137-145)
[2025-03-28 09:06] LABS: Thyroid Stimulating Hormone 0.909 uIU/mL (0.47-4.68)
== END ==
PROVIDERS: PCP Student in an Organized Health Care Education/Training Program; Visit Provider Registered Nurse
DX: R60.9 Edema, unspecified (principal); R63.5 Abnormal weight gain
CPT/HCPCS: 36415; 80048; 83735; 84443

== ENCOUNTER 2025-04-01 23:02 | Emergency (ER) | payer MEDICARE, MEDICAID, SELFPAY ==
[2023-12-11 18:52] VITALS: BMI 17.2
[2025-04-01 23:07] VITALS: BP 163/83; PULSE 73; RESP 20; TEMP 36.6; O2SAT 96
--- NOTE | 2025-04-01 23:10 | EKG_ITS ---
[address] [address] Test Date: 2025-04-01 Pat Name: Elidia Valdez Department: [facility] Room: Gender: Female [employer] Player: RAUDEL : 1950 Requested By: Order Number: [id number] Reading MD: Eugene Larose MD Measurements Intervals [place] Rate: 72 P: -14 [place]: 120 QRS: -12 QRSD: 88 T: 9 QT: 410 QTc: 448 Interpretive Statements Normal sinus rhythm Electronically Signed On 04-02-2025 7:35:27 PDT by Eugene Larose MD
--- NOTE | 2025-04-01 23:13 | ED.FALL ---
HPI - Fall General Chief Complaint: Fall Stated Complaint: Fall from WC, low BP Time Seen by Provider: 04/01/25 23:05 Source: EMS Mode of arrival: EMS History of Present Illness HPI Narrative: 75-year-old female history of dementia presents from assisted living facility after being brought in by EMS whereby she was sitting down watching TV and fell asleep and was found on the floor. Patient is now complaining of right-sided chest pain for which she believes happend when she hit the ground. Pt denies headache, dizziness, blurred vision, neck, arm, leg, abdominal, or back pain. Other than what is stated 14 point 14 point review of system is negative. Related Data Previous Rx's Medication Instructions Recorded mirtazapine 15 mg tablet 15 mg PO BEDTIME #30 tabs 11/18/23 Allergies Allergy/AdvReac Type Severity Reaction Status Date / Time No Known Drug Allergies Allergy Verified 12/10/23 14:42 Review of Systems Review of Systems ROS Unobtainable: All systems reviewed & are unremarkable except as noted in HPI and below Patient History Family History Mother Heart disease Hypertension Stroke Social History household members: none alcohol intake: never tobacco type: cigarettes alcohol intake frequency: 0-2 drinks per day Exam Narrative Exam Narrative: GENERAL: [75] year old patient appears stated age. Well-developed patient, in mild distress. HEAD: Atraumatic. Normocephalic. EYES: Pupils equal round and reactive. Extraocular motions intact. No scleral icterus. No injection or drainage. ENT: Nose without bleeding, purulent drainage. Throat without erythema, tonsillar hypertrophy or exudate. Airway patent. NECK: Trachea midline. Non tender CARDIOVASCULAR: Regular rate and rhythm without murmurs, gallops, or rubs. Chest wall mild TTP on R side RESPIRATORY: Clear to auscultation. Breath sounds equal bilaterally. No wheezes, rales, or rhonchi. GASTROINTESTINAL: Abdomen soft, non-tender, nondistended. EXTREMITIES: No edema or joint tenderness. BACK: Nontender without deformity or crepitance. No flank tenderness. NEURO: Alert to self and place moving all extremities spontaneously in all directions without any pain. Answers all questions appropriately without confusion or disorientation SKIN: No rash or erythema of visible areas Initial Vital Signs Initial Vital Signs: Vital Signs Temperature 97.9 F 04/01/25 23:07 Pulse Rate 73 04/01/25 23:07 Respiratory Rate 20 04/01/25 23:07 Blood Pressure 163/83 H 04/01/25 23:07 Pulse Oximetry 96 04/01/25 23:07 Oxygen Delivery Method Room Air 04/01/25 23:07 Scores HEART Score Heart Score history: Slightly Suspicious Heart Score EKG: Normal Heart Score Age: > or = 65 years old Heart Score risk factors: 1-2 risk factors Heart Score troponin: < or = to normal limit Heart Score Total: 3 Course Orders Ordered: ED Orders 04/01/25 23:04 EKG-12 Lead Stat Vital Signs Vital signs: Vital Signs - 8 hr 04/01/25 23:07 Temperature 97.9 F Pulse Rate 73 Respiratory Rate 20 Blood Pressure 163/83 H Pulse Oximetry 96 Oxygen Delivery Method Room Air MDM - Fall Imaging Data CT scan - head: Radiologist's Impression: [place] [address] CT Scan Report Signed Patient: Elidia Valdez MR#: [id number] : 1950 Acct:[id number] Age/Sex: 75 / F Date of Service: 04/01/25 Loc: ED Accession Number: [id number] Procedure: CT head/brain wo con Ordering Provider: Eugene Mancuso D.O. PROCEDURE: CT HEAD/BRAIN WO CON INDICATIONS: fall/trauma TECHNIQUE: Noncontrast 4.5 mm thick angled axial sections acquired from the foramen magnum to the vertex, with coronal and sagittal reformats. For radiation dose reduction, the following was used: automated exposure control, adjustment of mA and/or kV according to patient size. COMPARISON: [facility], CT, CT HEAD/BRAIN WO CON, 12/11/2023, 13:33. [facility], CT, CT HEAD/BRAIN WO CON, 12/02/2023, 16:24. FINDINGS: Image quality: Diagnostic. CSF spaces: Basal cisterns are patent. No extra-axial fluid collections. The ventricles are symmetric in size and shape. Brain: No acute intracranial hemorrhage or mass effect. There is cerebral volume loss, with resultant ventricular and sulcal prominence. There are periventricular and deep white matter chronic small vessel ischemic changes. There is intracranial internal carotid artery atherosclerosis. Skull and face: Calvarium and visualized facial bones appear intact, without suspicious lesions. Sinuses: Partial opacification of the bilateral ethmoid air cells. Visualized sinuses and mastoids are otherwise clear. IMPRESSION: No acute intracranial pathology. [address] [address] XRay Report Signed Patient: Elidia Valdez MR#: [id number] : 1950 Acct:[id number] Age/Sex: 75 / F Date of Service: 04/01/25 Loc: ED Accession Number: [id number] Procedure: XR chest 1V Ordering Provider: Eugene Mancuso D.O. PROCEDURE: XR CHEST 1V INDICATIONS: Chest Pain TECHNIQUE: One view of the chest was acquired. COMPARISON: [facility], CR, XR CHEST 2V, 12/02/2023, 16:29. [facility], CT, CT CHEST ABD PEL W CON, 12/12/2023, 11:40. [facility], CR, XR CHEST 1V, 12/11/2023, 13:01. [facility], CR, XR CHEST 1V, 08/17/2023, 21:02. FINDINGS: Surgical changes and devices: None. Lungs and pleura: Bilateral tibia nodular opacities. Mildly low lung volumes. No pleural effusions or pneumothorax. Mediastinum: Mediastinal contours appear normal. Heart size is normal. Bones and chest wall: No suspicious bony lesions. Overlying soft tissues appear unremarkable. IMPRESSION: Bilateral reticulonodular opacities are suspicious for a viral or atypical pneumonia versus edema. Approved by: Steven Madrid M.D. on 04/02/2025 at 0:06 ECG Data Interpretation: NSR HR 72 AL 120 QRS [address]-t wave change Change from 12/11/23 MDM Narrative Medical decision making narrative: All lab work, vital signs, nurse triage note, medication list, previous ER visits and imaging studies all reviewed. GCS of 15 nonfocal neuro exam. Head CT did not show any acute process, chest x-ray showed bilateral reticular nodular opacity suspicious for viral or atypical pneumonia versus edema. Viral panel was negative for any acute process. Heart score of 3. Pt had a dry nonproductive cough today when attempting to clear her airway otherwise no worsening cough. Differential diagnosis includes STEMI, NSTEMI, closed head injury, subarachnoid hemorrhage, subdural hemorrhage, pneumothorax, rib fracture, chest contusion. Discharge Plan Departure Patient Disposition: Home Clinical Impression: Fall Qualifiers: Encounter type: initial encounter Qualified Code(s): W19.XXXA - Unspecified fall, initial encounter Chest pain Qualifiers: Chest pain type: chest pain on breathing Qualified Code(s): R07.1 - Chest pain on breathing Activity Restrictions/Additional Instructions: Return with new or worsening symptoms. Follow up with PCP this week for follow up care. Prescriptions: No Action mirtazapine 15 mg tablet 15 mg PO BEDTIME Qty: 30 1RF Referrals: Rox Munoz MD [Primary Care Provider] - Stand Alone Forms: Patient Portal/API/Survey
[2025-04-01 23:17] VITALS: PULSE 73; RESP 24
--- NOTE | 2025-04-01 23:25 | DI.CT.S_ITS ---
PROCEDURE: CT HEAD/BRAIN WO CON INDICATIONS: fall/trauma TECHNIQUE: Noncontrast 4.5 mm thick angled axial sections acquired from the foramen magnum to the vertex, with coronal and sagittal reformats. For radiation dose reduction, the following was used: automated exposure control, adjustment of mA and/or kV according to patient size. COMPARISON: [facility], CT, CT HEAD/BRAIN WO CON, 12/11/2023, 13:33. [facility], CT, CT HEAD/BRAIN WO CON, 12/02/2023, 16:24. FINDINGS: Image quality: Diagnostic. CSF spaces: Basal cisterns are patent. No extra-axial fluid collections. The ventricles are symmetric in size and shape. Brain: No acute intracranial hemorrhage or mass effect. There is cerebral volume loss, with resultant ventricular and sulcal prominence. There are periventricular and deep white matter chronic small vessel ischemic changes. There is intracranial internal carotid artery atherosclerosis. Skull and face: Calvarium and visualized facial bones appear intact, without suspicious lesions. Sinuses: Partial opacification of the bilateral ethmoid air cells. Visualized sinuses and mastoids are otherwise clear. IMPRESSION: No acute intracranial pathology. Approved by: Steven Madrid M.D. on 04/02/2025 at 0:09
--- NOTE | 2025-04-01 23:29 | DI.RAD.S_ITS ---
PROCEDURE: XR CHEST 1V INDICATIONS: Chest Pain TECHNIQUE: One view of the chest was acquired. COMPARISON: [facility], CR, XR CHEST 2V, 12/02/2023, 16:29. [facility], CT, CT CHEST ABD PEL W CON, 12/12/2023, 11:40. [facility], CR, XR CHEST 1V, 12/11/2023, 13:01. [facility], CR, XR CHEST 1V, 08/17/2023, 21:02. FINDINGS: Surgical changes and devices: None. Lungs and pleura: Bilateral tibia nodular opacities. Mildly low lung volumes. No pleural effusions or pneumothorax. Mediastinum: Mediastinal contours appear normal. Heart size is normal. Bones and chest wall: No suspicious bony lesions. Overlying soft tissues appear unremarkable. IMPRESSION: Bilateral reticulonodular opacities are suspicious for a viral or atypical pneumonia versus edema. Approved by: Steven Madrid M.D. on 04/02/2025 at 0:06
[2025-04-01 23:30] VITALS: PULSE 73; RESP 31; O2SAT 96
[2025-04-01 23:41] LABS: Add Manual Diff / Slide Review NO; Basophils Absolute Auto 100 /uL (0-100); Basophils Percent Auto 1.4 % (0-2); Eosinophils Absolute Auto 400 /uL (0-450); Hematocrit 33.8 % (36-46); Hemoglobin 11.4 g/dL (12.0-16.0); Lymphocytes Absolute Auto 2000 /uL (1100-4500); Mean Corpuscular HGB Conc 33.7 % (30-36); Mean Corpuscular Hemoglobin 30.2 PG (26-34); Mean Corpuscular Volume 89.6 fL (80-100); Monocytes Absolute Auto 700 /uL (0-900); Monocytes Percent Auto 12.5 % (3-14); Neutrophils Absolute Auto 2300 /uL (1500-7000); Neutrophils Percent Auto 42.1 % (50-75); Platelet Count 235 X10^3/uL (150-400); Red Blood Cell Count 3.78 X10^6/uL (4.0-5.2); Red Cell Distribution Width 14.7 % (11.6-14.8); White Blood Cell Count 5.5 X10^3/uL (4.5-11.0)
[2025-04-01 23:44] LABS: INR 1.1 (0.9-1.3); Prothrombin Time 12.4 SECONDS (9.4-12.5)
[2025-04-01 23:46] LABS: PTT Partial Thromboplastin Tim 32 SECONDS (25.1-36.5)
[2025-04-01 23:48] LABS: Lactate (Lactic Acid) 1.2 mmol/L (0.7-2.1)
[2025-04-01 23:49] LABS: Alanine Aminotransferase 18 IU/L (<35); Albumin 4.3 g/dL (3.5-5.0); Albumin Globulin Ratio 1.1 (1.0-2.8); Alkaline Phosphatase 85 U/L (38-126); Aspartate Aminotransferase 32 IU/L (14-36); BUN Creatinine Ratio 21.7 (6-22); Bilirubin Total 0.4 mg/dL (0.2-1.3); Blood Urea Nitrogen 20 mg/dL (7-17); Calcium 9.4 mg/dL (8.4-10.2); Carbon Dioxide 25 mmol/L (22-32); Chloride 105 mmol/L (98-107); Creatine Kinase 111 U/L (30-135); Estimated Glomerular Filt Rate > 60 mL/min (>60); Globulin 3.9 g/dL (1.7-4.1); Glucose 142 mg/dL (70-99); HEMOLYSIS < 15 (0-50); Lipase 64 U/L (23-300); Magnesium 2.6 mg/dL (1.6-2.3); Potassium 4.1 mmol/L (3.4-5.1); Sodium 138 mmol/L (137-145); Total Protein 8.2 g/dL (6.3-8.2)
[2025-04-02] VITALS (8 sets, daily range): BP systolic 108–150; BP diastolic 57–107; PULSE 75–148; RESP 14–37; O2SAT 92–96
[2025-04-02] LABS: NT-proBNP (BNP-Adult 18+) 94 pg/mL (<450); Troponin I < 0.012 ng/mL (0.01-0.034)
--- NOTE | 2025-04-02 00:19 | PC.NURSE ---
While changing pt brief noted that she had her own underwear on then 3 pull ups over the top of this on. The underwear and 2 of the 3 briefs were soaked.
[2025-04-02 01:12] LABS: Influenza A - CEPHEID Flu A NEGATIVE (NEGATIVE); Influenza B - CEPHEID Flu B NEGATIVE (NEGATIVE); Respiratory Syncytial Virus Negative (Negative)
[2025-04-02 01:24] LABS: COVID-19 CEPHEID 4-PLEX PCR Negative (Negative)
[2025-04-02 01:59] LABS: Troponin I < 0.012 ng/mL (0.01-0.034)
== END 2025-04-02 03:10 | disposition home or self-care (01) ==
PROVIDERS: Emergency Provider Family Medicine; PCP Student in an Organized Health Care Education/Training Program
DX: R07.1 Chest pain on breathing (principal); W19.XXXA Unspecified fall, initial encounter
CPT/HCPCS: 0241U; 70450; 71045; 80053; 82550; 83605; 83690; 83735; 83880; 84484; 85025; 85610; 85730; 93005; 93010; 99283; 99284

== ENCOUNTER 2025-04-02 08:21 | Emergency (ER) | payer MEDICARE, MEDICAID, SELFPAY ==
[2023-12-11 18:52] VITALS: BMI 17.2
[2025-04-02] VITALS (10 sets, daily range): BP systolic 128–165; BP diastolic 60–85; PULSE 63–77; RESP 17–38; TEMP 36.9; O2SAT 94–98; BMI 27.2
--- NOTE | 2025-04-02 08:29 | EKG_ITS ---
[address] [address] Test Date: 2025-04-02 Pat Name: Elidia Valdez Department: Room: Gender: Female Structural Designer: HALLEY : 1950 Requested By: Order Number: [id number] Reading MD: Eugene Larose MD Measurements Intervals [place] Rate: 73 P: [place]: QRS: -13 QRSD: 86 T: 15 QT: 370 QTc: 407 Interpretive Statements Probable sinus rhythm, baseline artifact makes identification of P waves very difficult Electronically Signed On 04-02-2025 8:33:57 PDT by Eugene Larose MD
--- NOTE | 2025-04-02 08:33 | ED.CHESTPAIN ---
HPI - Chest Pain General Chief Complaint: Chest Pain Stated Complaint: Still in Pain Time Seen by Provider: 04/02/25 08:24 Source: patient Mode of arrival: EMS History of Present Illness HPI narrative: Patient is a 75-year-old history of NSTEMI cognitive decline, anemia presenting for the 2nd time with chest pain. She was seen evaluated here last night. She lives in assisted living facility sat down watching TV fell asleep and was on the floor. Complaining of some right-sided chest pain. Had workup is ultimately discharged home. Overall poor historian reports that she is still having pain and discomfort but sounds like she took Tylenol prior to arrival. She had 2- troponins last night. It does seem to be reproducible more with positioning and palpation. Related Data Previous Rx's Medication Instructions Recorded mirtazapine 15 mg tablet 15 mg PO BEDTIME #30 tabs 11/18/23 amoxicillin 500 mg capsule 1,000 mg (2 x 500 mg) PO TID 5 04/02/25 days #30 caps azithromycin 250 mg tablet See Rx Instructions PO .COMPLEX #6 04/02/25 tabs Allergies Allergy/AdvReac Type Severity Reaction Status Date / Time No Known Drug Allergies Allergy Verified 12/10/23 14:42 Patient History Family History Mother Heart disease Hypertension Stroke Social History household members: none alcohol intake: never tobacco type: cigarettes alcohol intake frequency: 0-2 drinks per day Exam Initial Vital Signs Initial Vital Signs: Vital Signs Temperature 98.4 F 04/02/25 08:22 Pulse Rate 77 04/02/25 08:22 Respiratory Rate 17 04/02/25 08:22 Blood Pressure 142/70 H 04/02/25 08:22 Pulse Oximetry 96 04/02/25 08:22 Oxygen Delivery Method Room Air 04/02/25 08:22 GENERAL: Alert mildly confused 75-year-old female and in no acute distress. HEENT: Head atraumatic,EOMI, pupils reactive, face symmetric, moist mucous membranes CARDIOVASCULAR: Regular rate and rhythm without murmurs, rubs or gallops. Slightly right-sided reproducible chest pain RESPIRATORY: Breath sounds equal bilaterally, no wheezes rales or rhonchi. ABDOMEN: Soft, nontender. Normoactive bowel sounds all 4 quadrants. No guarding or rebound. EXTREMITIES: Normal range of motion, no clubbing or edema. Neurovascularly intact NEUROLOGICAL: Alert and oriented x4.Normal gait and speech. Cranial nerves II through XII grossly intact. SKIN: Warm, dry, no laceration, no petechiae, no rashes or lesions. Course Orders Ordered: ED Orders 04/02/25 08:29 EKG-12 Lead Stat 04/02/25 08:57 Troponin & CK Cardiac Panel Stat 04/02/25 09:00 CT angio chest PE protocol Stat Vital Signs Vital signs: Vital Signs - 8 hr 04/02/25 10:30 04/02/25 10:30 04/02/25 11:00 Pulse Rate 63 70 Respiratory Rate 17 17 Blood Pressure 128/70 Pulse Oximetry 95 96 Oxygen Delivery Method 04/02/25 11:00 04/02/25 11:31 Pulse Rate 68 Respiratory Rate 19 Blood Pressure 164/81 H 165/77 H Pulse Oximetry 98 Oxygen Delivery Method Room Air MDM - Chest Pain Lab Data Labs: Lab Results 04/02/25 Range/Units 08:57 Total Creatine Kinase 111 (30-135) U/L Troponin I < 0.012 (0.01-0.034) ng/mL Imaging Data CT scan - chest: Radiologist's Impression: PROCEDURE: CT ANGIO CHEST PE PROTOCOL INDICATIONS: chest pain hx spiculated nodules TECHNIQUE: After the administration of intravenous contrast, 2 mm thick sections acquired from the pulmonary apices to the posterior costophrenic angles. 3-dimensional maximum intensity projection (MIP) coronal and sagittal reformats were then acquired through the thorax. For radiation dose reduction, the following was used: automated exposure control, adjustment of mA and/or kV according to patient size. COMPARISON: [facility], CT, CT CHEST ABD PEL W CON, 12/12/2023, 11:40. FINDINGS: Image quality: Diagnostic. Pulmonary arteries: Pulmonary arteries are normal in size, and demonstrate no intraluminal filling defects to suggest central pulmonary embolism. Lower Neck: No enlarged lymph nodes. Thyroid: No thyroid nodules which require sonographic follow up, per consensus guideline. Axillae: No enlarged lymph nodes. Chest Wall: Unremarkable. Bones: Unremarkable. Lungs and Pleura: Moderate centrilobular emphysema. Hazy airspace opacities are seen scattered in bilateral lung sanchez. Thickened interlobular septa in periphery of bilateral lung sanchez are noted suggestive of chronic interstitial lung parenchymal disease and pulmonary fibrosis. No pleural effusion or pneumothorax. Central and peripheral airway is patent. Heart: Heart size is mildly enlarged. No pericardial effusion. Thoracic Vessels: No aortic aneurysm. 2 vessel coronary artery atherosclerotic calcifications are seen. Mediastinum and Valeria: Prominent mediastinal lymph nodes are seen measures up to 1.1 cm in size in right paratracheal space and 1 cm in size in subcarinal space. Esophagus: No wall thickening. Moderate to large hiatal hernia. Upper Abdomen: Visualized upper abdomen solid organs and bowel loops appear normal. IMPRESSION: 1. No pulmonary embolus. No thoracic aortic aneurysm or gross dissection. 2. Cardiomegaly. No pericardial effusion. Mildly enlarged mediastinal lymph nodes which may be reactive in nature. Moderate to large size hiatal hernia. 3. Ill-defined ground-glass opacities are seen scattered in bilateral lung sanchez suggestive of patchy area of infiltrate versus atelectasis. Previously described bilateral pulmonary nodules are obscured by the presence of airspace opacities. No pleural effusion or pneumothorax. Moderate centrilobular emphysema. Thickened interlobular septa in periphery of bilateral lung sanchez concerning for pulmonary fibrosis. Short-term CT chest follow-up until resolution is recommended. Dictated by: Sunday Roth M.D. on 04/02/2025 at 10:19 Approved by: Sunday Roth M.D. on 04/02/2025 at 10:24 ECG Data Attestation: I personally reviewed and interpreted this ECG as follows: Prior ECG tracings: available for review Interpretation: Sinus rhythm rate 73 lots of artifact no obvious ST changes similar to previous EKGs MDM Narrative Medical decision making narrative: Patient 75-year-old female who is wheelchair-bound lives at [facility] a presenting today with ongoing right-sided chest pain. Earlier she was found down out of her chair and was having right-sided pain. She had 2- troponins and workup. Return this morning with ongoing pain. Repeat EKGs reviewed is overall reassuring similar to prior Chest CT ground-glass opacities seen in bilateral lung sanchez suggested of patchy infiltrate versus atelectasis She had no leukocytosis this morning 3rd troponin during this visit is negative Vitals are stable she was afebrile Unclear if this infiltrate is pneumonia. We will go ahead and treat with antibiotics but recommend outpatient follow-up. It is also noted that she had prominent mediastinal lymph nodes she previously had spiculated nodules so it was concerning for possible cancer. Previous blood work reviewed no leukocytosis vitals are stable, no concern for sepsis. PCP Dr. Munoz notifed to follow up CT Discharge Plan Departure Patient Disposition: Home Clinical Impression: Pneumonia Instructions: Atypical Pneumonia Activity Restrictions/Additional Instructions: *You have been diagnosed with pneumonia *What to do: At this time need repeat CT scan with primary care as outpatient *Continue to take medications as directed-->sent to [facility] Amoxicillin 1000 mg 3 times a day for 5 days Z-Levar take as directed *Follow up with your primary care provider in 2-3 days or call [phone] *Return to ER if you should have increasing shortness of breath or confusion or any new, worsening or concerning symptoms Prescriptions: New amoxicillin 500 mg capsule 1,000 mg PO TID 5 Days Qty: 30 0RF azithromycin 250 mg tablet See Rx Instructions PO .COMPLEX Qty: 6 0RF Rx Instructions: For 250 mg dose pack: take 500 mg today (day 1), then 250 mg for 4 days (days 2-5) No Action mirtazapine 15 mg tablet 15 mg PO BEDTIME Qty: 30 1RF Referrals: Rox Munoz MD [Primary Care Provider] - Stand Alone Forms: Patient Portal/API/Survey
--- NOTE | 2025-04-02 09:00 | DI.CT.S_ITS ---
PROCEDURE: CT ANGIO CHEST PE PROTOCOL INDICATIONS: chest pain hx spiculated nodules TECHNIQUE: After the administration of intravenous contrast, 2 mm thick sections acquired from the pulmonary apices to the posterior costophrenic angles. 3-dimensional maximum intensity projection (MIP) coronal and sagittal reformats were then acquired through the thorax. For radiation dose reduction, the following was used: automated exposure control, adjustment of mA and/or kV according to patient size. COMPARISON: [facility], CT, CT CHEST ABD PEL W CON, 12/12/2023, 11:40. FINDINGS: Image quality: Diagnostic. Pulmonary arteries: Pulmonary arteries are normal in size, and demonstrate no intraluminal filling defects to suggest central pulmonary embolism. Lower Neck: No enlarged lymph nodes. Thyroid: No thyroid nodules which require sonographic follow up, per consensus guideline. Axillae: No enlarged lymph nodes. Chest Wall: Unremarkable. Bones: Unremarkable. Lungs and Pleura: Moderate centrilobular emphysema. Hazy airspace opacities are seen scattered in bilateral lung sanchez. Thickened interlobular septa in periphery of bilateral lung sanchez are noted suggestive of chronic interstitial lung parenchymal disease and pulmonary fibrosis. No pleural effusion or pneumothorax. Central and peripheral airway is patent. Heart: Heart size is mildly enlarged. No pericardial effusion. Thoracic Vessels: No aortic aneurysm. 2 vessel coronary artery atherosclerotic calcifications are seen. Mediastinum and Valeria: Prominent mediastinal lymph nodes are seen measures up to 1.1 cm in size in right paratracheal space and 1 cm in size in subcarinal space. Esophagus: No wall thickening. Moderate to large hiatal hernia. Upper Abdomen: Visualized upper abdomen solid organs and bowel loops appear normal. IMPRESSION: 1. No pulmonary embolus. No thoracic aortic aneurysm or gross dissection. 2. Cardiomegaly. No pericardial effusion. Mildly enlarged mediastinal lymph nodes which may be reactive in nature. Moderate to large size hiatal hernia. 3. Ill-defined ground-glass opacities are seen scattered in bilateral lung sanchez suggestive of patchy area of infiltrate versus atelectasis. Previously described bilateral pulmonary nodules are obscured by the presence of airspace opacities. No pleural effusion or pneumothorax. Moderate centrilobular emphysema. Thickened interlobular septa in periphery of bilateral lung sanchez concerning for pulmonary fibrosis. Short-term CT chest follow-up until resolution is recommended. Dictated by: Sunday Roth M.D. on 04/02/2025 at 10:19 Approved by: Sunday Roth M.D. on 04/02/2025 at 10:24
[2025-04-02 09:15] LABS: Creatine Kinase 111 U/L (30-135)
--- NOTE | 2025-04-02 09:15 | PC.NURSE ---
Pt sitting up in [facility]. Warm blankets provided. Discussed plan of care, needs reinforcement. Reports that substernal pain is 1/10 .
[2025-04-02 09:28] LABS: Troponin I < 0.012 ng/mL (0.01-0.034)
== END 2025-04-02 11:45 | disposition home or self-care (01) ==
PROVIDERS: Emergency Provider Emergency Medicine; PCP Student in an Organized Health Care Education/Training Program
DX: J18.9 Pneumonia, unspecified organism (principal)
CPT/HCPCS: 36415; 71275; 82550; 84484; 93005; 99281; 99284; Q9967